=== PATIENT | male | born 1990 | race Caucasian/White ===

== ENCOUNTER 2016-07-13 07:23 | Inpatient (IN) | payer MEDICARE, MEDICAID ==
[~2016-07-13] VITALS: Ht 170.2 cm; Wt 81.2 kg
[2016-07-13 07:24] VITALS: BP 134/77; PULSE 94; RESP 16; TEMP 98.9; O2SAT 98
--- NOTE | 2016-07-13 10:27 | PD ---
HPI Chief Complaint: Psychiatric Symptoms Time Seen by Provider: 10:27 Travel History International Travel<30 days: No Contact w/Intl Traveler<30days: No Traveled to known affect area: No History of Present Illness HPI 26-year-old male came to the emergency room brought by his grandmother with history of major depression, suicidal ideation. She found him last night with a knife and she was afraid he was going to stab himself since he has done that in the recent past. Patient told his grandmother that he was hearing voices of Lucifer. Patient has history of cerebral palsy. He is not on any medications. He does occasional alcohol and marijuana. Patient was brought in voluntarily. [facility]LY [facility] Past Medical History Narrative Medical List of his past medical history as reviewed from the nursing note. Anxiety: No Depression: No Cerebral Palsy: Yes Diminished Hearing: No GERD: Yes Genitourinary: No Musculoskeletal: Yes (CP) Neurologic: No Reproductive: No Respiratory: No Immunizations Current: No Tetanus Vaccination: < 5 Years Past Surgical History Eye Surgery: Yes (EYE SURGERY) Other Surgery: Yes (HAMSTRING RELEASE 10 OR 11 Y/O) Social History Alcohol Use: No Tobacco Use: Yes Substance Use: Yes (RARELY SMOKES MARIJUANA) Allergies-Medications (Allergen,Severity, Reaction): Coded Allergies: *MDRO Multi-Drug Resistant Organism (Verified Allergy, Unknown, 06/18/16) MRSA 2013 & 2014 Comments List of his allergies reviewed from the nursing note. Reported Meds & Prescriptions Reported Meds & Active Scripts Active No Active Prescriptions or Reported Medications Narrative Medication List of his home medications reviewed from the nursing note. Review of Systems Except as stated in HPI: all other systems reviewed are Neg Physical Exam Narrative GENERAL: Awake, alert, no obvious distress SKIN: Warm and dry. HEAD: Atraumatic. Normocephalic. EYES: Pupils equal and round. No scleral icterus. No injection or drainage. Ophthalmoplegia ENT: No nasal bleeding or discharge. Mucous membranes pink and moist. NECK: Trachea midline. No JVD. CARDIOVASCULAR: Regular rate and rhythm. No murmur appreciated. RESPIRATORY: No accessory muscle use. Clear to auscultation. Breath sounds equal bilaterally. GASTROINTESTINAL: Abdomen soft, non-tender, nondistended. Hepatic and splenic margins not palpable. MUSCULOSKELETAL: No obvious deformities. No clubbing. No cyanosis. No edema. NEUROLOGICAL: Awake and alert. No obvious cranial nerve deficits. Motor grossly within normal limits. Normal speech. Cerebral palsy PSYCHIATRIC: Appropriate mood and affect; insight and judgment normal. Data Data Last Documented VS Vital Signs Date Time Temp Pulse Resp B/P Pulse Ox O2 Delivery O2 Flow Rate FiO2 07/13/16 07:24 98.9 94 16 134/77 98 Room Air Orders Complete Blood Count With Diff (07/13/16 10:30) Comprehensive Metabolic Panel (07/13/16 10:30) Drug Screen, Random Urine (07/13/16 10:30) Psych Screen (07/13/16 10:30) Sodium Chlor 0.9% 1000 Ml Inj (Ns 1000 M (07/13/16 11:30) Admit To Inpatient Psych (07/13/16 ) Vital Signs (Adult) YONI.Q12H.E (07/13/16 15:42) Activity Oob Ad Julieta (07/13/16 15:42) Lorazepam (Ativan) (07/13/16 15:45) Lorazepam Inj (Ativan Inj) (07/13/16 15:45) Acetaminophen (Tylenol) (07/13/16 15:45) Magnesium Hydroxide Liq (Milk Of Magnesi (07/13/16 15:45) Al-Mag Hy-Si 40-40-4 Mg/Ml Liq (Mag-Al P (07/13/16 15:45) Admit Order (Ed Use Only) (07/13/16 ) Risperidone (Risperdal) (07/13/16 21:00) Benztropine (Cogentin) (07/13/16 21:00) Labs Laboratory Tests Test 07/13/16 07/13/16 11:00 12:40 White Blood Count 8.2 TH/MM3 Red Blood Count 6.12 MIL/MM3 Hemoglobin 18.5 GM/DL Hematocrit 52.6 % Mean Corpuscular Volume 85.9 FL Mean Corpuscular Hemoglobin 30.3 PG Mean Corpuscular Hemoglobin 35.2 % Concent Red Cell Distribution Width 13.3 % Platelet Count 131 TH/MM3 Mean Platelet Volume 10.6 FL Neutrophils (%) (Auto) 61.1 % Lymphocytes (%) (Auto) 26.6 % Monocytes (%) (Auto) 10.4 % Eosinophils (%) (Auto) 1.4 % Basophils (%) (Auto) 0.5 % Neutrophils # (Auto) 5.0 TH/MM3 Lymphocytes # (Auto) 2.2 TH/MM3 Monocytes # (Auto) 0.8 TH/MM3 Eosinophils # (Auto) 0.1 TH/MM3 Basophils # (Auto) 0.0 TH/MM3 CBC Comment DIFF FINAL Differential Comment Sodium Level 139 MEQ/L Potassium Level 3.9 MEQ/L Chloride Level 106 MEQ/L Carbon Dioxide Level 28.0 MEQ/L Anion Gap 5 MEQ/L Blood Urea Nitrogen 9 MG/DL Creatinine 0.90 MG/DL Estimat Glomerular Filtration 104 ML/MIN Rate Random Glucose 89 MG/DL Calcium Level 9.1 MG/DL Total Bilirubin 1.3 MG/DL Aspartate Amino Transf 12 U/L (AST/SGOT) Alanine Aminotransferase 27 U/L (ALT/SGPT) Alkaline Phosphatase 67 U/L Total Protein 7.3 GM/DL Albumin 4.1 GM/DL Urine Opiates Screen NEG Urine Barbiturates Screen NEG Urine Amphetamines Screen NEG Urine Benzodiazepines Screen NEG Urine Cocaine Screen NEG Urine Cannabinoids Screen POS MDM Medical Decision Making Medical Screen Exam Complete: Yes Emergency Medical Condition: Yes Medical Record Reviewed: Yes Differential Diagnosis Major depression, suicidal ideation Narrative Course 10:42 AM awaiting for blood test results for medical clearance. Patient would require psych screen after that. Procedures EKG Prior to Arrival: No Scripts No Active Prescriptions or Reported Meds Kimmie Castro MD Jul 13, 2016 10:27
[2016-07-13 11:09] LABS: BASOPHIL % 0.5 % (0.0-2.0); EOSINOPHIL # 0.1 TH/MM3 (0-0.4); EOSINOPHIL % 1.4 % (0.0-4.0); HEMATOCRIT 52.6 % (39.0-51.0); HEMO FLAGS DIFF FINAL; LYMPH % 26.6 % (9.0-44.0); LYMPHOCYTE # 2.2 TH/MM3 (1.0-4.8); MEAN CELL VOLUME 85.9 FL (80.0-100.0); MEAN CORPUSCULAR HEMOGLOBIN 30.3 PG (27.0-34.0); MEAN CORPUSCULAR HGB CONC 35.2 % (32.0-36.0); MONO % 10.4 % (0.0-8.0); NEUT % 61.1 % (16.0-70.0); PLATELET COUNT 131 TH/MM3 (150-450); RED BLOOD COUNT 6.12 MIL/MM3 (4.50-5.90); RED CELL DISTRIBUTION WIDTH 13.3 % (11.6-17.2); WHITE BLOOD COUNT 8.2 TH/MM3 (4.0-11.0)
[2016-07-13 11:30] LABS: ALT (GPT) 27 U/L (12-78); ANION GAP 5 MEQ/L (5-15); AST (GOT) 12 U/L (15-37); BLOOD UREA NITROGEN 9 MG/DL (7-18); CHLORIDE 106 MEQ/L (98-107); GLOMERULAR FILTRATION RATE 104 ML/MIN (>89); POTASSIUM 3.9 MEQ/L (3.5-5.1); SODIUM (NA) 139 MEQ/L (136-145)
[2016-07-13] MEDS ORDERED: SODIUM CHLOR 0.9% 1000 ML INJ 1,000 ML IV ONE (11:30)
[2016-07-13 11:32] LABS: ALKALINE PHOSPHATASE 67 U/L (45-117); TOTAL BILIRUBIN ADULT 1.3 MG/DL (0.2-1.0)
[2016-07-13 13:06] LABS: AMPHETAMINE, URINE NEG (NEG); BARBITURATES, URINE NEG (NEG); COCAINE, URINE NEG (NEG)
[2016-07-13] MEDS ORDERED: MAGNESIUM HYDROXIDE SUSP 30 ML CUP PO PRN (15:45)
[2016-07-13] MEDS ORDERED: LORazepam 2 MG/ML VIAL IM PRN ×2 (15:45)
[2016-07-13] MEDS ORDERED: LORazepam 0.5 MG TAB PO PRN (15:45)
[2016-07-13] MEDS ORDERED: ACETAMINOPHEN 325 MG TAB PO PRN (15:45)
[2016-07-13] MEDS ORDERED: LORazepam 1 MG TAB PO PRN (15:45)
[2016-07-13] MEDS ORDERED: ALUMINUM/MAGNESIUM/SIMETH 30 ML CUP PO PRN (15:45)
--- NOTE | 2016-07-13 16:15 | PD.CONS ---
Provisional Diagnosis Admission Date [place] I. Unspecified psychosis [place] II. Deferred [place] III. Cerebral palsy [place] V. 40 History of Present Illness Service Psychiatry Consult Requested By Primary Care Physician Julien Pena M.D. HPI The patient is a 26-year-old man, domiciled with his grandmother, unemployed, supported by [facility], with psychiatric history of intellectual disability, most probably mild to moderate, due to cerebral palsy, no previous hospitalizations, no previous outpatient psychiatric care, no previous suicidal attempts, who came to the emergency room brought by his grandmother with history of depressive symptoms d suicidal ideation, he was brought involuntary basis. As per grandmother, She found him last night with a knife and she was afraid he was going to stab himself since he has done that in the recent past, about 2 weeks ago when she found him with a knife beside him and bleeding in his chest, he first states he staff accidentally, but later he states he was hearing voices. Patient told his grandmother that he was hearing voices of Lucifer. As per grandmother, last night he told her that he wanted to sacrifice himself as voices are telling him in his head. She also explains that for the last 3 weeks he has not been himself, he has been isolated, not talking a lot, no enjoying things that he usually enjoys, talking to self, not taking showers, and refusing to eat. He is wheelchair-bound, able to walk with a walker, he eats independently, our independently, can go out to walk in the neighborhood. On psychiatric evaluation patient is found in position, poorly cooperative , withdrawn, guarded. He had to be redirected several times in order to answer some of our questions. He says that he has been sad in the last weeks, but doesn't elaborate about the reason of his sadness. When he was asked directly about the reason he started himself with a knife in his chest 2 weeks ago, he took time, seemed to be internally preoccupied, but finally said "there are people in my head telling me to and to sacrifice myself". Patient explains that he doesn't want to , that he loves his mother he lost her grandmother, "but they are telling me to , and they're telling him to now". Patient refused to describe the nature of his auditory hallucinations. He also said that he is sad, "very sad", sleeping poorly, with poor appetite, "thinking too much". He denies suicidal and homicidal ideation at this moment. Patient is fully oriented 3, he is concrete, but cognitive assessment is limited due to lack of cooperation. He reports daily use of marijuana, denies use of cocaine, heroine, PCP, amphetamines, benzodiazepines, and and other drugs, he denies the use of alcohol. Review of Systems Endocrine: DENIES: Heat/cold intolerance, Polydipsia, Polyuria, Polyphagia Eyes: DENIES: Blurred vision, Diplopia, Eye inflammation, Eye pain, Vision loss , Photosensitivity, Double Vision Ears, nose, mouth, throat: DENIES: Tinnitus, Hearing loss, Vertigo, Nasal discharge, Oral lesions, Throat pain, Hoarseness, Ear Pain, Running Nose, Epistaxis, Sinus Pain, Toothache, Odynophagia Respiratory: DENIES: Apneas, Cough, Snoring, Wheezing, Hemoptysis, Sputum production, Shortness of breath Cardiovascular: DENIES: Chest pain, Palpitations, Syncope, Dyspnea on Exertion , PND, Lower Extremity Edema, Orthopnea, Claudication Gastrointestinal: DENIES: Abdominal pain, Black stools, Bloody stools, Constipation, Diarrhea, Nausea, Vomiting, Difficulty Swallowing, Anorexia Musculoskeletal: DENIES: Joint pain, Muscle aches, Stiffness, Joint Swelling, Back pain, Neck pain Integumentary: DENIES: Abnormal pigmentation, Nail changes, Pruritus, Rash Hematologic/lymphatic: DENIES: Bruising, Lymphadenopathy Immunologic/allergic: DENIES: Eczema, Urticaria Neurologic: DENIES: Abnormal gait, Headache, Localized weakness, Paresthesias, Seizures, Speech Problems, Tremor, Poor Balance Psychiatric: COMPLAINS OF: Depression, Hallucinations Past Family Social History Coded Allergies: *MDRO Multi-Drug Resistant Organism (Verified Allergy, Unknown, 06/18/16) MRSA 2012 & 2013 No Active Prescriptions or Reported Meds Family History His father is bipolar Social History Patient was born in [place], he lives with his grandmother, he did so schooling a special ed, he is single, on SSI Patient's Strengths (min. 2) Family support Physical Exam Vital Signs Vital Signs Date Time Temp Pulse Resp B/P Pulse Ox O2 Delivery O2 Flow Rate FiO2 07/13/16 07:24 98.9 94 16 134/77 98 Room Air Mental Status Examination Appearance man, looks younger than his stated age, Jimbo extravism, poorly cooperative, guarded Speech: Hesitant, Slow Orientation: x3 Memory: Unremarkable Thought Process: Linear, Other (concrete) Thought Content: Paranoid Hallucination Type: Auditory (commanding type voices, telling him to ) Attention and Concentration: Abnormal Suicidal Ideation: No Previous Suicide Attempts: Yes Homicidal Ideation: No Insight: Poor Judgement: Impulsive Affect: Irritable Affect if Inappropriate: Flat Mood: Oppositional Motor Activity: Abnormal gait-specify (wheelchair-bound) Assessment & Plan Problem List: (1) Unspecified psychosis Assessment & Plan: 26-year-old man, psychiatric history of intellectual disability, most probably mild to moderate, not officially diagnosed, due to cerebral palsy, no previous psychiatric hospitalizations, no previous suicidal attempts, no outpatient psychiatric care in the past, never Nicole acted before, no significant medical history. Who presents brought by his grandmother voluntarily, because in the last 3 weeks patient has been isolated, talking to himself, eating poorly, sleeping poorly, no enjoying life as he usually does, very withdrawn and not taking care of himself. 2 weeks ago patient stabbed himself in the chest, first he said he was accidentally, later on he said he was hearing the voice of lucifer. Last night he was found by his grandmother with a knife beside him and he told her that he wants to sacrifice himself. On psychiatric evaluation today the patient is guarded, poorly communicative, but he does endorses command in type auditory hallucinations of voices telling him to and sacrifice himself. Patient doesn't seem to be insightful about this psychosis, and psychosis is to be egodystonic. At this moment due to the level of peligrosity of his psychosis the patient represents a high risk of danger to self and others and needs psychiatric admission for stabilization and safety. Since this is the first break psychosis Brain CT without contrast will be ordered to rule out brain organic causes. Patient will be Nicole acted and committed for involuntary psychiatric admission. We will restart Risperdal 1 mg twice a day for psychosis, and benztropine 1 mg twice a day to avoid EPS. Please, transfer patient to psychiatric [facility] once a bed is available. Extensive psychoeducation, motivation and support was provided to the patient and also to grandmother. Patient is to be in fall precaution. ICD Code: F29 Assessment & Plan Estimated LOS: days Anthony Correa MD Jul 13, 2016 16:14
--- NOTE | 2016-07-13 16:53 | RADRPT ---
EXAM DATE/TIME: 07/13/2016 16:39 [facility] COMPARISON: CT BRAIN W/O CONTRAST, June 18, 2016, 15:59. INDICATIONS : Altered mental status; psychosis. RADIATION DOSE: 41.05 CTDIvol (mGy) MEDICAL HISTORY : Cerebral palsy. SURGICAL HISTORY : None. ENCOUNTER: Initial ACUITY: 1 day PAIN SCALE: 0/10 LOCATION: cranial TECHNIQUE: Multiple contiguous axial images were obtained of the head. Using automated exposure control and adj ustment of the mA and/or kV according to patient size, radiation dose was kept as low as reasonably a chievable to obtain optimal diagnostic quality images. FINDINGS: Examination quality is degraded by patient motion particularly at the high convexities. CEREBRUM: The ventricles are normal. No evidence of midline shift, mass lesion, hemorrhage or acute infarction . No extra-axial fluid collections are seen. POSTERIOR FOSSA: The cerebellum and brainstem demonstrate no acute finding. The 4th ventricle is midline. The cerebe llopontine angle is unremarkable. EXTRACRANIAL: The visualized sinuses are clear. SKULL: The calvaria is intact. No evidence of skull fracture. CONCLUSION: Examination quality is degraded due to patient motion with limited evaluation of the high convexities . Otherwise, stable examination without an acute finding identified. Julien Tirado MD on July 13, 2016 at 16:48 Board Certified Radiologist. This report was verified electronically.
[2016-07-13 17:56] VITALS: BP 121/71; PULSE 86; RESP 19; O2SAT 97
[2016-07-13 18:16] VITALS: BP 133/81; PULSE 99; RESP 18; TEMP 97.7; O2SAT 95
[2016-07-13] MEDS: BENZTROPINE MESYLATE 1 MG TAB PO SCH (21:39)
[2016-07-13] MEDS: risperiDONE 1 MG TAB PO SCH (21:39)
[2016-07-14 05:31] VITALS: BP 134/61; PULSE 96; RESP 16; TEMP 98.1; O2SAT 98
[2016-07-14] MEDS: BENZTROPINE MESYLATE 1 MG TAB PO SCH ×2 (09:09→20:37)
[2016-07-14] MEDS: risperiDONE 1 MG TAB PO SCH ×2 (09:09→20:37)
[2016-07-14] MEDS ORDERED: ALUMINUM/MAGNESIUM/SIMETH 30 ML CUP PO PRN (10:30)
[2016-07-14] MEDS ORDERED: diphenhydrAMINE HCL 50 MG CAP PO PRN (10:30)
[2016-07-14] MEDS ORDERED: ACETAMINOPHEN 325 MG TAB PO PRN (10:30)
[2016-07-14] MEDS ORDERED: MAGNESIUM HYDROXIDE SUSP 30 ML CUP PO PRN (10:30)
--- NOTE | 2016-07-14 10:43 | HHI.HP ---
Provisional Diagnosis Admission Date Jul 13, 2016 at 15:48 [place] I. Unspecified psychosis, major depressive disorder single episode with psychotic features F 32.3 [place] II. Deferred [place] III. Cerebral palsy [place] V. 40 Certification of Person's Competence To Provide Express and Informed Consent I have personally examined Dash KimJr , a person being served at [facility] on, Jul 14, 2016 10:26. Express and informed consent means consent voluntarily given in writing, by a competent person, after sufficient explanation and disclosure of the subject matter involved to enable the person to make a knowing and willful decision without any element of force, fraud, deceit, duress, or other form of constraint or coercion. This person is 18 years of age or older, is not now known to be incompetent to consent to treatment with a guardian advocate, and does not have a health care surrogate or proxy currently making medical treatment decisions. I have found this person to be one of the following: [] Competent to provide express and informed consent, as defined above, for voluntary admission to this facility and is competent to provide express and informed consent for treatment. He/she has the consistent capacity to make well reasoned, willful, and knowing decisions concerning his or her medical or mental health treatment. The person fully and consistently understands the purpose of the admission for examination/placement and is fully capable of personally exercising all rights assured [place] [x] Incompetent to provide express and informed consent to voluntary admission, and this is incompetent to provide express and informed consent to treatment. The person must be transferred to involuntary status and a petition for a guardian advocate filed with the Circuit Court. [] Refusing to provide express and informed consent to voluntary admission but is competent to provide express and informed consent for treatment. The person must be discharged or transferred to involuntary status. Form shall be completed within 24 hours of a person's arrival at the receiving facility and filed in the clinical record of each person: 1. Admitted on a voluntary basis 2. Permitted to provide express and informed consent to his/her own treatment 3. Allowed to transfer from involuntary to voluntary status 4. Prior to permitting a person to consent to his or her own treatment after having been previously found incompetent to consent to treatment. History of Present Illness Capacity: Lacks Capacity HPI The patient is a 26-year-old man, domiciled with his grandmother, unemployed, supported by [facility], with psychiatric history of intellectual disability, most probably mild to moderate, due to cerebral palsy, no previous hospitalizations, no previous outpatient psychiatric care, no previous suicidal attempts, who came to the emergency room brought by his grandmother with history of depressive symptoms d suicidal ideation, he was brought involuntary basis. As per grandmother, She found him last night with a knife and she was afraid he was going to stab himself since he has done that in the recent past, about 2 weeks ago when she found him with a knife beside him and bleeding in his chest, he first states he staff accidentally, but later he states he was hearing voices. Patient told his grandmother that he was hearing voices of Lucifer. As per grandmother, last night he told her that he wanted to sacrifice himself as voices are telling him in his head. She also explains that for the last 3 weeks he has not been himself, he has been isolated, not talking a lot, no enjoying things that he usually enjoys, talking to self, not taking showers, and refusing to eat. He is wheelchair-bound, able to walk with a walker, he eats independently, our independently, can go out to walk in the neighborhood. On psychiatric evaluation patient is found in position, poorly cooperative , withdrawn, guarded. He had to be redirected several times in order to answer some of our questions. He says that he has been sad in the last weeks, but doesn't elaborate about the reason of his sadness. When he was asked directly about the reason he started himself with a knife in his chest 2 weeks ago, he took time, seemed to be internally preoccupied, but finally said "there are people in my head telling me to and to sacrifice myself". Patient explains that he doesn't want to , that he loves his mother he lost her grandmother, "but they are telling me to , and they're telling him to now". Patient refused to describe the nature of his auditory hallucinations. He also said that he is sad, "very sad", sleeping poorly, with poor appetite, "thinking too much". He denies suicidal and homicidal ideation at this moment. Patient is fully oriented 3, he is concrete, but cognitive assessment is limited due to lack of cooperation. He reports daily use of marijuana, denies use of cocaine, heroine, PCP, amphetamines, benzodiazepines, and and other drugs, he denies the use of alcohol. 07/14/16 Above note dictated by Dr. Rosas reviewed and agreed with Patient seen by me in day room with floor staff, patient continues sad with poor eye contact reluctantly acknowledging the auditory hallucinations of command nature. Though he denies suicidality today. His responses are slow concrete and linear. He has poor eye contact but some of this might be explainable by his CPAP. He does deny any alcohol or drug use denies any homicidality appears patient has no significant prior mental health history the grandmother did state there was some attempt at self injurious behavior within the past few weeks. Is a family history of bipolar with his father. Urine toxicology on admission is positive for marijuana. He also had a contact with us the middle of June 2016 with a positive urine toxicology for marijuana At this time I feel patient does meet criteria for involuntary psychiatric hospitalization I will do first opinion requests a second opinion I also question his ability to make appropriate decisions concerning his care thus I' ll ask for healthcare surrogate and guardian advocate. With their mothers permission we will start him on his Respinol that was ordered by Dr. Rosas and I will add Lexapro 10 mg daily to the regimen. We will also have hospitalist consult with us Review of Systems ROS Limitations: Clinical Condition (CP) Except as stated in HPI: all other systems reviewed are Neg Past Psych History Psychological trauma history Patient lives with grandmother Violence risk - others (6 mos) Low Violence risk - self (6 mos) History of self mutilation Substance Abuse History Drugs/Alcohol past 12 months Patient tox 100 positive for marijuana Past Family Social History Coded Allergies: *MDRO Multi-Drug Resistant Organism (Verified Allergy, Unknown, 06/18/16) MRSA 2012 & 2013 Past Medical History Medically cleared ED history of CP No Active Prescriptions or Reported Meds Current Medications Medications (Trade) Dose Ordered Sig/Parmjit Route Start Time Stop Time Status Last Admin (Ativan) 1 mg Q6H PRN PO 07/13/16 15:45 (Ativan Inj) 1 mg Q6H PRN IM 07/13/16 15:45 (Tylenol) 650 mg Q4H PRN PO 07/13/16 15:45 (Milk Of Magnesia Liq) 30 ml DAILY PRN PO 07/13/16 15:45 (Mag-Al Plus Susp Liq) 30 ml Q6H PRN PO 07/13/16 15:45 (risperDAL) 1 mg Q12HR PO 07/13/16 21:00 07/14/16 09:09 (Cogentin) 1 mg Q12HR PO 07/13/16 21:00 07/14/16 09:09 Family History Patient lives with grandmother father history of bipolar disorder Social History Patient lives with grandmother has had 2 positive urine toxicology for marijuana Patient's Strengths (min. 2) Family support cooperative Physical Exam Patient seen screened in ED exam reviewed and agreed with vital signs blood pressure 134/61 pulse 96 respirations 16 Vital Signs Vital Signs Date Time Temp Pulse Resp B/P Pulse Ox O2 Delivery O2 Flow Rate FiO2 07/14/16 05:31 98.1 96 16 134/61 98 07/13/16 17:56 Room Air Mental Status Examination Alert oriented to person place and time white male sitting in Rupali chair spasticity reflective of CP noted poor to fair eye contact Appearance Clean neatly Speech: Hesitant, Slow Orientation: x3 Memory: Unremarkable Thought Process: Linear, Other (concrete) Thought Content: Paranoid Hallucination Type: Auditory (commanding type voices, telling him to ) Attention and Concentration: Abnormal Suicidal Ideation: No Previous Suicide Attempts: Yes Homicidal Ideation: No Insight: Poor Judgement: Impulsive Affect: Irritable Affect if Inappropriate: Flat Mood: Sad (somewhat restricted), Oppositional Motor Activity: Abnormal gait-specify (wheelchair-bound) Assessment & Plan Problem List: (1) Unspecified psychosis ICD Code: F29 (2) Major depressive disorder with psychotic features ICD Code: F32.3 Assessment & Plan Estimated LOS: 5-7 days patient meets criteria for involuntary psychiatric hospitalization of the Nicole act I'll do first opinion requests second opinion, I question as capacity I will also ask for healthcare surrogate and guardian advocate. Will the hospitalist also says jose ramon. Will have counselor contact patient's grandmother to try to arrange for meeting on 07/16 Discharge Planning To be determined Request HC Surrog/Guard Advoc?: Yes Julien Jackson MD Jul 14, 2016 10:43
--- NOTE | 2016-07-14 15:23 | PD.CONS ---
Provisional Diagnosis Admission Date Jul 13, 2016 at 15:48 Kell I. 1. Unspecified psychosis Rule out affective disorder with psychotic features. Rule out primary psychotic disorder. Kell II. Deferred Kell V. GAF is 35 presently History of Present Illness Service Psychiatry Consult Requested By Dr. Jackson Reason for Consult Second opinion Primary Care Physician Julien Pena M.D. HPI From Dr. Jackson's H&P: The patient is a 26-year-old man, domiciled with his grandmother, unemployed, supported by [facility], with psychiatric history of intellectual disability, most probably mild to moderate, due to cerebral palsy, no previous hospitalizations, no previous outpatient psychiatric care, no previous suicidal attempts, who came to the emergency room brought by his grandmother with history of depressive symptoms d suicidal ideation, he was brought involuntary basis. As per grandmother, She found him last night with a knife and she was afraid he was going to stab himself since he has done that in the recent past, about 2 weeks ago when she found him with a knife beside him and bleeding in his chest, he first states he staff accidentally, but later he states he was hearing voices. Patient told his grandmother that he was hearing voices of Lucifer. As per grandmother, last night he told her that he wanted to sacrifice himself as voices are telling him in his head. She also explains that for the last 3 weeks he has not been himself, he has been isolated, not talking a lot, no enjoying things that he usually enjoys, talking to self, not taking showers, and refusing to eat. He is wheelchair-bound, able to walk with a walker, he eats independently, our independently, can go out to walk in the neighborhood. On psychiatric evaluation patient is found in position, poorly cooperative , withdrawn, guarded. He had to be redirected several times in order to answer some of our questions. He says that he has been sad in the last weeks, but doesn't elaborate about the reason of his sadness. When he was asked directly about the reason he started himself with a knife in his chest 2 weeks ago, he took time, seemed to be internally preoccupied, but finally said "there are people in my head telling me to and to sacrifice myself". Patient explains that he doesn't want to , that he loves his mother he lost her grandmother, "but they are telling me to , and they're telling him to now". Patient refused to describe the nature of his auditory hallucinations. He also said that he is sad, "very sad", sleeping poorly, with poor appetite, "thinking too much". He denies suicidal and homicidal ideation at this moment. Patient is fully oriented 3, he is concrete, but cognitive assessment is limited due to lack of cooperation. He reports daily use of marijuana, denies use of cocaine, heroine, PCP, amphetamines, benzodiazepines, and and other drugs, he denies the use of alcohol. 07/14/16 Above note dictated by Dr. Rosas reviewed and agreed with Patient seen by me in day room with floor staff, patient continues sad with poor eye contact reluctantly acknowledging the auditory hallucinations of command nature. Though he denies suicidality today. His responses are slow concrete and linear. He has poor eye contact but some of this might be explainable by his CPAP. He does deny any alcohol or drug use denies any homicidality appears patient has no significant prior mental health history the grandmother did state there was some attempt at self injurious behavior within the past few weeks. Is a family history of bipolar with his father. Urine toxicology on admission is positive for marijuana. He also had a contact with us the middle of June 2016 with a positive urine toxicology for marijuana At this time I feel patient does meet criteria for involuntary psychiatric hospitalization I will do first opinion requests a second opinion I also question his ability to make appropriate decisions concerning his care thus I' ll ask for healthcare surrogate and guardian advocate. With their mothers permission we will start him on his Respinol that was ordered by Dr. Rosas and I will add Lexapro 10 mg daily to the regimen. We will also have hospitalist consult with us On my examination today: Patient seen and examined. Chart reviewed. I have additionally reviewed the psychiatric screen and note the collateral from grandmother that the patient said something in connection with Lucifer and being sacrificed and may have even stabbed himself in the chest a couple of weeks ago. Case discussed with nurse on the inpatient psychiatric unit. On my examination today, the patient tends to minimize the circumstances of his presentation here. He says of his grandmother" she just wants to make sure I'm all right. She saw me when she woke up with a knife. I'm fine, I really am." Patient denies any suicidal or homicidal ideation at this time but it is unclear that he is reliable to contract for safety. He denies any AVH, nor can I elicit any delusional beliefs at this time. He does admit to some depressive symptomatology including low mood and occasional feelings of hopelessness and worthlessness. He reports his sleep and appetite are fair and he denies any concentration deficit. No hypomanic or manic symptoms noted. Past psychiatric history: Patient denies a history of psychiatric diagnosis. He has been under psychiatric care in the past he says but hasn't seen a psychiatrist in a while. He denies a history of psychiatric admissions. He denies any history of suicide attempts but says that he has made suicidal threats "every once in a while." Family history: Patient reports an extensive family history of bipolar disorder. Chemical dependency history: Patient admits to occasional use of cannabis. Social history: Patient reports that he lives with his grandmother and several friends. He has a GED. He is not presently working. He is unmarried with no children. He denies any legal issues. Denies any access to guns or firearms. Review of Systems ROS Limitations: Poor Historian Other No reported physical complaints today. Past Family Social History Coded Allergies: *MDRO Multi-Drug Resistant Organism (Verified Allergy, Unknown, 06/18/16) MRSA 2012 & 2013 Past Medical History See electronic medical record No Active Prescriptions or Reported Meds Current Medications Medications (Trade) Dose Ordered Sig/Parmjit Route Start Time Stop Time Status Last Admin (Ativan) 1 mg Q6H PRN PO 07/13/16 15:45 (Tylenol) 650 mg Q4H PRN PO 07/13/16 15:45 (Milk Of Magnesia Liq) 30 ml DAILY PRN PO 07/13/16 15:45 (Mag-Al Plus Susp Liq) 30 ml Q6H PRN PO 07/13/16 15:45 (risperDAL) 1 mg Q12HR PO 07/13/16 21:00 07/14/16 09:09 (Cogentin) 1 mg Q12HR PO 07/13/16 21:00 07/14/16 09:09 (Benadryl) 50 mg HS PRN PO 07/14/16 10:30 (Lexapro) 10 mg DAILY PO 07/15/16 09:00 Family History See above Social History See above Patient's Strengths (min. 2) In a monitored setting. Verbally fluent. Physical Exam A physical examination was completed in the emergency room by the ER staff and the patient was medically cleared. On my examination today, the patient appears to be in no acute physical distress. Labs and vital signs reviewed. Vital Signs Vital Signs Date Time Temp Pulse Resp B/P Pulse Ox O2 Delivery O2 Flow Rate FiO2 07/14/16 05:31 98.1 96 16 134/61 98 07/13/16 17:56 Room Air Lab Results Item Value Date Time White Blood Count 8.2 TH/MM3 07/13/16 1100 Hemoglobin 18.5 GM/DL H 07/13/16 1100 Platelet Count 131 TH/MM3 L 07/13/16 1100 Sodium Level 139 MEQ/L 07/13/16 1100 Potassium Level 3.9 MEQ/L 07/13/16 1100 Chloride Level 106 MEQ/L 07/13/16 1100 Carbon Dioxide Level 28.0 MEQ/L 07/13/16 1100 Blood Urea Nitrogen 9 MG/DL 07/13/16 1100 Creatinine 0.90 MG/DL 07/13/16 1100 Total Bilirubin 1.3 MG/DL H 07/13/16 1100 Aspartate Amino Transf (AST/SGOT) 12 U/L L 07/13/16 1100 Alanine Aminotransferase (ALT/SGPT) 27 U/L 07/13/16 1100 Urine Cannabinoids Screen POS H 07/13/16 1240 Mental Status Examination Patient is in hospital gown. He is somewhat disheveled but appears to be maintaining basic hygiene. He is awake and alert and oriented to person and hospital at least. He does have some motoric abnormalities that I suspect her a consequence of his history of cerebral palsy but no hand tremor, no dyskinesias noted. Speech is within normal limits for rate, tone and volume. Language and fund of knowledge may be very slightly reduced for age. Mood is depressed and affect is blunted. Thought process linear. No loosening of associations. No evident delusions. Denies audiovisual hallucinations. Denies suicidal or homicidal ideation but it is unclear that he is reliable to contract for safety. Insight and judgment are unclear. Assessment & Plan Problem List: (1) Unspecified psychosis ICD Code: F29 Assessment & Plan Given the patient's history, the circumstances of his presentation here in his presentation on my examination today, I concur with Dr. Jackson that there are enough residual concerns for safety that the patient meets criteria for involuntary psychiatric hospitalization under the Nicole act. I've completed second opinion paperwork. Further care as per Dr. Jackson. Thank you very much for this consultation. Signing off. Discharge Planning Per Dr. Jackson Request HC Surrog/Guard Advoc?: Yes Dash Bertrand MD Jul 14, 2016 15:23
--- NOTE | 2016-07-14 18:48 | MB ---
cc: GERALD OMALLEY MD DATE OF CONSULTATION 07/14/2016 DATE OF [address] Jackson CONSULTING PHYSICIAN Dr. Gerald Omalley. REASON FOR ADMISSION Major depression with suicidal intention. REASON FOR CONSULTATION Assist in medical management. HISTORY OF THE PRESENT ILLNESS The patient is a pleasant 26-year-old very unfortunate male with a significant past medical history of cerebral palsy. The patient was brought to the ER by his grandma with a history of major depression and suicidal ideation. The patient had a knife and was afraid that going to stab himself since he had done within the recent past. The patient was admitted to psychiatry because of this reason. The patient is seen in his room with RN at present. The patient is denying any complaint. The patient does not remember what happened yesterday. The patient is alert and oriented x3. As per patient his grandmother was getting a knife. The patient denies any headache, dizziness, nausea, vomiting, cough, fever, chills, abdominal pain, chest pain, diaphoresis, palpitations. Denies any genitourinary symptoms. The patient does not know when the last time he had a bowel movement. As per RN at the bedside it is reported that he had a bowel movement yesterday. PAST MEDICAL HISTORY 1. Major depression. 2. Cerebral palsy. PAST SURGICAL HISTORY History of ____ and hamstring surgery. SOCIAL HISTORY The patient does not drink. He rarely smoked marijuana. He smokes cigarettes. MEDICATIONS Reviewed, please EMR. ALLERGIES NO KNOWN DRUG ALLERGIES. HE HAS MULTI DRUG RESISTANT ORGANISM IN THE PAST. FAMILY HISTORY Unable to get it from the patient. REVIEW OF SYSTEMS As described in the history of present illness. Otherwise negative for 10 systems. PHYSICAL EXAMINATION GENERAL: The patient is alert and oriented times three. Well built, well-nourished sitting on a chair without any apparent distress at present. VITAL SIGNS: Show the patient is afebrile. Pulse is 96, respiratory rate 16, blood pressure 134/61. Pulse oximetry is 98% on room air. HEENT: Head is atraumatic, normocephalic. Eyes negative conjunctival icterus. Mouth unremarkable. NECK: Supple. Negative increase in JVD. Negative thyromegaly. Central trachea. CHEST: Clear to auscultation. CARDIOVASCULAR: S1 and S2 audible. Unable to hear any S3 gallop. ABDOMEN: Soft, non-tender, no organomegaly. Positive bowel sounds. MUSCULOSKELETAL: Extremities no cyanosis or pedal edema appreciated. AIRFRAME AND POWERPLANT TECHNICIAN: Alert and oriented. Normal facial features. The patient has (3:46) squints on examination. Pupils equal, round, reactive to light and accommodation. Moving his bilateral upper extremities slowly. Can move his lower extremities slowly. He has a 4/5 to 5/5 lower extremity power. As per the RN he did walk with the help of physical therapy 10 steps with a walker. SKIN: Warm and dry. LABORATORY DATA Investigations, hemoglobin 18.5, hematocrit 52.6, platelet count 131. Total bilirubin 1.3, AST is 12. Drug screen positive for cannabinoids. IMAGING Head CT was done which shows stable exam but quality is degraded due to the patient's motion with limited evaluation of high convexity. ASSESSMENT 1. Severe depression with suicidal intention / ideation. 2. Cerebral palsy. RECOMMENDATIONS Medications reviewed. Psych problem and management as per psychiatrist. We will keep him on a on a as needed basis for constipation. Labs reviewed. High hemoglobin/hematocrit secondary to smoking. Platelet count is 131. The patient has a platelet count in the past. It seems is stable. I explained to the patient. Discussed with RN. We will follow this patient on a as needed basis. Call if needed. Gerald Omalley MD JP/CHANTEL /3:54 PM /6:05 PM
[2016-07-14 19:40] VITALS: BP 123/73; PULSE 78; RESP 18; TEMP 98.8; O2SAT 98
[2016-07-15 06:34] VITALS: BP 101/64; PULSE 94; RESP 16; TEMP 97.3; O2SAT 100
[2016-07-15 07:42] LABS: HEMATOCRIT 50.2 % (39.0-51.0); MEAN CELL VOLUME 86.3 FL (80.0-100.0); MEAN CORPUSCULAR HEMOGLOBIN 29.9 PG (27.0-34.0); MEAN CORPUSCULAR HGB CONC 34.6 % (32.0-36.0); PLATELET COUNT 102 TH/MM3 (150-450); RED BLOOD COUNT 5.81 MIL/MM3 (4.50-5.90); RED CELL DISTRIBUTION WIDTH 13.1 % (11.6-17.2); REVIEW FLAG FINAL; WHITE BLOOD COUNT 5.6 TH/MM3 (4.0-11.0)
[2016-07-15] MEDS: BENZTROPINE MESYLATE 1 MG TAB PO SCH ×2 (09:10→20:26)
[2016-07-15] MEDS: risperiDONE 1 MG TAB PO SCH ×2 (09:10→20:26)
[2016-07-15] MEDS: ESCITALOPRAM OXALATE 10 MG TAB PO SCH (09:10)
--- NOTE | 2016-07-15 11:53 | HHI.PR ---
Subjective Remarks offering no complaint wants to go home ROS for 10 point system is unemarkable Objective Objective Results - Vital Signs Date Time Temp Pulse Resp B/P Pulse Ox O2 Delivery O2 Flow Rate FiO2 07/15/16 06:34 97.3 94 16 101/64 100 07/14/16 19:40 98.8 78 18 123/73 98 I/O 07/14/16 07/14/16 07/14/16 07/15/16 07/15/16 07/15/16 07:00 15:00 23:00 07:00 15:00 23:00 Intake Total 1780 ml 120 ml Balance 1780 ml 120 ml Intake Oral 1780 ml 120 ml # Voids 2 4 2 # Bowel Movements 1 1 Result Diagram: 07/15/16 0733 07/13/16 1100 Other Results Laboratory Tests Test 07/15/16 07:33 White Blood Count 5.6 Red Blood Count 5.81 Hemoglobin 17.4 Hematocrit 50.2 Mean Corpuscular Volume 86.3 Mean Corpuscular Hemoglobin 29.9 Mean Corpuscular Hemoglobin 34.6 Concent Red Cell Distribution Width 13.1 Platelet Count 102 Mean Platelet Volume 10.4 Physical Exam Physical Exam GENERAL: The patient is alert and oriented times three. Well built, well-nourished sitting on a chair without any apparent distress at present. VITAL SIGNS:reviewed HEENT: Head is atraumatic, normocephalic. Eyes negative conjunctival icterus. Mouth unremarkable. NECK: Supple. Negative increase in JVD. CHEST: Clear to auscultation. CARDIOVASCULAR: S1 and S2 audible. Unable to hear any S3 gallop. ABDOMEN: Soft, non-tender, no organomegaly. Positive bowel sounds. MUSCULOSKELETAL: Extremities no cyanosis or pedal edema appreciated. TIMBER SETTER: Alert and oriented. Normal facial features. SKIN: Warm and dry. A/P Assessment and Plan 1. Severe depression with suicidal intention / ideation. 2. Cerebral palsy. RECOMMENDATIONS Psych problem and management as per psychiatrist. MOM for constipation. as per rn had BM yestrday Labs reviewed. High hemoglobin/hematocrit secondary to smoking. Platelet count is 102. The patient has a low platelet count in the past. It seems is stable. I explained to the patient. Discussed with RN. We will follow this patient on a as needed basis. Call if needed. Fay Omalley MD Jul 15, 2016 11:53
--- NOTE | 2016-07-15 12:16 | HHI.PYPN ---
Subjective Remarks Patient seen in dayroom the floor staff, patient calm pleasant with me denies suicidality homicidality, states he visited with his grandmother last night and was a good visit. Patient compliant medications. For now continue treatment Review of Systems Except as stated in HPI: all other systems reviewed are Neg Objective Alert: Yes [place]: Person, Place Mood: Calm Affect: Restricted Memory Intact: Comment (fair) Hallucinations: Other (denies) Delusions: No Delusion Type: Other (vigilant) Suicidal: Ideation (denies today) Homicidal: Ideation (denies today) Insight/Judgement Poor Labs Test 07/15/16 07:33 White Blood Count 5.6 TH/MM3 Red Blood Count 5.81 MIL/MM3 Hemoglobin 17.4 GM/DL Hematocrit 50.2 % Mean Corpuscular Volume 86.3 FL Mean Corpuscular Hemoglobin 29.9 PG Mean Corpuscular Hemoglobin 34.6 % Concent Red Cell Distribution Width 13.1 % Platelet Count 102 TH/MM3 Mean Platelet Volume 10.4 FL Vitals/IOs Vital Signs Date Time Temp Pulse Resp B/P Pulse Ox O2 Delivery O2 Flow Rate FiO2 07/15/16 06:34 97.3 94 16 101/64 100 07/13/16 17:56 Room Air Intake and Output 07/14/16 07/14/16 07/15/16 08:00 16:00 00:00 Intake Total 1180 ml 600 ml Balance 1180 ml 600 ml Assessment & Plan Problem List: (1) Unspecified psychosis ICD Code: F29 Assessment & Plan Estimated LOS: days patient calm cooperative no behavior problems at this time compliant medications. For now continue treatment Justification for Cont. Inpt. At this time patient decompensated placed in the lower level of care Discharge Planning To be determined Request HC Surrog/Guard Advoc?: Yes Julien Jackson MD Jul 15, 2016 12:16
[2016-07-15] MEDS: MAGNESIUM HYDROXIDE SUSP 30 ML CUP PO PRN ×2 (16:54→17:02)
[2016-07-15 18:01] VITALS: RESP 16; TEMP 98.4; O2SAT 99
[2016-07-15 19:27] VITALS: BP 111/61; PULSE 86; RESP 17; TEMP 98.1; O2SAT 97
[2016-07-16 06:00] VITALS: BP 124/66; PULSE 100; RESP 16; TEMP 98.3; O2SAT 96
[2016-07-16] MEDS: risperiDONE 1 MG TAB PO SCH ×2 (09:14→22:14)
[2016-07-16] MEDS: BENZTROPINE MESYLATE 1 MG TAB PO SCH ×2 (09:14→22:14)
[2016-07-16] MEDS: ESCITALOPRAM OXALATE 10 MG TAB PO SCH (09:15)
--- NOTE | 2016-07-16 12:19 | HHI.PYPN ---
Subjective Remarks Patient seen in day room with medical student Alfreda, patient calm pleasant with us. Denies suicidality homicidality voices or visions. He has been no behavioral problem on the unit. It appears grandmother was unable to make it to a meeting today, she talked with our counselor stating she would only be available Tuesday or 's after 5 PM. Will attempt to reach her by phone and by treatment team on 07/19 Review of Systems Except as stated in HPI: all other systems reviewed are Neg Objective Alert: Yes [place]: Person, Place Mood: Calm Affect: Restricted Memory Intact: Comment (fair) Hallucinations: Other (denies) Delusions: No Delusion Type: Other (vigilant) Suicidal: Ideation (denies today) Homicidal: Ideation (denies today) Insight/Judgement Poor to Fair Vitals/IOs Vital Signs Date Time Temp Pulse Resp B/P Pulse Ox O2 Delivery O2 Flow Rate FiO2 07/16/16 06:00 98.3 100 16 124/66 96 07/13/16 17:56 Room Air Intake and Output 07/15/16 07/15/16 07/16/16 08:00 16:00 00:00 Intake Total 120 ml 720 ml Balance 120 ml 720 ml Assessment & Plan Problem List: (1) Unspecified psychosis ICD Code: F29 Assessment & Plan Estimated LOS: days patient improving, now denies suicidality voices visions, appears is some difficulty contacting patient's grandmother who is his caregiver. For now continue treatment Justification for Cont. Inpt. At this time patient will decompensate if placed in a lower level of care Discharge Planning To be determined Request HC Surrog/Guard Advoc?: Yes Julien Jackson MD Jul 16, 2016 12:19
[2016-07-16 19:35] VITALS: BP 137/66; PULSE 109; RESP 16; TEMP 98.5; O2SAT 95
[2016-07-17 06:12] VITALS: BP 145/91; PULSE 114; RESP 18; TEMP 97.6; O2SAT 99
[2016-07-17] MEDS: BENZTROPINE MESYLATE 1 MG TAB PO SCH ×2 (09:00→21:04)
[2016-07-17] MEDS: risperiDONE 1 MG TAB PO SCH ×2 (10:30→21:04)
[2016-07-17] MEDS: ESCITALOPRAM OXALATE 10 MG TAB PO SCH (10:31)
--- NOTE | 2016-07-17 12:41 | HHI.PYPN ---
Subjective Remarks Patient was seen and case discussed with nursing. Patient minimizes reasons for admission. He is vague and denies hearing auditory hallucinations telling him to hurt himself. Denies any voices today. Denies suicidal ideations thought or plan. Compliant with medications Objective Alert: Yes [place]: Person, Place Mood: Calm Affect: Restricted Memory Intact: Comment (fair) Hallucinations: Other (denies) Delusions: No Delusion Type: Other (vigilant) Suicidal: Ideation (denies today) Homicidal: Ideation (denies today) Insight/Judgement Poor Vitals/IOs Vital Signs Date Time Temp Pulse Resp B/P Pulse Ox O2 Delivery O2 Flow Rate FiO2 07/17/16 06:12 97.6 114 18 145/91 99 07/13/16 17:56 Room Air Intake and Output 07/16/16 07/16/16 07/17/16 08:00 16:00 00:00 Intake Total 1080 ml 600 ml Balance 1080 ml 600 ml Assessment & Plan Problem List: (1) Unspecified psychosis ICD Code: F29 Assessment & Plan Continue current treatment plan Justification for Cont. Inpt. Patient will decompensate in a less restrictive setting Request HC Surrog/Guard Advoc?: Yes Kane Zhong DO Jul 17, 2016 12:41
[2016-07-17 18:00] VITALS: BP 119/72; PULSE 93; RESP 17; TEMP 99.2; O2SAT 98
[2016-07-18 05:53] VITALS: BP 137/68; PULSE 102; RESP 16; TEMP 98.1; O2SAT 98
[2016-07-18] MEDS: BENZTROPINE MESYLATE 1 MG TAB PO SCH ×2 (09:00→21:16)
[2016-07-18] MEDS: ESCITALOPRAM OXALATE 10 MG TAB PO SCH (09:00)
[2016-07-18] MEDS: risperiDONE 1 MG TAB PO SCH ×2 (09:00→21:16)
--- NOTE | 2016-07-18 12:40 | HHI.PYPN ---
Subjective Remarks Patient was seen and case discussed with nursing. Patient is pleasant and cooperative with exam. Compliant with medications. A productive visit with his family yesterday. Patient continues to deny auditory visual hallucinations. He is guarded and flat during the interview. Mood is "okay." Objective Alert: Yes [place]: Person, Place Mood: Calm Affect: Restricted Memory Intact: Comment (fair) Hallucinations: Other (denies) Delusions: No Delusion Type: Other (vigilant) Suicidal: Ideation (denies today) Homicidal: Ideation (denies today) Insight/Judgement Poor Vitals/IOs Vital Signs Date Time Temp Pulse Resp B/P Pulse Ox O2 Delivery O2 Flow Rate FiO2 07/18/16 05:53 98.1 102 16 137/68 98 Intake and Output 07/17/16 07/17/16 07/18/16 08:00 16:00 00:00 Intake Total 0 ml 1080 ml 240 ml Balance 0 ml 1080 ml 240 ml Assessment & Plan Problem List: (1) Unspecified psychosis ICD Code: F29 Assessment & Plan Patient will decompensate in a less restrictive setting Justification for Cont. Inpt. Continue current treatment plan Request HC Surrog/Guard Advoc?: Yes Kane Zhong DO Jul 18, 2016 12:40
[2016-07-18 18:00] VITALS: BP 122/68; PULSE 67; RESP 16; TEMP 97.5; O2SAT 98
[2016-07-19 05:45] VITALS: BP 128/58; PULSE 95; RESP 17; TEMP 97.1; O2SAT 98
[2016-07-19] MEDS: BENZTROPINE MESYLATE 1 MG TAB PO SCH ×2 (08:26→20:23)
[2016-07-19] MEDS: risperiDONE 1 MG TAB PO SCH ×2 (08:27→20:23)
[2016-07-19] MEDS: ESCITALOPRAM OXALATE 10 MG TAB PO SCH (08:27)
--- NOTE | 2016-07-19 15:39 | HHI.PYPN ---
Subjective Remarks Patient discussed with treatment team and medical student Alfreda, chart review , patient seen on unit. Patient continues calm cooperative with me. Does not denies suicidality homicidality voices or visions. Compliant medications. We are unable to contact patient's grandmother today did talk about placement issues will attempt again tomorrow Review of Systems Except as stated in HPI: all other systems reviewed are Neg Objective Alert: Yes [place]: Person, Place Mood: Calm Affect: Restricted Memory Intact: Comment (fair) Hallucinations: Other (denies) Delusions: No Delusion Type: Other (vigilant) Suicidal: Ideation (denies today) Homicidal: Ideation (denies today) Insight/Judgement Very poor Vitals/IOs Vital Signs Date Time Temp Pulse Resp B/P Pulse Ox O2 Delivery O2 Flow Rate FiO2 07/19/16 05:45 97.1 95 17 128/58 98 Intake and Output 07/18/16 07/18/16 07/19/16 08:00 16:00 00:00 Intake Total 0 ml 1580 ml 600 ml Balance 0 ml 1580 ml 600 ml Assessment & Plan Problem List: (1) Unspecified psychosis ICD Code: F29 Assessment & Plan Estimated LOS: days patient calmer today now denies suicidality voices or visions. Compliant medications, need further conversation with patient's grandmother about placement Justification for Cont. Inpt. At this time patient will decompensate if placed in a lower level of care Discharge Planning To be determined Request HC Surrog/Guard Advoc?: Yes Julien Jackson MD Jul 19, 2016 15:39
[2016-07-19 18:34] VITALS: BP 116/63; PULSE 75; RESP 17; TEMP 98.6; O2SAT 98
[2016-07-20 06:25] VITALS: BP 117/59; PULSE 82; RESP 18; TEMP 97.6; O2SAT 98
[2016-07-20] MEDS: risperiDONE 1 MG TAB PO SCH (09:00)
[2016-07-20] MEDS: ESCITALOPRAM OXALATE 10 MG TAB PO SCH (09:00)
[2016-07-20] MEDS: BENZTROPINE MESYLATE 1 MG TAB PO SCH (09:00)
[2016-07-20] MEDS ORDERED: ESCI10TA PO (13:39)
[2016-07-20] MEDS ORDERED: RISP1 PO (13:39)
[2016-07-20] MEDS ORDERED: BENZ1TAB PO (13:39)
--- NOTE | 2016-07-20 13:47 | HHI.DS ---
Psychiatry Discharge Summary Inpatient Psychiatric care?: Yes Advance Directive: No Reason Not Provided: Due to Patient Condition Mental Health AdvanceDirective: No Health Care Proxy: No Admission Admission Date Jul 13, 2016 at 15:48 Admission Diagnosis: (1) Major depressive disorder with psychotic features ICD Code: F32.[address] Jackson's H&P: The patient is a 26-year-old man, domiciled with his grandmother, unemployed, supported by [facility], with psychiatric history of intellectual disability, most probably mild to moderate, due to cerebral palsy, no previous hospitalizations, no previous outpatient psychiatric care, no previous suicidal attempts, who came to the emergency room brought by his grandmother with history of depressive symptoms d suicidal ideation, he was brought involuntary basis. As per grandmother, She found him last night with a knife and she was afraid he was going to stab himself since he has done that in the recent past, about 2 weeks ago when she found him with a knife beside him and bleeding in his chest, he first states he staff accidentally, but later he states he was hearing voices. Patient told his grandmother that he was hearing voices of Lucifer. As per grandmother, last night he told her that he wanted to sacrifice himself as voices are telling him in his head. She also explains that for the last 3 weeks he has not been himself, he has been isolated, not talking a lot, no enjoying things that he usually enjoys, talking to self, not taking showers, and refusing to eat. He is wheelchair-bound, able to walk with a walker, he eats independently, our independently, can go out to walk in the neighborhood. On psychiatric evaluation patient is found in position, poorly cooperative , withdrawn, guarded. He had to be redirected several times in order to answer some of our questions. He says that he has been sad in the last weeks, but doesn't elaborate about the reason of his sadness. When he was asked directly about the reason he started himself with a knife in his chest 2 weeks ago, he took time, seemed to be internally preoccupied, but finally said "there are people in my head telling me to and to sacrifice myself". Patient explains that he doesn't want to , that he loves his mother he lost her grandmother, "but they are telling me to , and they're telling him to now". Patient refused to describe the nature of his auditory hallucinations. He also said that he is sad, "very sad", sleeping poorly, with poor appetite, "thinking too much". He denies suicidal and homicidal ideation at this moment. Patient is fully oriented 3, he is concrete, but cognitive assessment is limited due to lack of cooperation. He reports daily use of marijuana, denies use of cocaine, heroine, PCP, amphetamines, benzodiazepines, and and other drugs, he denies the use of alcohol. 07/14/16 Above note dictated by Dr. Rosas reviewed and agreed with Patient seen by me in day room with floor staff, patient continues sad with poor eye contact reluctantly acknowledging the auditory hallucinations of command nature. Though he denies suicidality today. His responses are slow concrete and linear. He has poor eye contact but some of this might be explainable by his CPAP. He does deny any alcohol or drug use denies any homicidality appears patient has no significant prior mental health history the grandmother did state there was some attempt at self injurious behavior within the past few weeks. Is a family history of bipolar with his father. Urine toxicology on admission is positive for marijuana. He also had a contact with us the middle of June 2016 with a positive urine toxicology for marijuana At this time I feel patient does meet criteria for involuntary psychiatric hospitalization I will do first opinion requests a second opinion I also question his ability to make appropriate decisions concerning his care thus I' ll ask for healthcare surrogate and guardian advocate. With their mothers permission we will start him on his Respinol that was ordered by Dr. Rosas and I will add Lexapro 10 mg daily to the regimen. We will also have hospitalist consult with us On my examination today: Patient seen and examined. Chart reviewed. I have additionally reviewed the psychiatric screen and note the collateral from grandmother that the patient said something in connection with Lucifer and being sacrificed and may have even stabbed himself in the chest a couple of weeks ago. Case discussed with nurse on the inpatient psychiatric unit. On my examination today, the patient tends to minimize the circumstances of his presentation here. He says of his grandmother" she just wants to make sure I'm all right. She saw me when she woke up with a knife. I'm fine, I really am." Patient denies any suicidal or homicidal ideation at this time but it is unclear that he is reliable to contract for safety. He denies any AVH, nor can I elicit any delusional beliefs at this time. He does admit to some depressive symptomatology including low mood and occasional feelings of hopelessness and worthlessness. He reports his sleep and appetite are fair and he denies any concentration deficit. No hypomanic or manic symptoms noted. Past psychiatric history: Patient denies a history of psychiatric diagnosis. He has been under psychiatric care in the past he says but hasn't seen a psychiatrist in a while. He denies a history of psychiatric admissions. He denies any history of suicide attempts but says that he has made suicidal threats "every once in a while." Family history: Patient reports an extensive family history of bipolar disorder. Chemical dependency history: Patient admits to occasional use of cannabis. Social history: Patient reports that he lives with his grandmother and several friends. He has a GED. He is not presently working. He is unmarried with no children. He denies any legal issues. Denies any access to guns or firearms. Tobacco Use In Past 30 Days: No Tobacco Past 30 Days Alcohol Use: Never Hospital Course Patient showed good behavior from admission, compliant medications, was cooperative with staff with help with his ADLs and hygiene. He denies suicidality homicidality voices or visions. The medications were managed, he tolerating them without problems, the psychosis did resolve also. Patient is been no behavior problems with past few days. At this time he no longer meets criteria for inpatient psychiatric stay. Thus will be discharged today. [place] to transport him later this afternoon to his grandmother's house. Rx 1 month. Follow-up medical services of the community Results Blood Pressure 117 / 59 Vital Signs Date Time Temp Pulse Resp B/P Pulse Ox O2 Delivery O2 Flow Rate FiO2 07/20/16 06:25 97.6 82 18 117/59 98 Urine toxicology positive for marijuana Summary of Procedures None done Imaging Last Impressions Head CT 07/13/16 0000 Signed Impressions: Service Date/Time: Wednesday, July 13, 2016 16:39 - CONCLUSION: Examination quality is degraded due to patient motion with limited evaluation of the high convexities. Otherwise, stable examination without an acute finding identified. Julien Tirado MD Pending results at discharge: No Medications # of Antipsychotic meds at D/C: 1 Approp Antipsych med options 1 - Minimum of three failed multiple trials of monotherapy. 2 - Documented plan to taper to monotherapy due to previous use of multiple meds OR cross-taper in progress at D/C. 3 - Documentation of augmentation of Clozapine. 4 - Justification other than those listed in allowable values 1-3, document here : Discharge Discharge Date: Jul 20, 2016 Discharge Diagnosis: (1) Major depressive disorder with psychotic features Diagnosis: Principal ICD Code: F32.3 Mental Status Exam at Disch Alert oriented white male sitting in Rupali chair spasticity movements from CP noted, he is otherwise normal active, mood is euthymic to somewhat restricted, affect shows decreased range intensity. He denies auditory or visual hallucinations, no delusions noted insight and judgment is poor cognition is grossly intact Pt Condition on Discharge: Stable Discharge Disposition: Discharge Home (as tolerated with his CPAP) Discharge Instructions Diet Instructions: As Tolerated, No Restrictions Activities you can perform: Regular-No Restrictions Scheduled Appointment: [facility] Appointment Date: Jul 22, 2016 Appointment Time: 1:45 Discharge Time > 30 minutes Discharge/Advance Care Plan Health Problems: (1) Unspecified psychosis Goals to promote your health * To prevent worsening of your condition and complications * To maintain your health at the optimal level Directions to meet your goals Take your medications as prescribed Follow your dietary instruction Follow activity as directed Keep your appointments as scheduled Take your immunizations and boosters as scheduled If your symptoms worsen call your PCP, if no PCP go to Urgent Care Center or Emergency Room For 24/01 questions related to your inpatient stay or results of tests pending at discharge, please contact Dr. Julien Jackson at Smoking is Dangerous to Your Health. Avoid second hand smoking Julien Jackson MD Jul 20, 2016 13:47
== END 2016-07-20 17:30 | disposition home or self-care (01) | DRG 885 ==
LOC: NEPC 07:23 → NEDA 15:48 → H250 18:10
PROVIDERS: ADMIT Psychiatry & Neurology Psychiatry; ATTEND Psychiatry & Neurology Psychiatry
DX: F32.3 Major depressive disorder, single episode, severe with psychotic features (principal); G80.9 Cerebral palsy, unspecified; F17.210 Nicotine dependence, cigarettes, uncomplicated
CPT/HCPCS: 70450; 80053; 80307; 85025; 85027; 99284

== ENCOUNTER 2017-04-21 19:26 | Emergency (ER) | payer MEDICARE, MEDICAID ==
[~2017-04-21] VITALS: Ht 170.2 cm; Wt 77.0 kg
[~2017-04-21 19:26] MED LIST: BENZ1TAB PO; ESCI10TA PO; RISP1 PO
[2017-04-21 19:28] VITALS: BP 150/82; PULSE 83; RESP 16; TEMP 98.1; O2SAT 98
[2017-04-21] MEDS ORDERED: Cogentin (20:01)
[2017-04-21] MEDS ORDERED: SODIUM CHLOR 0.9% 1000 ML INJ 1,000 ML IV ONE (21:00)
[2017-04-21] MEDS ORDERED: ONDANSETRON HCL 4 MG/2 ML VIAL IV PUSH ONE (21:00)
--- NOTE | 2017-04-21 21:14 | RADRPT ---
EXAM DATE/TIME: 04/21/2017 20:54 [facility] COMPARISON: CT BRAIN W/O CONTRAST, July 13, 2016, 16:39. INDICATIONS : Dizziness. RADIATION DOSE: 39.84 CTDIvol (mGy) MEDICAL HISTORY : Cerebral palsy. SURGICAL HISTORY : None. ENCOUNTER: Initial ACUITY: 1 day PAIN SCALE: 0/10 LOCATION: cranial TECHNIQUE: Multiple contiguous axial images were obtained of the head. Using automated exposure control and adj ustment of the mA and/or kV according to patient size, radiation dose was kept as low as reasonably a chievable to obtain optimal diagnostic quality images. DICOM format image data is available electro nically for review and comparison. FINDINGS: CEREBRUM: The ventricles are normal for age. No evidence of midline shift, mass lesion, hemorrhage or acute in farction. No extra-axial fluid collections are seen. POSTERIOR FOSSA: The cerebellum and brainstem are intact. The 4th ventricle is midline. The cerebellopontine angle i s unremarkable. EXTRACRANIAL: The visualized portion of the orbits is intact. SKULL: The calvaria is intact. No evidence of skull fracture. CONCLUSION: Normal examination. No significant change has occurred. Johnathan Constantino MD on April 21, 2017 at 21:12 Board Certified Radiologist. This report was verified electronically.
[2017-04-21 21:56] LABS: AUTOMATED NEUTROPHIL # 5.9 TH/MM3 (1.8-7.7); BASOPHIL % 0.4 % (0.0-2.0); EOSINOPHIL % 0.5 % (0.0-4.0); HEMATOCRIT 50.1 % (39.0-51.0); HEMO FLAGS DIFF FINAL; LYMPH % 18.3 % (9.0-44.0); LYMPHOCYTE # 1.5 TH/MM3 (1.0-4.8); MEAN CORPUSCULAR HEMOGLOBIN 30.4 PG (27.0-34.0); MONO % 9.8 % (0.0-8.0); PLATELET COUNT 141 TH/MM3 (150-450); RED BLOOD COUNT 5.76 MIL/MM3 (4.50-5.90); RED CELL DISTRIBUTION WIDTH 13.1 % (11.6-17.2); WHITE BLOOD COUNT 8.3 TH/MM3 (4.0-11.0)
[2017-04-21 22:57] LABS: ALT (GPT) 34 U/L (12-78); ANION GAP 6 MEQ/L (5-15); AST (GOT) 13 U/L (15-37); BICARBONATE 29.7 MEQ/L (21.0-32.0); BLOOD UREA NITROGEN 10 MG/DL (7-18); CHLORIDE 106 MEQ/L (98-107); GLOMERULAR FILTRATION RATE 105 ML/MIN (>89); POTASSIUM 3.5 MEQ/L (3.5-5.1); SODIUM (NA) 142 MEQ/L (136-145)
[2017-04-21 22:59] LABS: ALKALINE PHOSPHATASE 72 U/L (45-117); TOTAL BILIRUBIN ADULT 1.3 MG/DL (0.2-1.0)
[2017-04-21] MEDS ORDERED: ZOFR4TAB3 SL (23:08)
--- NOTE | 2017-04-21 23:08 | PD ---
HPI Chief Complaint: GI Complaint Time Seen by Provider: 20:05 Travel History International Travel<30 days: No Contact w/Intl Traveler<30days: No Traveled to known affect area: No History of Present Illness HPI This is a 26-year-old male who has a history of cerebral palsy who presents to the emergency department with vomiting. He says that for 4 days he's been feeling nauseous, constant, moderate severity, associated with multiple episodes of vomiting. He's not been able to keep anything down. He also had a headache initially when the vomiting started but that since subsided. He denies any fevers or chills. He denies any diarrhea. He's had no sick contacts. PFSH Past Medical History Anxiety: No Depression: No Cancer: No Cardiovascular Problems: No Cerebral Palsy: Yes Diabetes: No Diminished Hearing: No GERD: Yes Genitourinary: No Headaches: No Musculoskeletal: Yes (CP) Neurologic: No Psychiatric: No Reproductive: No Respiratory: No Immunizations Current: Yes Seizures: No Past Surgical History Eye Surgery: Yes (EYE SURGERY) Other Surgery: Yes (HAMSTRING RELEASE 10 OR 11 Y/O) Social History Alcohol Use: No Tobacco Use: No Substance Use: Yes (RARELY SMOKES MARIJUANA) Allergies-Medications (Allergen,Severity, Reaction): Coded Allergies: *MDRO Multi-Drug Resistant Organism (Verified Allergy, Unknown, 04/21/17) MRSA 2012 & 2014 Reported Meds & Prescriptions Reported Meds & Active Scripts Active Risperdal (Risperidone) 1 Mg Tab 1 Mg PO Q12HR Escitalopram (Escitalopram Oxalate) 10 Mg Tab 10 Mg PO DAILY Reported [Cogentin] Review of Systems Except as stated in HPI: all other systems reviewed are Neg Physical Exam Narrative GENERAL:Well appearing, no acute distress SKIN: Focused skin assessment warm and dry. HEAD: Atraumatic. Normocephalic. EYES: Pupils equal and round. No injection or drainage. ENT: Moist mucous membranes NECK: Trachea midline. CARDIOVASCULAR: Regular rate and rhythm. No murmur appreciated. RESPIRATORY: Clear to auscultation. Breath sounds equal bilaterally. GASTROINTESTINAL: Abdomen soft, non-tender, nondistended. MUSCULOSKELETAL: No obvious deformities. NEUROLOGICAL: Awake and alert. No obvious cranial nerve deficits. No dysarthria or aphasia. PSYCHIATRIC: Appropriate mood and affect; insight and judgment normal. Data Data Last Documented VS Vital Signs Date Time Temp Pulse Resp B/P (MAP) Pulse Ox O2 Delivery O2 Flow Rate FiO2 04/21/17 19:28 98.1 83 16 150/82 (104) 98 Room Air Orders Orders Complete Blood Count With Diff (04/21/17 20:46) Comprehensive Metabolic Panel (04/21/17 20:46) ^ Insert Iv (04/21/17 20:46) Lipase (04/21/17 20:46) Urinalysis - C+S If Indicated (04/21/17 20:46) Sodium Chlor 0.9% 1000 Ml Inj (Ns 1000 M (04/21/17 21:00) Ondansetron Inj (Zofran Inj) (04/21/17 21:00) Ct Brain W/O Iv Contrast(Rout) (04/21/17 ) Labs Laboratory Tests Test 04/21/17 20:52 04/21/17 22:28 White Blood Count 8.3 TH/MM3 Red Blood Count 5.76 MIL/MM3 Hemoglobin 17.5 GM/DL Hematocrit 50.1 % Mean Corpuscular Volume 87.0 FL Mean Corpuscular Hemoglobin 30.4 PG Mean Corpuscular Hemoglobin Concent 35.0 % Red Cell Distribution Width 13.1 % Platelet Count 141 TH/MM3 Mean Platelet Volume 11.2 FL Neutrophils (%) (Auto) 71.0 % Lymphocytes (%) (Auto) 18.3 % Monocytes (%) (Auto) 9.8 % Eosinophils (%) (Auto) 0.5 % Basophils (%) (Auto) 0.4 % Neutrophils # (Auto) 5.9 TH/MM3 Lymphocytes # (Auto) 1.5 TH/MM3 Monocytes # (Auto) 0.8 TH/MM3 Eosinophils # (Auto) 0.0 TH/MM3 Basophils # (Auto) 0.0 TH/MM3 CBC Comment DIFF FINAL Differential Comment Blood Urea Nitrogen 10 MG/DL Creatinine 0.89 MG/DL Random Glucose 79 MG/DL Total Protein 7.1 GM/DL Albumin 3.9 GM/DL Calcium Level 8.2 MG/DL Alkaline Phosphatase 72 U/L Aspartate Amino Transf (AST/SGOT) 13 U/L Alanine Aminotransferase (ALT/SGPT) 34 U/L Total Bilirubin 1.3 MG/DL Sodium Level 142 MEQ/L Potassium Level 3.5 MEQ/L Chloride Level 106 MEQ/L Carbon Dioxide Level 29.7 MEQ/L Anion Gap 6 MEQ/L Estimat Glomerular Filtration Rate 105 ML/MIN Lipase 79 U/L MDM Medical Decision Making Medical Screen Exam Complete: Yes Emergency Medical Condition: Yes Differential Diagnosis Gastroenteritis, intracranial hemorrhage, urinary tract infection, pyelonephritis, small bowel obstruction Narrative Course This is a 26-year-old male who presents to the emergency department with nausea and vomiting that been going on for 4 days. Labs are obtained which are reassuring. CT the head was unremarkable with no evidence of intracranial hemorrhage. Patient was given IV fluids and antiemetics. I suspect his vomiting is related to a viral syndrome although I was slightly concerned because he's had no diarrhea component. Given his labs are all reassuring at think it's reasonable to discharge him on some symptomatic management. Diagnosis Primary Impression: Vomiting Qualified Codes: R11.2 - Nausea with vomiting, unspecified Patient Instructions: General Instructions Additional Instructions: If you develop severe or worsening abdominal pain, fever>100.4, persistent vomiting or inability to eat or drink return to the emergency department immediately. Follow up with your primary care physician in 1-2 days for a check-up. Med/Other Pt SpecificInfo: Prescription(s) given Scripts Ondansetron Odt (Zofran Odt) 4 Mg Tab 4 MG SL Q6HR Y for Nausea/Vomiting, #15 TAB 0 Refills Prov: Zayra Kate MD 04/21/17 Disposition: 01 DISCHARGE HOME Condition: Stable Zayra Kate MD Apr 21, 2017 23:08
[2017-04-21] MEDS ORDERED: SODIUM CHLOR 0.9% 1000 ML INJ 1,000 ML IV SCH (23:15)
[2017-04-22 01:13] LABS: BLOOD, URINE NEG (NEG); COMMENT (UR) CULT NOT INDICATED; CULTURE IF INDICATED CULT NOT INDICATED; GLUCOSE,URINE NEG (NEG); KETONE, URINE 80 mg/dL (NEG); MUCUS URINE FEW /lpf (OCC); NITRITE,URINE NEG (NEG); PH, URINE 8.5 (5.0-8.5); URINE COLOR YELLOW (YELLW/STRAW)
[2017-04-22] MEDS ORDERED: ONDANSETRON HCL 4 MG/2 ML VIAL IV PUSH ONE (01:45)
[2017-04-22 02:29] VITALS: BP 136/80
[2017-04-25] MEDS ORDERED: BENZ0.5T PO (11:32)
== END 2017-04-22 02:31 | disposition home or self-care (01) ==
LOC: NEPD 19:26
DX: R11.2 Nausea with vomiting, unspecified (principal); G80.9 Cerebral palsy, unspecified
CPT/HCPCS: 70450; 80053; 81001; 83690; 85025; 96361; 96374; 96376; 99285; J2405; J7030; P9612

== ENCOUNTER 2017-12-28 14:16 | Emergency (ER) | payer MEDICARE, MEDICAID ==
[~2017-12-28] VITALS: Ht 170.2 cm; Wt 69.0 kg
[~2017-12-28 14:16] MED LIST changes: +BENZ0.5T PO; -BENZ1TAB PO; +ZOFR4TAB3 SL
[2017-12-28 14:26] VITALS: BP 130/71; PULSE 92; RESP 18; TEMP 98.3; O2SAT 98
[2017-12-28] MEDS ORDERED: LIDOCAINE HCL 1% 50 ML VIAL INFIL ONE (15:00)
[2017-12-28] MEDS ORDERED: TETANUS/DIPHTHERIA TOXOID ADULT 0.5 ML VIAL IM ONE (15:00)
--- NOTE | 2017-12-28 15:14 | PD ---
HPI Chief Complaint: Laceration/Skin Injury Time Seen by Provider: 14:34 Travel History International Travel<30 days: No Contact w/Intl Traveler<30days: No Traveled to known affect area: No History of Present Illness HPI 27-year-old [id number] male with PMH of CP presents the ED for evaluation of laceration of the right wrist. Pain is aching, rated 7/10, worsened by attempted R OM. Patient states that he was attempting to get into the tub when the porcelain soap dish broke and he fell, cutting his wrist in the process. He denies hitting his head or loss of consciousness. On presentation he denies numbness, tingling, weakness, limitations range of motion of the extremity. He denies previous injury to the area. He is unsure of the date of his last tetanus booster. PFSH Past Medical History Anxiety: No Depression: No Cancer: No Cardiovascular Problems: No Cerebral Palsy: Yes Diabetes: No Diminished Hearing: No GERD: Yes Genitourinary: No Headaches: No Musculoskeletal: Yes (CP) Neurologic: No Psychiatric: No Reproductive: No Respiratory: No Immunizations Current: Yes Seizures: No Tetanus Vaccination: < 5 Years Past Surgical History Eye Surgery: Yes (EYE SURGERY) Other Surgery: Yes (HAMSTRING RELEASE 10 OR 11 Y/O) Social History Alcohol Use: No Tobacco Use: Yes Substance Use: Yes (MARIJUANA) Allergies-Medications (Allergen,Severity, Reaction): Coded Allergies: *MDRO Multi-Drug Resistant Organism (Verified Allergy, Unknown, 04/21/17) MRSA 2012 & 2014 Reported Meds & Prescriptions Reported Meds & Active Scripts Active Zofran Odt (Ondansetron Odt) 4 Mg Tab 4 Mg SL Q6HR PRN Risperdal (Risperidone) 1 Mg Tab 1 Mg PO Q12HR Escitalopram (Escitalopram Oxalate) 10 Mg Tab 10 Mg PO DAILY Reported Benztropine (Benztropine Mesylate) 0.5 Mg Tab 1 Mg PO Q12HR Review of Systems Except as stated in HPI: all other systems reviewed are Neg Physical Exam Narrative GENERAL: Well-nourished, well-developed white male no acute distress. SKIN: Focused skin assessment warm/dry. 6 cm laceration volar surface right hand, extending to the hyperthenar eminence HEAD: Normocephalic. EYES: No scleral icterus. No injection or drainage. NECK: Supple, trachea midline. No JVD or lymphadenopathy. CARDIOVASCULAR: Regular rate and rhythm without murmurs, gallops, or rubs. RESPIRATORY: Breath sounds equal bilaterally. No accessory muscle use. GASTROINTESTINAL: Abdomen soft, non-tender, nondistended. MUSCULOSKELETAL: No cyanosis, or edema. FOCUSED RIGHT UPPER EXTREMITY EXAM: Patient has involuntary spasm and contracture of the wrist joint. There is a 2+ DP radial pulse. Patient is able to make a fist and extend the fingers. Sensation intact on each digit distally. Cap refill less than 5 seconds on each digit distally. BACK: Nontender without obvious deformity. No CVA tenderness. Data Data Last Documented VS Vital Signs Date Time Temp Pulse Resp B/P (MAP) Pulse Ox O2 Delivery O2 Flow Rate FiO2 12/28/17 14:26 98.3 92 18 130/71 (90) 98 Orders Orders Tetanus/Diphtheria Tox Adult (Tetanus/Di (12/28/17 15:00) Lidocaine 1% Inj (50 Ml) (Xylocaine 1% I (12/28/17 15:00) Ed Discharge Order (12/28/17 16:03) MDM Medical Decision Making Medical Screen Exam Complete: Yes Emergency Medical Condition: Yes Differential Diagnosis Laceration versus abrasion versus need for tetanus immunization versus other Narrative Course 27-year-old male with PMH of CP presents to the ED for evaluation of laceration of the right hand, sustained while he was trying to get into the bathtub and a porcelain fixture broke. Physical exam reveals a laceration without any tenderness or neurovascular injury. Laceration repair was performed. Tetanus immunization was updated. A volar splint was applied to attempt to decrease flexion while sutures are healing. Patient is given detailed wound care instructions. He stable and discharged home. Procedures Procedure Narrative LACERATION LOCATION: Anterior aspect distal wrist extending to the hyperthenar eminence LENGTH: 7 cm NUMBER OF STITCHES/HAYLEY: 9 REPAIR: The area of the laceration was prepped with Betadine and sterilely draped. The laceration was infiltrated with 1% lidocaine. The wound was copiously irrigated and explored without evidence of foreign body, tendon injury or neurovascular injury. The wound was closed using 4-0 Prolene]. This was a single layer repair. A sterile dressing was applied. The patient was advised to keep the dressing clean and dry. Patient tolerated the procedure well. Diagnosis Primary Impression: Laceration of right wrist without complication Qualified Codes: S61.511A - Laceration without foreign body of right wrist, initial encounter Additional Impression: Immunization, tetanus toxoid Referrals: Primary Care Physician Additional Instructions: Rest, hydrate. Keep the wound clean, dry and covered. Do not change the dressing for 2 days. Do not submerge the wound. After bathing pat of wound dry. Allow the wound to air dry for 10-15 minutes. Apply a thin layer of antibiotic ointment and a clean, dry dressing. Change dressing anytime the dressing becomes wet or soiled. Monitor for signs of infection such as redness, warmth, discharge. Utilize [id number] pain medications, as described on the label, as needed. Suture removal in 7-10 days. Follow-up with your primary care provider. Return to the ED for any urgent or emergent medical condition. Disposition: 01 DISCHARGE HOME Condition: Stable Bridgett Cardenas Dec 28, 2017 15:14
== END 2017-12-28 16:53 | disposition home or self-care (01) ==
LOC: NEPD 14:16
DX: S61.511A Laceration without foreign body of right wrist, initial encounter (principal); G80.9 Cerebral palsy, unspecified; Z72.0 Tobacco use; Z23 Encounter for immunization; Z79.899 Other long term (current) drug therapy; W18.2XXA Fall in (into) shower or empty bathtub, initial encounter; Y93.E1 Activity, personal bathing and showering
CPT/HCPCS: 12002; 90471; 90714; 99283; L3908

== ENCOUNTER 2018-02-11 19:32 | Inpatient (IN) ==
[2018-02-11] MEDS ORDERED: Acetaminophen 325 MG Tablet PO ONE (21:02)
[2018-02-11] MEDS ORDERED: Sod Chloride 0.9% Inj 2,000 ML IV.SIG ONE (21:02)
[2018-02-11] MEDS ORDERED: Lidocaine PF 1% Inj 30 ML Vial INFILTRATN ONE (21:11)
--- NOTE | 2018-02-11 21:18 | ED ---
HPI General Chief complaint: Skin/Abscess/Foreign Body Stated complaint: skin/vomitting Time Seen by Provider: 02/11/18 21:02 Source: patient Mode of arrival: other Limitations: no limitations History of Present Illness HPI narrative: 27-year-old male presents the ED for evaluation of 4-day history of painful reddened area under the left axilla. Pain is rated 10/10, worsened by ROM. The patient can identify no acute injury to the area. 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 He endorses shaking chills with alternating sweats and mild nausea times 2 days. His grandmother is at bedside and states that she poured peroxide over the area yesterday with no improvement of symptoms. Patient states that the area under the arm burst today and purulent drainage and blood was produced. Related Data Allergies Allergy/AdvReac Type Severity Reaction Status Date / Time No Known Allergies Allergy Verified 02/11/18 20:22 Review of Systems ROS: all other systems reviewed are negative PMFSH Medical History Medical History Cerebral palsy (Acute) Hamstring tightness (Acute) Family History Family History Other Diabetes mellitus Social History Social History Substance History: Past History Smoking Status: Never smoker How Often Do You Have a Drink Containing Alcohol: Never Immunization History Tetanus Immunization: <5 Years Tetanus Immunization Year if Known: 2016 Hx Influenza Vaccine This Season: No Exam Narrative Exam Narrative: GENERAL: Well-nourished, ill-appearing white male in no acute distress. SKIN: Focused skin assessment warm/dry. SKIN: There is an indurated area in the left axilla which measures about 10-11 cm in diameter. It is fluctuant but there is no pointing or drainage. There is a wide zone of inflammation which extends to the chest and tender axillary lymphadenopathy. HEAD: Atraumatic. Normocephalic. EYES: Pupils equal and round. No scleral icterus. No injection or drainage. ENT: No nasal bleeding or discharge. Mucous membranes pink and moist. NECK: Trachea midline. No JVD. CARDIOVASCULAR: Regular rate and rhythm. No murmur appreciated. RESPIRATORY: No accessory muscle use. Clear to auscultation. Breath sounds equal bilaterally. GASTROINTESTINAL: Abdomen soft, non-tender, nondistended. Hepatic and splenic margins not palpable. MUSCULOSKELETAL: No obvious deformities. No clubbing. No cyanosis. No edema. NEUROLOGICAL: Awake and alert. No obvious cranial nerve deficits. Motor grossly within normal limits. Normal speech. PSYCHIATRIC: Appropriate mood and affect; insight and judgment normal. Procedures Abscess I/D Site: other (Axilla) Side (if applicable): left Anesthetic used: lidocaine 1% Technique: incised with #11 blade Amount of fluid expressed (mL): 20 Irrigation: Yes Packing used?: iodoform Course Initial Documented Vital Signs Temperature 102.6 F H 02/11/18 20:16 Pulse Rate 127 H 02/11/18 20:16 Respiratory Rate 18 02/11/18 20:16 Blood Pressure 139/74 02/11/18 20:16 Pulse Oximetry 98 02/11/18 20:16 Last Documented Vital Signs Temperature 100.8 F H 02/11/18 22:39 Pulse Rate 110 H 02/12/18 01:00 Respiratory Rate 20 02/12/18 01:00 Blood Pressure 117/67 02/12/18 01:00 Pulse Oximetry 95 02/11/18 22:39 Medical Decision Making SHALA Attestation SHALA supervised visit: Yes Attestation: I was present with the advanced practitioner during the management of this patient. I discussed the case with the advanced practitioner and agree with the findings and plan as documented in their note except as noted below. 27yM presenting with left axillary abscess. He has a history of CP and MRSA. He is tachycardic and febrile, with leukocytosis (no reported bands). Area incised and drained by PA. Covered with broad-spectrum antibiotics, IV fluids, and to be admitted for sepsis. MDM Narrative Medical decision making narrative: 27-year-old male with PMH of CP, MRSA presents the ED for evaluation of 4 day history of abscess of the left axilla. Patient temp 102.6, pulse 120, BP 142/79 on presentation. His occult exam consistent with abscess with extended cellulitic changes over the chest. Sepsis fluid resuscitation was initiated. Patient was administered 650 mg Tylenol. CBC with leukocytosis of 15.4, neutrophil predominant. Lactic acid 1.4. I&D was performed. Please see my procedure note for details. I reviewed the patient's records, previous blood cultures grew MRSA, resistant to vancomycin. Cefepime and vancomycin was administered. Temp 100.8, pulse 110 on recheck. Plan to admit to medicine. Patient's agreeable to this plan. I spoke with Dr. Basilio who agrees to accept the patient to the medicine service. Please see medicine notes for disposition. Differential Diagnosis Differential Diagnosis: Abscess versus cellulitis versus sepsis versus other Lab Data Lab results reviewed: Yes I reviewed the patient's lab results. Result diagrams: 02/11/18 21:10 02/11/18 21:10 Lab Results 02/11/18 02/11/18 02/11/18 Range/Units 21:10 21:10 21:10 WBC 15.4 H (4.0-11.0) th/mm3 RBC 5.42 (4.50-5.90) mil/mm3 Hgb 16.3 (13.0-17.0) gm/dL Hct 46.9 (39.0-51.0) % MCV 86.5 (80.0-100.0) fL MCH 30.1 (27.0-34.0) pg MCHC 34.8 (32.0-36.0) % RDW 13.0 (11.6-17.2) % Plt Count 89 L (150-450) th/mm3 MPV 10.7 (7.0-11.0) fL Prelim Diff (Auto) Slide review pending Neut % (Auto) 81.7 H (16.0-70.0) % Lymph % (Auto) 5.7 L (9.0-44.0) % [place] % (Auto) 12.1 H (0.0-8.0) % Eos % (Auto) 0.3 (0.0-4.0) % Baso % (Auto) 0.2 (0.0-2.0) % Neut # (Auto) 12.6 H (1.8-7.7) th/mm3 Lymph # (Auto) 0.9 L (1.0-4.8) th/mm3 [place] # (Auto) 1.9 H (0.0-0.9) th/mm3 Eos # (Auto) 0.0 (0.0-0.4) th/mm3 Baso # (Auto) 0.0 (0.0-0.2) th/mm3 WBC Differential . Diff Scan Auto diff confirmed Differential Comment . Platelet Estimate Low L (Normal) Platelet Morphology Normal (Normal) RBC Morphology Normal (Normal) Sodium 136 (136-145) meq/L Potassium 3.9 (3.5-5.1) meq/L Chloride 98 (98-107) meq/L Carbon Dioxide 28.4 (21.0-32.0) meq/L Anion Gap 10 (5-15) meq/L BUN 14 (7-18) mg/dL Creatinine 1.09 (0.60-1.30) mg/dL Estimated GFR 82 L (>89) mL/min Random Glucose 92 (74-106) mg/dL Lactic Acid 1.4 (0.4-2.0) mmol/L Calcium 8.5 (8.5-10.1) mg/dL Total Bilirubin 1.5 H (0.2-1.0) mg/dL AST 16 (15-37) U/L ALT 21 (12-78) U/L Alkaline Phosphatase 67 (45-117) U/L Total Protein 7.8 (6.4-8.2) g/dL Albumin 3.6 (3.4-5.0) g/dL Imaging Data Radiologist's impression: Chest X-Ray 02/11/18 21:02 CONCLUSION: No evidence of acute cardiopulmonary disease. Discharge Plan Discharge Disposition Patient Disposition: 30 Still Patient Discharge Details Diagnosis: Abscess or cellulitis of chest wall, Sepsis Physicians Team ED Provider: Miranda Waldron ED Midlevel Provider: Bridgett Cardenas Primary Care Provider: Julien Pena Attending Provider: Priscila Basilio Status ED Status: Admitted Patient
--- NOTE | 2018-02-11 21:36 | XR ---
EXAM DATE: 02/11/2018 9:33 PM EDT AGE/SEX: 27 years / Male INDICATIONS: Fever. Patient states abcess on left side of chest under arm. CLINICAL DATA: This is the patient's initial encounter. Patient reports that signs and symptoms have been present for 1 day and indicates a pain score of 6/10. MEDICAL/SURGICAL HISTORY: None. None. COMPARISON: [facility] – [place], CHEST PA & LAT, 06/18/2016. . FINDINGS: A single AP view of the chest demonstrates the lungs to be symmetrically aerated without evidence of mass, infiltrate or effusion. The cardiomediastinal contours are unremarkable. Osseous structures a re intact. CONCLUSION: No evidence of acute cardiopulmonary disease. Electronically signed by: Julien Nair MD 02/11/2018 9:35 PM EDT
[2018-02-11 21:41] LABS: Baso % (Auto) 0.2 % (0.0-2.0); Eos % (Auto) 0.3 % (0.0-4.0); Hematocrit 46.9 % (39.0-51.0); Hemoglobin 16.3 gm/dL (13.0-17.0); Lymph # (Auto) 0.9 th/mm3 (1.0-4.8); Lymph % (Auto) 5.7 % (9.0-44.0); Mean Corpuscular HGB Conc 34.8 % (32.0-36.0); Mean Corpuscular Hemoglobin 30.1 pg (27.0-34.0); Mean Corpuscular Volume 86.5 fL (80.0-100.0); Mean Platelet Volume 10.7 fL (7.0-11.0); Mono # (Auto) 1.9 th/mm3 (0.0-0.9); Mono % (Auto) 12.1 % (0.0-8.0); Neut # (Auto) 12.6 th/mm3 (1.8-7.7); Neut % (Auto) 81.7 % (16.0-70.0); Platelet Count 89 th/mm3 (150-450); Red Blood Count 5.42 mil/mm3 (4.50-5.90); White Blood Count 15.4 th/mm3 (4.0-11.0)
[2018-02-11 22:05] LABS: Albumin 3.6 g/dL (3.4-5.0); Anion Gap 10 meq/L (5-15); Aspartate Aminotransferase 16 U/L (15-37); Blood Urea Nitrogen 14 mg/dL (7-18); Calcium 8.5 mg/dL (8.5-10.1); Carbon Dioxide 28.4 meq/L (21.0-32.0); Chloride 98 meq/L (98-107); Glomerular Filtration Rate 82 mL/min (>89); Glucose,Random 92 mg/dL (74-106); Potassium 3.9 meq/L (3.5-5.1); Sodium 136 meq/L (136-145)
[2018-02-11 22:09] LABS: Alanine Aminotransferase 21 U/L (12-78); Alkaline Phosphatase 67 U/L (45-117); Total Protein 7.8 g/dL (6.4-8.2)
[2018-02-11] MEDS ORDERED: Vancomycin Inj 1 GM/200 ML PIGGYBACK IV.SIG ONE (22:14)
[2018-02-11 22:20] LABS: Platelet Morphology Normal (Normal); RBC Morphology Normal (Normal)
[2018-02-11] MEDS ORDERED: Vancomycin Inj 1,000 MG in Sodium Chlor 0.9% Inj 250 ML IV.SIG ONE (22:30)
[2018-02-11] MEDS ORDERED: Temazepam 15 MG Capsule PO PRN (23:22)
[2018-02-11] MEDS ORDERED: Bisacodyl 10 MG Supp RECTAL PRN (23:22)
[2018-02-11] MEDS ORDERED: Vancomycin Consult Pharmacy 1 EACH OTHER SCH (23:45)
[2018-02-12] MEDS ORDERED: Vancomycin Inj 1,250 MG in Sodium Chlor 0.9% Inj 250 ML IV.SIG SCH ×2
--- NOTE | 2018-02-12 | P.HP ---
History of Present Illness Service: [facility] Primary Care Physician: Julien Pena MD History of Present Illness: 27-year-old male with a past medical history significant for cerebral palsy and multiple MRSA skin infections presents the emergency department for evaluation of the left axillary abscess. Reports the symptoms began approximately 3 days ago. He endorses positive fevers and chills with associated nausea and vomiting. The patient denies any trauma to the area. The patient reports that the area under the arm burst today and purulent drainage was produced. An I&D was performed in the emergency department. Review of Systems Denies fever or chills Denies blurry vision, otorrhea, rhinorrhea Denies sore throat and cough No chest pain, palpitations No shortness of breath or wheezing No abdominal pain Denies constipation/diarrhea/nausea/vomiting Denies muscle pain Denies focal weakness PMFSH - History History Provided By: Patient - Medical History Medical History: Medical History (Last Updated 02/11/18 @ 20:20 by Priscila Rocha) Cerebral palsy (Acute) Hamstring tightness - Family History Family History: Family History (Last Updated 02/11/18 @ 23:56 by Priscila Basilio MD) Other Diabetes mellitus - Tobacco History Smoking Status: Never smoker - Alcohol History How Often Do You Have a Drink Containing Alcohol: Never - Substance Use History Substance History: Past History - Immunization History Tetanus Immunization: <5 Years Tetanus Immunization Year if Known: 2016 Hx Influenza Vaccine This Season: No Medications and Allergies Active Medications: Active Medications Al Hydroxide/Mg Hydroxide (Milk Of Magnesia Liq) 30 ml PO Q12H PRN PRN Reason: Mild Constipation Bisacodyl (Dulcolax Supp) 10 mg RECTAL DAILY PRN PRN Reason: SEVERE CONSITIPATION Sodium Chloride (Ns Inj) 1,000 mls @ 125 mls/hr IV.CONT .Q8H SALAS Cefepime HCl 2,000 mg/ Sodium (Chloride) 100 mls @ 200 mls/hr IV.SIG Q12H SALAS Pharmacy Profile Note (Vancomycin Consult Pharmacy) 0 mls @ 0 mls/hr OTHER UNSCH SALAS Vancomycin HCl 1,250 mg/ (Sodium Chloride) 262.5 mls @ 250 mls/hr IV.SIG Q8H SALAS Lactulose (Lactulose Liq) 30 ml PO DAILY PRN PRN Reason: SEVERE CONSITIPATION Miscellaneous Information ([facility] [place] [facility] Ordered Lab Info) 1 each OTHER ONCE ONE Stop: 02/13/18 07:46 Ondansetron HCl (Zofran Inj) 4 mg IV.PUSH Q6H PRN PRN Reason: NAUSEA OR VOMITING Last Admin: 02/11/18 23:42 Dose: 4 mg Oxycodone/Acetaminophen (Percocet 5/325 Mg) 1 tab PO Q4H PRN PRN Reason: pain 6-10 Senna/Docusate Sodium (Marina-Colace) 1 tab PO BID SALAS Sennosides (Senokot) 17.2 mg PO Q12H PRN PRN Reason: Moderate Constipation Temazepam (Restoril) 15 mg PO HS PRN PRN Reason: INSOMNIA Allergies Allergy/AdvReac Type Severity Reaction Status Date / Time No Known Allergies Allergy Verified 02/11/18 20:22 Exam Vital signs: Vital Signs 02/11/18 20:16 02/11/18 20:38 02/11/18 21:02 Temperature 102.6 F H Pulse Rate 127 H 120 H Respiratory Rate 18 18 Blood Pressure 139/74 142/79 H Pulse Oximetry 98 98 99 02/11/18 22:39 Temperature 100.8 F H Pulse Rate 115 H Respiratory Rate 18 Blood Pressure 117/59 L Pulse Oximetry 95 Intake & Output 02/11/18 02/11/18 02/12/18 06:59 18:59 06:59 Weight 81.647 kg Narrative: Gen.: No acute distress Head: Normocephalic. Atraumatic. EENT: Pupils equal round and reactive to light. Nose without drainage. Airway intact. Throat without injection. Cardiovascular: Regular rate and rhythm. No murmurs, rubs or gallops. Respiratory: Lungs clear to auscultation bilaterally. No wheezes or rhonchi. Abdomen: Soft, nontender, nondistended. No peritoneal signs. Musculoskeletal: No gross deformities. No edema. Skin: Area of induration and erythema in the left axilla that is status post incision and drainage. There is a mild amount of purulent drainage on the bandage. Erythema extends to the chest and down the dorsal aspect of the left arm. Neuro: Sensory and motor grossly intact. Cranial nerves II through XII grossly intact. Psych: Appropriate mood and affect Results - Labs CBC & Chem 7: 02/11/18 21:10 02/11/18 21:10 Labs: Laboratory Results - last 24 hr 02/11/18 02/11/18 02/11/18 21:10 21:10 21:10 WBC 15.4 H RBC 5.42 Hgb 16.3 Hct 46.9 MCV 86.5 MCH 30.1 MCHC 34.8 RDW 13.0 Plt Count 89 L MPV 10.7 Prelim Diff (Auto) Slide review pending Neut % (Auto) 81.7 H Lymph % (Auto) 5.7 L [place] % (Auto) 12.1 H Eos % (Auto) 0.3 Baso % (Auto) 0.2 Neut # (Auto) 12.6 H Lymph # (Auto) 0.9 L [place] # (Auto) 1.9 H Eos # (Auto) 0.0 Baso # (Auto) 0.0 WBC Differential . Diff Scan Auto diff confirmed Differential Comment . Platelet Estimate Low L Platelet Morphology Normal RBC Morphology Normal Sodium 136 Potassium 3.9 Chloride 98 Carbon Dioxide 28.4 Anion Gap 10 BUN 14 Creatinine 1.09 Estimated GFR 82 L Random Glucose 92 Lactic Acid 1.4 Calcium 8.5 Total Bilirubin 1.5 H AST 16 ALT 21 Alkaline Phosphatase 67 Total Protein 7.8 Albumin 3.6 - Imaging Impressions Chest X-Ray 02/11/18 21:02 CONCLUSION: No evidence of acute cardiopulmonary disease. Caprini VTE Risk Assessment Caprini VTE Risk Assessment: Moderate/High Risk (score >= 2) Caprini Risk Assessment Model: Point Value = 1 Point Value = 2 Point Value = 3 Point Value = 5 Age 41-60 Minor surgery BMI > 25 kg/m2 Swollen legs Varicose veins or History of unexplained or recurrent spontaneous Oral contraceptives or hormone replacement Sepsis (< 1 month) Serious lung disease, including pneumonia (< 1 month) Abnormal pulmonary function Acute myocardial infarction Congestive heart failure (< 1 month) History of inflammatory bowel disease Medical patient at bed rest Age 61-74 Arthroscopic surgery Major open surgery (> 45 min) Laparoscopic surgery (> 45 min) Malignancy Confined to bed (> 72 hours) Immobilizing plaster cast Central venous access Age >= 75 History of VTE Family history of VTE Factor V Leiden Prothrombin [id number] Lupus anticoagulant Anticardiolipin antibodies Elevated serum homocysteine Heparin-induced thrombocytopenia Other congenital or acquired thrombophilia Stroke (< 1 month) Elective arthroplasty Hip, pelvis, or leg fracture Acute spinal cord injury (< 1 month) Prophylaxis Regimen: Total Risk Factor Score Risk Level Prophylaxis Regimen 0-1 Low Early ambulation 2 Moderate Order ONE of the following: *Sequential Compression Device (SCD) *Heparin 5000 units SQ BID 3-4 Higher Order ONE of the following medications: *Heparin 5000 units SQ TID *Enoxaparin/Lovenox 40 mg SQ daily (WT < 150 kg, CrCl > 30 mL/min) *Enoxaparin/Lovenox 30 mg SQ daily (WT < 150 kg, CrCl > 10-29 mL/min) *Enoxaparin/Lovenox 30 mg SQ BID (WT < 150 kg, CrCl > 30 mL/min) AND/OR *Sequential Compression Device (SCD) 5 or more Highest Order ONE of the following medications: *Heparin 5000 units SQ TID (Preferred with Epidurals) *Enoxaparin/Lovenox 40 mg SQ daily (WT < 150 kg, CrCl > 30 mL/min) *Enoxaparin/Lovenox 30 mg SQ daily (WT < 150 kg, CrCl > 10-29 mL/min) *Enoxaparin/Lovenox 30 mg SQ BID (WT < 150 kg, CrCl > 30 mL/min) AND *Sequential Compression Device (SCD) Assessment and Plan - Plan Assessment/plan: 1. Left axillary abscess/history of MRSA infections/sepsis Patient with leukocytosis, fever and tachycardia Previous cultures showed MRSA resistant to Zosyn Cefepime and vancomycin Blood cultures pending Wound cultures pending Tailor antibiotics once sensitivities result 2. Cerebral palsy Patient reports he uses a wheelchair and a walker FEN Regular diet Electrolytes: Monitor and replete as needed NS at 1 25 cc/hour
[2018-02-12 03:27] LABS: Bilirubin,Urine Small (Negative); Clarity,Urine Hazy (Clear); Color,Urine Amber (Yellw/Straw); Glucose,Urine (UA) Negative (Negative); Leukocyte Esterase,Urine Negative (Negative); Mucus,Urine Few /lpf (Occasional); Nitrite,Urine Negative (Negative); Specific Gravity,Urine 1.031 (1.002-1.035); Squamous Epithelial Cell,Urine <1 /hpf (0-5); Urobilinogen,Urine 4 or Greater mg/dL (Less than 2)
[2018-02-12] MEDS: Sod Chloride 0.9% Inj 1,000 ML IV.CONT SCH ×3 (03:31→16:47)
[2018-02-12] MEDS: Vancomycin Inj 1,250 MG in Sodium Chlor 0.9% Inj 250 ML IV.SIG SCH ×3 (04:20→21:30)
[2018-02-12] MEDS: Senna/Docusate Sodium 8.6/50 MG Tablet PO SCH ×2 (08:45→21:30)
[2018-02-12] MEDS: Acetaminophen 325 MG Tablet PO PRN ×2 (11:17→16:43)
[2018-02-12 12:29] LABS: Baso % (Auto) 0.1 % (0.0-2.0); Hematocrit 40.5 % (39.0-51.0); Lymph # (Auto) 0.7 th/mm3 (1.0-4.8); Lymph % (Auto) 4.3 % (9.0-44.0); Mean Corpuscular HGB Conc 34.6 % (32.0-36.0); Mean Corpuscular Hemoglobin 29.9 pg (27.0-34.0); Mean Corpuscular Volume 86.3 fL (80.0-100.0); Mean Platelet Volume 10.2 fL (7.0-11.0); Mono # (Auto) 1.9 th/mm3 (0.0-0.9); Mono % (Auto) 12.5 % (0.0-8.0); Neut # (Auto) 12.6 th/mm3 (1.8-7.7); Neut % (Auto) 83.1 % (16.0-70.0); Platelet Count 81 th/mm3 (150-450); Red Cell Distribution Width 12.7 % (11.6-17.2); White Blood Count 15.2 th/mm3 (4.0-11.0)
[2018-02-12 12:55] LABS: Anion Gap 7 meq/L (5-15); Blood Urea Nitrogen 9 mg/dL (7-18); Calcium 7.5 mg/dL (8.5-10.1); Carbon Dioxide 25.1 meq/L (21.0-32.0); Chloride 105 meq/L (98-107); Glomerular Filtration Rate Greater Than 89 mL/min (>89); Glucose,Random 120 mg/dL (74-106); Potassium 3.5 meq/L (3.5-5.1); Sodium 137 meq/L (136-145)
[2018-02-12 13:04] LABS: Lymphocytes 5 % (9-44); Monocytes 10 % (0-8); Platelet Morphology Normal (Normal)
--- NOTE | 2018-02-12 15:19 | P.PN ---
Subjective Interval history: Follow-up for left axillary abscess. Patient reports improvement of his left axillary pain and swelling. He denies any significant drainage, currently covered with dressing. The patient is an unreliable historian, reports no fever /chills, however documented fevers with T-max of 103.2 this morning. He denies any other medical complaints including no headache, chest pain, shortness of breath, or abdominal complaints. He is tolerating oral intake. Physical Exam Vital signs: Vital Signs 02/11/18 20:16 02/11/18 20:38 02/11/18 21:02 Temperature 102.6 F H Pulse Rate 127 H 120 H Respiratory Rate 18 18 Blood Pressure 139/74 142/79 H Pulse Oximetry 98 98 99 02/11/18 22:39 02/11/18 23:30 02/12/18 00:30 Temperature 100.8 F H Pulse Rate 115 H 121 H 106 H Respiratory Rate 18 20 20 Blood Pressure 117/59 L 121/71 123/64 Pulse Oximetry 95 02/12/18 01:00 02/12/18 03:30 02/12/18 08:00 Temperature 100.2 F H 103.2 F H Pulse Rate 110 H 113 H 127 H Respiratory Rate 20 20 16 Blood Pressure 117/67 118/64 125/73 Pulse Oximetry 97 94 L 02/12/18 12:00 Temperature 101.8 F H Pulse Rate 123 H Respiratory Rate 16 Blood Pressure 115/56 L Pulse Oximetry 93 L Intake & Output 02/11/18 02/12/18 02/12/18 18:59 06:59 18:59 Intake Total 2842.5 / 2842.5 Balance 2842.5 / 2842.5 Weight 81.6 kg Intake: IV 2362.5 / 2362.5 Maxipime Inj 1,000 MG In NS Inj 100 / 100 100 ML @ 200 mls/hr IV.SIG ONCE ONE Rx#:[id number] NS Inj 2,000 ML @ Wide Open IV. 1999 / 1999 SIG BOLUS ONE Rx#:[id number] Vancomycin Inj 1,250 MG In NS 262.5 / 262.5 Inj 250 ML @ 250 mls/hr IV.SIG Q8H SALAS Rx#:[id number] Oral 480 / 480 Other: # Voids 1 Date of Last Bowel Movement 02/11/18 Weight On Admission 81.6 kg Narrative: GENERAL: Well-nourished, well-developed young male patient in NAD. SKIN: Warm and dry. No rash. HEENT: Normocephalic. Atraumatic. Pupils equal and round. Mucous membranes pink and moist. NECK: Supple. Trachea midline. CARDIOVASCULAR: Tachycardic, regular rhythm. No murmur appreciated. RESPIRATORY: No accessory muscle use. Clear to auscultation. Breath sounds equal bilaterally. GASTROINTESTINAL: Abdomen soft, non-tender, nondistended. Normoactive bowel sounds x4. MUSCULOSKELETAL: No obvious deformities. Extremities without clubbing, cyanosis , or edema. Left lower axillary region with induration/erythema/abscess s/p I&D with some drainage on dressing. NEUROLOGICAL: Awake and alert. No obvious cranial nerve deficits. Motor grossly within normal limits. Moving all extremities spontaneously. Normal speech. PSYCHIATRIC: Appropriate mood and affect; insight and judgment limited. Results - Labs CBC & Chem 7: 02/12/18 11:59 02/12/18 11:59 Laboratory Results - last 24 hr 02/11/18 02/11/18 02/11/18 21:10 21:10 21:10 WBC 15.4 H RBC 5.42 Hgb 16.3 Hct 46.9 MCV 86.5 MCH 30.1 MCHC 34.8 RDW 13.0 Plt Count 89 L MPV 10.7 Prelim Diff (Auto) Slide review pending Neut % (Auto) 81.7 H Lymph % (Auto) 5.7 L [place] % (Auto) 12.1 H Eos % (Auto) 0.3 Baso % (Auto) 0.2 Neut # (Auto) 12.6 H Lymph # (Auto) 0.9 L [place] # (Auto) 1.9 H Eos # (Auto) 0.0 Baso # (Auto) 0.0 WBC Differential . Diff Scan Auto diff confirmed Seg Neuts % (Manual) Band Neuts % (Manual) Lymphocytes % (Manual) Monocytes % (Manual) Basophils % (Manual) Abs Neuts (Manual) Differential Comment . Platelet Estimate Low L Platelet Morphology Normal RBC Morphology Normal Sodium 136 Potassium 3.9 Chloride 98 Carbon Dioxide 28.4 Anion Gap 10 BUN 14 Creatinine 1.09 Estimated GFR 82 L Random Glucose 92 Lactic Acid 1.4 Calcium 8.5 Total Bilirubin 1.5 H AST 16 ALT 21 Alkaline Phosphatase 67 Total Protein 7.8 Albumin 3.6 Urine Color Urine Clarity Urine pH Ur Specific [place] Urine Protein Urine Glucose (UA) Urine Ketones Urine Occult Blood Urine Nitrate Urine Bilirubin Urine Urobilinogen Ur Leukocyte Esterase Urine RBC Urine WBC Ur Squamous Epith Cells Urine Mucus Micro UA Comment Urine Culture Comments 02/12/18 02/12/18 02/12/18 03:00 11:59 11:59 WBC 15.2 H RBC 4.70 Hgb 14.0 D Hct 40.5 MCV 86.3 MCH 29.9 MCHC 34.6 RDW 12.7 Plt Count 81 L MPV 10.2 Prelim Diff (Auto) Slide review pending Neut % (Auto) 83.1 H Lymph % (Auto) 4.3 L [place] % (Auto) 12.5 H Eos % (Auto) 0.0 Baso % (Auto) 0.1 Neut # (Auto) 12.6 H Lymph # (Auto) 0.7 L [place] # (Auto) 1.9 H Eos # (Auto) 0.0 Baso # (Auto) 0.0 WBC Differential Manual diff final Diff Scan Seg Neuts % (Manual) 66 Band Neuts % (Manual) 18 H Lymphocytes % (Manual) 5 L Monocytes % (Manual) 10 H Basophils % (Manual) 1 Abs Neuts (Manual) 12.8 H Differential Comment . Platelet Estimate Low L Platelet Morphology Normal RBC Morphology Sodium 137 Potassium 3.5 Chloride 105 Carbon Dioxide 25.1 Anion Gap 7 BUN 9 Creatinine 0.89 Estimated GFR Greater than 89 Random Glucose 120 H Lactic Acid Calcium 7.5 L D Total Bilirubin AST ALT Alkaline Phosphatase Total Protein Albumin Urine Color [place] Urine Clarity Hazy H Urine pH 5.0 Ur Specific [place] 1.031 Urine Protein 100 H Urine Glucose (UA) Negative Urine Ketones 20 Urine Occult Blood Negative Urine Nitrate Negative Urine Bilirubin Small H Urine Urobilinogen 4 or greater Ur Leukocyte Esterase Negative Urine RBC 3 Urine WBC 5 Ur Squamous Epith Cells <1 Urine Mucus Few H Micro UA Comment Culture not ind Urine Culture Comments Culture not ind Microbiology 02/11/18 21:10 Blood - Peripheral Aerobic Blood Culture - Preliminary No growth in 1 day 02/11/18 21:10 Blood - Peripheral Anaerobic Blood Culture - Preliminary No growth in 1 day 02/11/18 21:05 Blood - Peripheral Aerobic Blood Culture - Preliminary No growth in 1 day 02/11/18 21:05 Blood - Peripheral Anaerobic Blood Culture - Preliminary No growth in 1 day 02/12/18 03:00 Abscess - Axilla Gram Stain - Final - Imaging Impressions Chest X-Ray 02/11/18 21:02 CONCLUSION: No evidence of acute cardiopulmonary disease. Assessment and Plan - Plan 27-year-old male with a past medical history significant for cerebral palsy and multiple MRSA skin infections presents the emergency department for evaluation of the left axillary abscess. Sepsis with left axillary abscess: History of MRSA infections. Meets sepsis criteria with fever T-max 103.2, tachycardia heart rate 127, leukocytosis WBC 15 K, suspected sourceabscess. Lactic acid 1.4. -Status post I&D in the ED 02/11 -Continue antibiotics with IV cefepime and IV vancomycin -Pain control with Tylenol, Percocet as needed -Continue IV fluid hydration -Wound culture pending -Blood cultures with no growth to date -Monitor CBC Cerebral palsy: Chronic -Patient reports he uses a wheelchair and a walker DVT prophylaxis: Heparin sq
[2018-02-12] MEDS: Heparin - SQ 10,000 UNITS/ML Vial SQ SCH (21:30)
[2018-02-12] MEDS ORDERED: guaiFENesin/Dextromethorphan 200 MG/20 MG 10 ML UDC PO ONE (21:38)
[2018-02-13] MEDS: Sod Chloride 0.9% Inj 1,000 ML IV.CONT SCH ×4 (00:44→21:06)
[2018-02-13] MEDS: Acetaminophen 325 MG Tablet PO PRN ×2 (03:54→09:22)
[2018-02-13] MEDS: Vancomycin Inj 1,250 MG in Sodium Chlor 0.9% Inj 250 ML IV.SIG SCH ×3 (04:30→20:58)
[2018-02-13 05:42] LABS: Baso % (Auto) 0.3 % (0.0-2.0); Eos # (Auto) 0.1 th/mm3 (0.0-0.4); Eos % (Auto) 0.6 % (0.0-4.0); Hematocrit 37.9 % (39.0-51.0); Hemoglobin 13.2 gm/dL (13.0-17.0); Lymph # (Auto) 0.9 th/mm3 (1.0-4.8); Lymph % (Auto) 6.4 % (9.0-44.0); Mean Corpuscular HGB Conc 34.8 % (32.0-36.0); Mean Corpuscular Hemoglobin 30.2 pg (27.0-34.0); Mean Corpuscular Volume 86.8 fL (80.0-100.0); Mean Platelet Volume 11.2 fL (7.0-11.0); Mono # (Auto) 1.5 th/mm3 (0.0-0.9); Mono % (Auto) 9.9 % (0.0-8.0); Neut # (Auto) 12.3 th/mm3 (1.8-7.7); Neut % (Auto) 82.8 % (16.0-70.0); Platelet Count 84 th/mm3 (150-450); Red Blood Count 4.37 mil/mm3 (4.50-5.90); Red Cell Distribution Width 12.9 % (11.6-17.2); White Blood Count 14.8 th/mm3 (4.0-11.0)
[2018-02-13 06:09] LABS: Anion Gap 9 meq/L (5-15); Blood Urea Nitrogen 8 mg/dL (7-18); Calcium 7.5 mg/dL (8.5-10.1); Carbon Dioxide 23.7 meq/L (21.0-32.0); Chloride 107 meq/L (98-107); Glomerular Filtration Rate Greater Than 89 mL/min (>89); Glucose,Random 78 mg/dL (74-106); Potassium 3.6 meq/L (3.5-5.1); Sodium 140 meq/L (136-145)
[2018-02-13 07:32] LABS: Eosinophils 1 % (0-4); Lymphocytes 4 % (9-44); Monocytes 10 % (0-8); Platelet Morphology Normal (Normal)
[2018-02-13] MEDS ORDERED: Pharmacy Ordered Lab Info OTHER ONE (07:45)
[2018-02-13] MEDS: Senna/Docusate Sodium 8.6/50 MG Tablet PO SCH ×2 (09:22→10:21)
[2018-02-13] MEDS: Heparin - SQ 10,000 UNITS/ML Vial SQ SCH (09:22)
--- NOTE | 2018-02-13 11:17 | P.PN ---
Subjective Interval history: Follow-up for left axillary abscess. Patient seen on the bedside commode. He denies any significant left axillary pain. He has continued erythema and edema surrounding site of abscess that left axillary with active drainage. He denies any current fever or chills, however T-max 102.6 this morning. He does report cough occasionally productive of yellow sputum. Denies any chest pain or shortness of breath. Denies any other medical complaints at this time. Physical Exam Vital signs: Vital Signs 02/12/18 12:00 02/12/18 16:00 02/12/18 18:38 Temperature 101.8 F H 103 F H 99.8 F H Pulse Rate 123 H 115 H Respiratory Rate 16 16 Blood Pressure 115/56 L 120/62 Pulse Oximetry 93 L 02/12/18 20:00 02/12/18 23:23 02/13/18 03:51 Temperature 100.4 F H 98.6 F 102.6 F H Pulse Rate 109 H 105 H 108 H Respiratory Rate 18 16 18 Blood Pressure 132/77 114/61 127/68 Pulse Oximetry 97 98 98 02/13/18 05:08 02/13/18 07:27 02/13/18 11:05 Temperature 99.7 F H 100.3 F H 99.7 F H Pulse Rate 97 H 112 H Respiratory Rate 18 12 Blood Pressure 120/71 112/64 Pulse Oximetry 95 93 L Intake & Output 02/12/18 02/13/18 02/13/18 18:59 06:59 18:59 Intake Total 1362.5 / 1362.5 3105.0 / 3105.0 600 / 600 Output Total 350 / 350 850 / 850 500 / 500 Balance 1012.5 / 1012.5 2255.0 / 2255.0 100 / 100 Weight 81.6 kg Intake: IV 1362.5 / 1362.5 2625.0 / 2625.0 600 / 600 NS Inj 1,000 ML @ 125 mls/hr IV 1000 / 1000 2000 / 2000 500 / 500 .CONT .Q8H [facility] Rx#:[id number] Maxipime Inj 2,000 MG In NS Inj 100 / 100 100 / 100 100 / 100 100 ML @ 200 mls/hr IV.SIG Q12H [facility] Rx#:[id number] Vancomycin Inj 1,250 MG In NS 262.5 / 262.5 525.0 / 525.0 Inj 250 ML @ 250 mls/hr IV.SIG Q8H [facility] Rx#:[id number] Oral 480 / 480 Output: Urine 350 / 350 850 / 850 500 / 500 Other: Date of Last Bowel Movement 02/11/18 Narrative: GENERAL: Well-nourished, well-developed young male patient in [facility]. SKIN: Warm and dry. No rash. HEENT: Normocephalic. Atraumatic. Pupils equal and round. Mucous membranes pink and moist. CARDIOVASCULAR: Tachycardic, regular rhythm. No murmur appreciated. RESPIRATORY: No accessory muscle use. Diminished inspiratory effort, otherwise clear to auscultation. Breath sounds equal bilaterally. GASTROINTESTINAL: Abdomen soft, non-tender, nondistended. Normoactive bowel sounds x4. MUSCULOSKELETAL: No obvious deformities. Extremities without clubbing, cyanosis , or edema. Left axillary region with induration/erythema/abscess s/p I&D with some drainage on dressing. NEUROLOGICAL: Awake and alert. No obvious cranial nerve deficits. Motor grossly within normal limits. Moving all extremities spontaneously. Normal speech. PSYCHIATRIC: Appropriate mood and affect; insight and judgment limited. Results - Labs CBC & Chem 7: 02/13/18 04:10 02/13/18 04:10 Laboratory Results - last 24 hr 02/12/18 02/12/18 02/13/18 11:59 11:59 04:10 WBC 15.2 H 14.8 H RBC 4.70 4.37 L Hgb 14.0 D 13.2 Hct 40.5 37.9 L MCV 86.3 86.8 MCH 29.9 30.2 MCHC 34.6 34.8 RDW 12.7 12.9 Plt Count 81 L 84 L MPV 10.2 11.2 H Prelim Diff (Auto) Slide review pending Slide review pending Neut % (Auto) 83.1 H 82.8 H Lymph % (Auto) 4.3 L 6.4 L Tate % (Auto) 12.5 H 9.9 H Eos % (Auto) 0.0 0.6 Baso % (Auto) 0.1 0.3 Neut # (Auto) 12.6 H 12.3 H Lymph # (Auto) 0.7 L 0.9 L Tate # (Auto) 1.9 H 1.5 H Eos # (Auto) 0.0 0.1 Baso # (Auto) 0.0 0.0 WBC Differential Manual diff final Manual diff final Seg Neuts % (Manual) 66 81 H Band Neuts % (Manual) 18 H 4 Lymphocytes % (Manual) 5 L 4 L Monocytes % (Manual) 10 H 10 H Eosinophils % (Manual) 1 Basophils % (Manual) 1 Abs Neuts (Manual) 12.8 H 12.6 H Differential Comment . . Platelet Estimate Low L Low L Platelet Morphology Normal Normal Sodium 137 Potassium 3.5 Chloride 105 Carbon Dioxide 25.1 Anion Gap 7 BUN 9 Creatinine 0.89 Estimated GFR Greater than 89 Random Glucose 120 H Calcium 7.5 L D Vancomycin Trough 02/13/18 02/13/18 04:10 08:09 WBC RBC Hgb Hct MCV MCH MCHC RDW Plt Count MPV Prelim Diff (Auto) Neut % (Auto) Lymph % (Auto) Tate % (Auto) Eos % (Auto) Baso % (Auto) Neut # (Auto) Lymph # (Auto) Tate # (Auto) Eos # (Auto) Baso # (Auto) WBC Differential Seg Neuts % (Manual) Band Neuts % (Manual) Lymphocytes % (Manual) Monocytes % (Manual) Eosinophils % (Manual) Basophils % (Manual) Abs Neuts (Manual) Differential Comment Platelet Estimate Platelet Morphology Sodium 140 Potassium 3.6 Chloride 107 Carbon Dioxide 23.7 Anion Gap 9 BUN 8 Creatinine 0.77 Estimated GFR Greater than 89 Random Glucose 78 Calcium 7.5 L Vancomycin Trough 25.7 H Microbiology 02/11/18 21:10 Blood - Peripheral Aerobic Blood Culture - Preliminary No growth in 2 days 02/11/18 21:10 Blood - Peripheral Anaerobic Blood Culture - Preliminary No growth in 2 days 02/11/18 21:05 Blood - Peripheral Aerobic Blood Culture - Preliminary No growth in 2 days 02/11/18 21:05 Blood - Peripheral Anaerobic Blood Culture - Preliminary No growth in 2 days 02/12/18 03:00 Abscess - Axilla Gram Stain - Final - Imaging Chest X-Ray 02/11/18 21:02 CONCLUSION: No evidence of acute cardiopulmonary disease. Humerus CT 02/13/18 00:00 CONCLUSION: 1. Left axillary and chest wall cellulitis 2. Ill-defined fluid collections in the left axilla and left chest wall are characteristic of an inflammatory phlegmon/developing abscess. No discrete, well -defined fluid collections are identified at this time. Assessment and Plan - Plan 27-year-old male with a past medical history significant for cerebral palsy and multiple MRSA skin infections presents the emergency department for evaluation of the left axillary abscess. Sepsis with left axillary abscess: History of MRSA infections. Meets sepsis criteria with fever T-max 103.2, tachycardia heart rate 127, leukocytosis WBC 15 K, suspected sourceabscess. Lactic acid 1.4. -Status post I&D in the ED 02/11 -Continue antibiotics with IV cefepime and IV vancomycin -Pain control with Tylenol, Percocet as needed -Continue IV fluid hydration -Wound culture with MRSA -Blood cultures with no growth to date -Monitor CBC, leukocytosis minimally improved -Patient with intractable fevers, consulted infectious disease, appreciate assistance -General surgery consulted Acute Bronchitis: patient with cough productive of yellow sputum -CXR reviewed, no acute findings -Check sputum culture -On antibiotics as above -Robitussin prn cough -Monitor for improvement Cerebral palsy: Chronic -Patient reports he uses a wheelchair and a walker -PT consulted DVT prophylaxis: Heparin sq Discharge Planning: Discharge pending further clinical improvement. Still febrile. ID consult and General surgery consult pending.
--- NOTE | 2018-02-13 11:25 | P.CONID ---
History of Present Illness Service: Infectious Disease Consult date: 02/13/18 Requesting Physician: Diana Anand Reason for Consult: Evaluation and Mment of Sepsis and left axillary chest wall abscess. Primary Care Provider: Julien Pena MD History of Present Illness: is a 27 y/o CM with PMHx significant for Cerebral palsy and multiple MRSA skin infections. Patient presents the emergency department for evaluation of the left axillary abscess which per review of records appears to have started 3 days [employer] but patient is not a reliable historian for reasons stated above. He also developed fevers, chills, associated with nausea and vomiting. No reported trauma to the area. There was reportedly spontaneous eruption of the abscess and additionally he underwent I&D bedside in the ED. Patient underwent evaluation for sepsis workup and was started on empiric Cefepime IV and Vanco IV. Despite this regimen the patient continues to show signs of ongoing sepsis with persistent fevers, tachycardia and leucocytosis. Upon my evaluation in the ED patient had restricted movement at the left shoulder level due to pain. There was significant induration and pain noted. The area of induration appears to have spread beyond the line of demarcation. ID consulted for evaluation and Mment of Sepsis, Left axillary and left chest wall abscess, possible underlying infective myositis. 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 Route Used: Inhalation Frequency: NOT LATELY Reason for Use: Calm Down - Travel History Recent Travel in the [place] Within the Last 8 Weeks: No Recent Travel Out of the Country Within the Last 8 Weeks: No - Immunization History Tetanus Immunization: Unsure Tetanus Immunization Year if Known: 2016 Hx Influenza Vaccine This Season: No Medications and Allergies Active Medications: Active Medications Acetaminophen (Tylenol) 650 mg PO Q4H PRN PRN Reason: headache/fever/pain 1-4 Last Admin: 02/13/18 09:22 Dose: 650 mg Al Hydroxide/Mg Hydroxide (Milk Of Magnesia Liq) 30 ml PO Q12H PRN PRN Reason: Mild Constipation Bisacodyl (Dulcolax Supp) 10 mg RECTAL DAILY PRN PRN Reason: SEVERE CONSITIPATION Heparin Sodium (Porcine) (Heparin Inj) 5,000 units SQ Q12HR [facility] Last Admin: 02/13/18 09:22 Dose: 5,000 units Sodium Chloride (Ns Inj) 1,000 mls @ 125 mls/hr IV.CONT .Q8H [facility] Last Infusion: 02/13/18 09:19 Dose: 125 mls/hr Cefepime HCl 2,000 mg/ Sodium (Chloride) 100 mls @ 200 mls/hr IV.SIG Q12H [facility] Last Infusion: 02/13/18 10:14 Dose: Infused Pharmacy Profile Note (Vancomycin Consult Pharmacy) 0 mls @ 0 mls/hr OTHER UNSCH [facility] Vancomycin HCl 1,250 mg/ (Sodium Chloride) 262.5 mls @ 250 mls/hr IV.SIG Q8H [facility] Last Infusion: 02/13/18 05:35 Dose: Infused Clindamycin/Sodium Chloride (Cleocin 600 Mg/Ns Premix) 600 mg in 50 mls @ 100 mls/hr IV.SIG Q8H [facility] Lactulose (Lactulose Liq) 30 ml PO DAILY PRN PRN Reason: SEVERE CONSITIPATION Miscellaneous Information ([facility] Ordered Lab Info) 0 each OTHER ONCE ONE Stop: 02/14/18 03:46 Ondansetron HCl (Zofran Inj) 4 mg IV.PUSH Q6H PRN PRN Reason: NAUSEA OR VOMITING Last Admin: 02/12/18 21:32 Dose: 4 mg Oxycodone/Acetaminophen (Percocet 5/325 Mg) 1 tab PO Q4H PRN PRN Reason: pain 5-10 Last Admin: 02/12/18 21:30 Dose: 1 tab Senna/Docusate Sodium (Marina-Colace) 1 tab PO BID [facility] Last Admin: 02/13/18 10:21 Dose: Not Given Sennosides (Senokot) 17.2 mg PO Q12H PRN PRN Reason: Moderate Constipation Temazepam (Restoril) 15 mg PO HS PRN PRN Reason: INSOMNIA Allergies Allergy/AdvReac Type Severity Reaction Status Date / Time No Known Allergies Allergy Verified 02/11/18 20:22 Home Medications Medication Instructions Recorded Confirmed Type hydrocodone-acetaminophen [[place]] 1 tab PO Q4H PRN 02/12/18 02/12/18 History Exam Vital signs: Vital Signs 02/12/18 12:00 02/12/18 16:00 02/12/18 18:38 Temperature 101.8 F H 103 F H 99.8 F H Pulse Rate 123 H 115 H Respiratory Rate 16 16 Blood Pressure 115/56 L 120/62 Pulse Oximetry 93 L 02/12/18 20:00 02/12/18 23:23 02/13/18 03:51 Temperature 100.4 F H 98.6 F 102.6 F H Pulse Rate 109 H 105 H 108 H Respiratory Rate 18 16 18 Blood Pressure 132/77 114/61 127/68 Pulse Oximetry 97 98 98 02/13/18 05:08 02/13/18 07:27 02/13/18 11:05 Temperature 99.7 F H 100.3 F H 99.7 F H Pulse Rate 97 H 112 H Respiratory Rate 18 12 Blood Pressure 120/71 112/64 Pulse Oximetry 95 93 L Intake & Output 02/12/18 02/13/18 02/13/18 18:59 06:59 18:59 Intake Total 1362.5 / 1362.5 3105.0 / 3105.0 600 / 600 Output Total 350 / 350 850 / 850 500 / 500 Balance 1012.5 / 1012.5 2255.0 / 2255.0 100 / 100 Weight 81.6 kg Intake: IV 1362.5 / 1362.5 2625.0 / 2625.0 600 / 600 NS Inj 1,000 ML @ 125 mls/hr IV 1000 / 1000 2000 / 2000 500 / 500 .CONT .Q8H [facility] Rx#:[id number] Maxipime Inj 2,000 MG In NS Inj 100 / 100 100 / 100 100 / 100 100 ML @ 200 mls/hr IV.SIG Q12H [facility] Rx#:[id number] Vancomycin Inj 1,250 MG In NS 262.5 / 262.5 525.0 / 525.0 Inj 250 ML @ 250 mls/hr IV.SIG Q8H [facility] Rx#:[id number] Oral 480 / 480 Output: Urine 350 / 350 850 / 850 500 / 500 Other: Date of Last Bowel Movement 02/11/18 Narrative: GENERAL: Well-nourished well-developed, not in acute distress SKIN: Cool and dry, no generalized rash HEAD: Atraumatic. Normocephalic. No temporal or scalp tenderness. EYES: Pupils equal round and reactive. Scleral icterus. No injection or drainage. No petechia ENT: Nothing abnormal detected NECK: Trachea midline. Supple, nontender, no meningeal signs. CARDIOVASCULAR: HS audible. RESPIRATORY: Clear to auscultation bilaterally. GASTROINTESTINAL: Abdomen soft nontender. MUSCULOSKELETAL: Left axilla with significant area of induration, area of erythema extends beyond the line of demarcation. Significant pain and tenderness with Reduced range of motion noted at left shoulder level. NEUROLOGICAL: Alert oriented 3. Psych cooperative IV line sites ok. Results - Labs CBC & Chem 7: 02/13/18 04:10 02/13/18 04:10 Labs: Laboratory Results - last 24 hr 02/12/18 02/12/18 02/13/18 11:59 11:59 04:10 WBC 15.2 H 14.8 H RBC 4.70 4.37 L Hgb 14.0 D 13.2 Hct 40.5 37.9 L MCV 86.3 86.8 MCH 29.9 30.2 MCHC 34.6 34.8 RDW 12.7 12.9 Plt Count 81 L 84 L MPV 10.2 11.2 H Prelim Diff (Auto) Slide review pending Slide review pending Neut % (Auto) 83.1 H 82.8 H Lymph % (Auto) 4.3 L 6.4 L Potter % (Auto) 12.5 H 9.9 H Eos % (Auto) 0.0 0.6 Baso % (Auto) 0.1 0.3 Neut # (Auto) 12.6 H 12.3 H Lymph # (Auto) 0.7 L 0.9 L Potter # (Auto) 1.9 H 1.5 H Eos # (Auto) 0.0 0.1 Baso # (Auto) 0.0 0.0 WBC Differential Manual diff final Manual diff final Seg Neuts % (Manual) 66 81 H Band Neuts % (Manual) 18 H 4 Lymphocytes % (Manual) 5 L 4 L Monocytes % (Manual) 10 H 10 H Eosinophils % (Manual) 1 Basophils % (Manual) 1 Abs Neuts (Manual) 12.8 H 12.6 H Differential Comment . . Platelet Estimate Low L Low L Platelet Morphology Normal Normal Sodium 137 Potassium 3.5 Chloride 105 Carbon Dioxide 25.1 Anion Gap 7 BUN 9 Creatinine 0.89 Estimated GFR Greater than 89 Random Glucose 120 H Calcium 7.5 L D Vancomycin Trough 02/13/18 02/13/18 04:10 08:09 WBC RBC Hgb Hct MCV MCH MCHC RDW Plt Count MPV Prelim Diff (Auto) Neut % (Auto) Lymph % (Auto) Potter % (Auto) Eos % (Auto) Baso % (Auto) Neut # (Auto) Lymph # (Auto) Potter # (Auto) Eos # (Auto) Baso # (Auto) WBC Differential Seg Neuts % (Manual) Band Neuts % (Manual) Lymphocytes % (Manual) Monocytes % (Manual) Eosinophils % (Manual) Basophils % (Manual) Abs Neuts (Manual) Differential Comment Platelet Estimate Platelet Morphology Sodium 140 Potassium 3.6 Chloride 107 Carbon Dioxide 23.7 Anion Gap 9 BUN 8 Creatinine 0.77 Estimated GFR Greater than 89 Random Glucose 78 Calcium 7.5 L Vancomycin Trough 25.7 H - Imaging Chest X-Ray 02/11/18 21:02 CONCLUSION: No evidence of acute cardiopulmonary disease. Assessment and Plan - Plan Sepsis present on admission Left axillary abscess and possible left lateral chest wall area abscess. Possible underlying infective myositis. Necrotizing fascitis as possibility. Cerebral palsy Recs Continue Cefepime IV Continue Vanco IV (target 10-15 if bacteremia then 15-20) Start Clindamycin IV (for anaerobes and toxin neutralization effect) CT left humerus to include chest wall to look for e/o gas or abscess. General surgery consult likely needs surgical exploration and debridement given induration. sandi Ortiz. sandi Olivier plan for surgical debridement today. Follow cultures Follow clinically. No family in room.
[2018-02-13] MEDS ORDERED: Ketorolac Inj 30 MG/ML (IVP) Vial IV.PUSH ONE (12:00)
[2018-02-13] MEDS ORDERED: Phenylephrine/NS 1000 MCG/10ML Syringe IV.PUSH ONE (12:00)
[2018-02-13] MEDS ORDERED: Lidocaine PF 1% Inj 5 ML Syringe INFILTRATN ONE (12:00)
--- NOTE | 2018-02-13 12:14 | P.CONGS ---
[facility] Gen Surgery Consult Note Consult date: 02/13/18 Reason for consult: other (LEFT axillary abscess) Requesting physician: Ana Conley Narrative: This is a 27-year-old male with a past medical history of cerebral palsy and several MRSA skin infections who presented to the emergency department several days ago with fevers, chills and associated nausea and vomiting. The patient reports that he has had left arm discomfort. In the Emergency Department an incision and drainage was completed and packing placed. The patient does have an elevated white blood cell count. The patient has been febrile during this admission. Despite the use of IV antibiotics, the abscess continues to increase in size. The patient does complain of moderate discomfort at the site. He denies any known trauma to the area. In the past, he has had a similar abscess on his leg which was drained at the bedside. Dr. Conley with Infectious Disease has requested a General Surgery consultation. <Adelita Olivier - Last Filed: 02/14/18 08:52> Review of Systems Constitutional: Reports body ache(s), Reports fever(s) Eyes: Denies blurry vision Ears, Nose, Mouth, and Throat: Denies dizziness, Denies headache(s) Cardiovascular: Denies chest pain, Denies chest pain at rest, Denies chest pain with activity Respiratory: Denies chest congestion, Denies cough Gastrointestinal: Reports nausea, Denies belching Genitourinary: Denies urinary frequency, Denies urinary hesitancy Musculoskeletal: Reports body aches Skin/Breast: Reports boil (LEFT axillary), Reports redness, Denies dry skin Neurologic: Denies abnormal hearing, Denies abnormal movements Psychiatric: Denies anxiety, Denies depression, Denies hopelessness Endocrine: Denies cold intolerance, Denies heat intolerance Hematologic/Lymphatic: Denies easy bleeding Allergic/Immunologic: Denies GI upset with certain foods <Adelita Olivier - Last Filed: 02/14/18 08:52> PMFSH - History History Provided By: Patient - Medical History Medical History: Medical History (Last Reviewed 02/13/18 @ 14:16 by SANDRA Cordova) Cerebral palsy (Acute) Hamstring tightness Skin infection, bacterial - Family History Family History: Family History (Last Reviewed 02/12/18 @ 03:23 by Consuelo Ennis RN) Other Diabetes mellitus - Tobacco History Second Hand Smoke Exposure: No Smoking Status: Never smoker - Alcohol History How Often Do You Have a Drink Containing Alcohol: Monthly or less - Substance Use History Substance History: No History of Abuse - Substance Use Type Marijuana Frequency: NOT LATELY - Travel History Recent Travel in the [place] Within the Last 8 Weeks: No Recent Travel Out of the Country Within the Last 8 Weeks: No - Immunization History Tetanus Immunization: Unsure Tetanus Immunization Year if Known: 2016 Hx Influenza Vaccine This Season: No <Adelita Olivier - Last Filed: 02/14/18 08:52> - Medical History Medical History: Medical History (Last Reviewed 02/13/18 @ 14:16 by SANDRA Cordova) Cerebral palsy (Acute) Hamstring tightness Skin infection, bacterial - Family History Family History: Family History (Last Reviewed 02/12/18 @ 03:23 by Consuelo Ennis RN) Other Diabetes mellitus <Mars Rendon - Last Filed: 02/14/18 14:32> Medications and Allergies Active Medications: Active Medications Acetaminophen (Tylenol) 650 mg PO Q4H PRN PRN Reason: headache/fever/pain 1-4 Last Admin: 02/13/18 09:22 Dose: 650 mg Al Hydroxide/Mg Hydroxide (Milk Of Magnmarcelina Liq) 30 ml PO Q12H PRN PRN Reason: Mild Constipation Bisacodyl (Dulcolax Supp) 10 mg RECTAL DAILY PRN PRN Reason: SEVERE CONSITIPATION Heparin Sodium (Porcine) (Heparin Inj) 5,000 units SQ Q12HR [facility] Last Admin: 02/13/18 09:22 Dose: 5,000 units Sodium Chloride (Ns Inj) 1,000 mls @ 125 mls/hr IV.CONT .Q8H [facility] Last Infusion: 02/13/18 09:19 Dose: 125 mls/hr Cefepime HCl 2,000 mg/ Sodium (Chloride) 100 mls @ 200 mls/hr IV.SIG Q12H [facility] Last Infusion: 02/13/18 10:14 Dose: Infused Pharmacy Profile Note (Vancomycin Consult Pharmacy) 0 mls @ 0 mls/hr OTHER [facility] Vancomycin HCl 1,250 mg/ (Sodium Chloride) 262.5 mls @ 250 mls/hr IV.SIG Q8H [facility] Last Infusion: 02/13/18 05:35 Dose: Infused Clindamycin/Sodium Chloride (Cleocin 600 Mg/Ns Premix) 600 mg in 50 mls @ 100 mls/hr IV.SIG Q8H [facility] Lactulose (Lactulose Liq) 30 ml PO DAILY PRN PRN Reason: SEVERE CONSITIPATION Miscellaneous Information ([facility] Ordered Lab Info) 0 each OTHER ONCE ONE Stop: 02/14/18 03:46 Ondansetron HCl (Zofran Inj) 4 mg IV.PUSH Q6H PRN PRN Reason: NAUSEA OR VOMITING Last Admin: 02/12/18 21:32 Dose: 4 mg Oxycodone/Acetaminophen (Percocet 5/325 Mg) 1 tab PO Q4H PRN PRN Reason: pain 5-10 Last Admin: 02/12/18 21:30 Dose: 1 tab Senna/Docusate Sodium (Marina-Colace) 1 tab PO BID [facility] Last Admin: 02/13/18 10:21 Dose: Not Given Sennosides (Senokot) 17.2 mg PO Q12H PRN PRN Reason: Moderate Constipation Temazepam (Restoril) 15 mg PO HS PRN PRN Reason: INSOMNIA <Adelita Olivier - Last Filed: 02/14/18 08:52> Active Medications: Active Medications Acetaminophen (Tylenol) 650 mg PO Q4H PRN PRN Reason: headache/fever/pain 1-4 Last Admin: 02/13/18 09:22 Dose: 650 mg Al Hydroxide/Mg Hydroxide (Milk Of Magnesia Liq) 30 ml PO Q12H PRN PRN Reason: Mild Constipation Albuterol (Duoneb Neb (Prn)) 1 ampul NEB Q2HR NEB PRN PRN Reason: SHORTNESS OF BREATH Albuterol (Duoneb Neb (Parmjit)) 1 ampul NEB Q6HR NEB [facility] Last Admin: 02/14/18 08:14 Dose: 1 ampul Bisacodyl (Dulcolax Supp) 10 mg RECTAL DAILY PRN PRN Reason: SEVERE CONSITIPATION Heparin Sodium (Porcine) (Heparin Inj) 5,000 units SQ Q12HR [facility] Last Admin: 02/13/18 09:22 Dose: 5,000 units Cefepime HCl 2,000 mg/ Sodium (Chloride) 100 mls @ 200 mls/hr IV.SIG Q12H [facility] Last Infusion: 02/14/18 13:20 Dose: 200 mls/hr Pharmacy Profile Note (Vancomycin Consult Pharmacy) 0 mls @ 0 mls/hr OTHER UNSCH [facility] Vancomycin HCl 1,250 mg/ (Sodium Chloride) 262.5 mls @ 250 mls/hr IV.SIG Q8H [facility] Last Admin: 02/14/18 13:21 Dose: 250 mls/hr Clindamycin/Sodium Chloride (Cleocin 600 Mg/Ns Premix) 600 mg in 50 mls @ 100 mls/hr IV.SIG Q8H [facility] Last Infusion: 02/14/18 07:47 Dose: Infused Lactulose (Lactulose Liq) 30 ml PO DAILY PRN PRN Reason: SEVERE CONSITIPATION Methylprednisolone Sodium Succinate (Solumedrol Inj) 40 mg IV.PUSH Q6H [facility] Last Admin: 02/14/18 08:51 Dose: 40 mg Miscellaneous Information ([facility] Nursing Information) 1 each OTHER UNSCH PRN PRN Reason: SEE LABEL COMMENTS Stop: 02/14/18 19:51 Ondansetron HCl (Zofran Inj) 4 mg IV.PUSH Q6H PRN PRN Reason: NAUSEA OR VOMITING Last Admin: 02/13/18 13:23 Dose: 4 mg Oxycodone/Acetaminophen (Percocet 5/325 Mg) 1 tab PO Q4H PRN PRN Reason: pain 5-10 Last Admin: 02/13/18 13:22 Dose: 1 tab Senna/Docusate Sodium (Marina-Colace) 1 tab PO BID [facility] Last Admin: 02/14/18 08:51 Dose: 1 tab Sennosides (Senokot) 17.2 mg PO Q12H PRN PRN Reason: Moderate Constipation Temazepam (Restoril) 15 mg PO HS PRN PRN Reason: INSOMNIA <Mars Rendon - Last Filed: 02/14/18 14:32> Allergies Allergy/AdvReac Type Severity Reaction Status Date / Time No Known Allergies Allergy Verified 02/11/18 20:22 Home Medications Medication Instructions Recorded Confirmed Type hydrocodone-acetaminophen [[place]] 1 tab PO Q4H PRN 02/12/18 02/12/18 History Exam Vital signs: Vital Signs 02/12/18 16:00 02/12/18 18:38 02/12/18 20:00 Temperature 103 F H 99.8 F H 100.4 F H Pulse Rate 115 H 109 H Respiratory Rate 16 18 Blood Pressure 120/62 132/77 Pulse Oximetry 97 02/12/18 23:23 02/13/18 03:51 02/13/18 05:08 Temperature 98.6 F 102.6 F H 99.7 F H Pulse Rate 105 H 108 H Respiratory Rate 16 18 Blood Pressure 114/61 127/68 Pulse Oximetry 98 98 02/13/18 07:27 02/13/18 11:05 Temperature 100.3 F H 99.7 F H Pulse Rate 97 H 112 H Respiratory Rate 18 12 Blood Pressure 120/71 112/64 Pulse Oximetry 95 93 L Intake & Output 02/12/18 02/13/18 02/13/18 18:59 06:59 18:59 Intake Total 1362.5 / 1362.5 3105.0 / 3105.0 600 / 600 Output Total 350 / 350 850 / 850 500 / 500 Balance 1012.5 / 1012.5 2255.0 / 2255.0 100 / 100 Weight 81.6 kg Intake: IV 1362.5 / 1362.5 2625.0 / 2625.0 600 / 600 NS Inj 1,000 ML @ 125 mls/hr IV 1000 / 1000 2000 / 2000 500 / 500 .CONT .Q8H [facility] Rx#:[id number] Maxipime Inj 2,000 MG In NS Inj 100 / 100 100 / 100 100 / 100 100 ML @ 200 mls/hr IV.SIG Q12H [facility] Rx#:[id number] Vancomycin Inj 1,250 MG In NS 262.5 / 262.5 525.0 / 525.0 Inj 250 ML @ 250 mls/hr IV.SIG Q8H [facility] Rx#:[id number] Oral 480 / 480 Output: Urine 350 / 350 850 / 850 500 / 500 Other: Date of Last Bowel Movement 02/11/18 Narrative: GENERAL: Very pleasant 27 year old male resting in bed in no acute distress. SKIN: LEFT axillary: large area of redness that does fracisco upon touching; area tender; pocket of fluid palpable; packing removed and large (about 50 cc) of thick malodors purulent drainage from opening. Expressed about 30 cc additional of fluid. Redness extended over to LEFT side of chest lateral to nipple. HEAD: Atraumatic. Normocephalic. EYES: Pupils equal and round. No scleral icterus. No injection or drainage. ENT: No nasal bleeding or discharge. Mucous membranes pink and moist. NECK: Trachea midline. CARDIOVASCULAR: Regular rate and rhythm. RESPIRATORY: No accessory muscle use. Clear to auscultation. Breath sounds equal bilaterally. GASTROINTESTINAL: Abdomen soft, non-tender, nondistended. MUSCULOSKELETAL: Extremities without clubbing, cyanosis, or edema. No obvious deformities. NEUROLOGICAL: Awake and alert. No obvious cranial nerve deficits. Motor grossly within normal limits. Five out of 5 muscle strength in the arms and legs. Normal speech. PSYCHIATRIC: Appropriate mood and affect; insight and judgment normal. <Adelita Olivier - Last Filed: 02/14/18 08:52> Vital signs: Vital Signs 02/13/18 19:46 02/13/18 20:00 02/13/18 20:15 Temperature 98.6 F 98.6 F 98.6 F Pulse Rate 105 H 127 H 105 H Respiratory Rate 22 37 H 25 H Blood Pressure 123/59 L 130/63 122/57 L Pulse Oximetry 87 L 92 L 92 L 02/13/18 20:30 02/13/18 20:45 02/13/18 20:55 Temperature 98.6 F 98.6 F Pulse Rate 100 H 100 H Respiratory Rate 27 H 20 Blood Pressure 115/60 115/61 Pulse Oximetry 92 L 93 L 92 L 02/13/18 21:00 02/13/18 21:15 02/13/18 21:30 Temperature 98.6 F 98.6 F 98.6 F Pulse Rate 97 H 96 H 90 Respiratory Rate 25 H 14 16 Blood Pressure 111/56 L 111/61 111/63 Pulse Oximetry 93 L 92 L 93 L 02/13/18 21:38 02/13/18 21:40 02/13/18 21:45 Temperature 98.6 F Pulse Rate 90 Respiratory Rate 18 Blood Pressure 108/61 Pulse Oximetry 96 96 94 L 02/13/18 22:00 02/13/18 22:20 02/13/18 22:30 Temperature 98.6 F 98.6 F Pulse Rate 105 H 90 Respiratory Rate 22 12 Blood Pressure 123/59 L 109/72 Pulse Oximetry 87 L 94 L 91 L 02/13/18 23:00 02/13/18 23:30 02/14/18 01:46 Temperature 98.6 F 98.2 F 98.3 F Pulse Rate 89 92 H 88 Respiratory Rate 12 14 18 Blood Pressure 104/64 111/65 117/69 Pulse Oximetry 91 L 92 L 93 L 02/14/18 05:59 02/14/18 08:00 02/14/18 08:17 Temperature 98.2 F 98.7 F Pulse Rate 85 92 H 82 Respiratory Rate 16 16 18 Blood Pressure 124/85 125/82 Pulse Oximetry 94 L 02/14/18 12:00 Temperature 98.5 F Pulse Rate 110 H Respiratory Rate 16 Blood Pressure 112/85 Pulse Oximetry 95 Intake & Output 02/13/18 02/14/18 02/14/18 18:59 06:59 18:59 Intake Total 1212.5 / 1212.5 2475.0 / 2475.0 1050 / 1050 Output Total 500 / 500 305 / 305 Balance 712.5 / 712.5 2170.0 / 2170.0 1050 / 1050 Weight 87.3 kg Intake: IV 1212.5 / 1212.5 1675.0 / 1675.0 1050 / 1050 NS Inj 1,000 ML @ 125 mls/hr IV 800 / 800 1000 / 1000 1000 / 1000 .CONT .Q8H [facility] Rx#:[id number] Maxipime Inj 2,000 MG In NS Inj 100 / 100 100 / 100 0 / 0 100 ML @ 200 mls/hr IV.SIG Q12H [facility] Rx#:[id number] Cleocin 600 mg/NS Premix 600 mg 50 / 50 50 / 50 50 / 50 In 50 ml @ 100 mls/hr IV.SIG Q8H [facility] Rx#:[id number] Vancomycin Inj 1,250 MG In NS 262.5 / 262.5 525.0 / 525.0 Inj 250 ML @ 250 mls/hr IV.SIG Q8H [facility] Rx#:[id number] Oral 0 / 0 Anesthesia Amount 800 / 800 Output: Urine 500 / 500 300 / 300 Stool 0 / 0 Estimated Blood Loss 5 / 5 Other: Date of Last Bowel Movement 02/13/18 02/13/18 <Mars Rendon - Last Filed: 02/14/18 14:32> Results - Labs 02/14/18 06:14 02/14/18 03:55 Laboratory Results WBC 14.8 th/mm3 (4.0-11.0) H 02/13/18 04:10 RBC 4.37 mil/mm3 (4.50-5.90) L 02/13/18 04:10 Hgb 13.2 gm/dL (13.0-17.0) 02/13/18 04:10 Hct 37.9 % (39.0-51.0) L 02/13/18 04:10 MCV 86.8 fL (80.0-100.0) 02/13/18 04:10 MCH 30.2 pg (27.0-34.0) 02/13/18 04:10 MCHC 34.8 % (32.0-36.0) 02/13/18 04:10 RDW 12.9 % (11.6-17.2) 02/13/18 04:10 Plt Count 84 th/mm3 (150-450) L 02/13/18 04:10 MPV 11.2 fL (7.0-11.0) H 02/13/18 04:10 Prelim Diff (Auto) Slide review pending 02/13/18 04:10 Neut % (Auto) 82.8 % (16.0-70.0) H 02/13/18 04:10 Lymph % (Auto) 6.4 % (9.0-44.0) L 02/13/18 04:10 [place] % (Auto) 9.9 % (0.0-8.0) H 02/13/18 04:10 Eos % (Auto) 0.6 % (0.0-4.0) 02/13/18 04:10 Baso % (Auto) 0.3 % (0.0-2.0) 02/13/18 04:10 Neut # (Auto) 12.3 th/mm3 (1.8-7.7) H 02/13/18 04:10 Lymph # (Auto) 0.9 th/mm3 (1.0-4.8) L 02/13/18 04:10 [place] # (Auto) 1.5 th/mm3 (0.0-0.9) H 02/13/18 04:10 Eos # (Auto) 0.1 th/mm3 (0.0-0.4) 02/13/18 04:10 Baso # (Auto) 0.0 th/mm3 (0.0-0.2) 02/13/18 04:10 WBC Differential Manual diff final 02/13/18 04:10 Diff Scan Auto diff confirmed 02/11/18 21:10 Seg Neuts % (Manual) 81 % (16-70) H 02/13/18 04:10 Band Neuts % (Manual) 4 % (0-6) 02/13/18 04:10 Lymphocytes % (Manual) 4 % (9-44) L 02/13/18 04:10 Monocytes % (Manual) 10 % (0-8) H 02/13/18 04:10 Eosinophils % (Manual) 1 % (0-4) 02/13/18 04:10 Basophils % (Manual) 1 % (0-2) 02/12/18 11:59 Abs Neuts (Manual) 12.6 th/mm3 (1.8-7.7) H 02/13/18 04:10 Differential Comment . 02/13/18 04:10 Platelet Estimate Low (Normal) L 02/13/18 04:10 Platelet Morphology Normal (Normal) 02/13/18 04:10 RBC Morphology Normal (Normal) 02/11/18 21:10 Sodium 140 meq/L (136-145) 02/13/18 04:10 Potassium 3.6 meq/L (3.5-5.1) 02/13/18 04:10 Chloride 107 meq/L (98-107) 02/13/18 04:10 Carbon Dioxide 23.7 meq/L (21.0-32.0) 02/13/18 04:10 Anion Gap 9 meq/L (5-15) 02/13/18 04:10 BUN 8 mg/dL (7-18) 02/13/18 04:10 Creatinine 0.77 mg/dL (0.60-1.30) 02/13/18 04:10 Estimated GFR Greater than 89 mL/min (>89) 02/13/18 04:10 Random Glucose 78 mg/dL (74-106) 02/13/18 04:10 Lactic Acid 1.4 mmol/L (0.4-2.0) 02/11/18 21:10 Calcium 7.5 mg/dL (8.5-10.1) L 02/13/18 04:10 Total Bilirubin 1.5 mg/dL (0.2-1.0) H 02/11/18 21:10 AST 16 U/L (15-37) 02/11/18 21:10 ALT 21 U/L (12-78) 02/11/18 21:10 Alkaline Phosphatase 67 U/L (45-117) 02/11/18 21:10 Total Protein 7.8 g/dL (6.4-8.2) 02/11/18 21:10 Albumin 3.6 g/dL (3.4-5.0) 02/11/18 21:10 Urine Color Keyla (Yellw/Straw) 02/12/18 03:00 Urine Clarity Hazy (Clear) H 02/12/18 03:00 Urine pH 5.0 (5.0-8.5) 02/12/18 03:00 Ur Specific [place] 1.031 (1.002-1.035) 02/12/18 03:00 Urine Protein 100 mg/dL (Neg-Trace) H 02/12/18 03:00 Urine Glucose (UA) Negative mg/dL (Negative) 02/12/18 03:00 Urine Ketones 20 mg/dL (Negative) 02/12/18 03:00 Urine Occult Blood Negative (Negative) 02/12/18 03:00 Urine Nitrate Negative (Negative) 02/12/18 03:00 Urine Bilirubin Small (Negative) H 02/12/18 03:00 Urine Urobilinogen 4 or greater mg/dL (Less than 2) 02/12/18 03:00 Ur Leukocyte Esterase Negative (Negative) 02/12/18 03:00 Urine RBC 3 /hpf (0-3) 02/12/18 03:00 Urine WBC 5 /hpf (0-5) 02/12/18 03:00 Ur Squamous Epith Cells <1 /hpf (0-5) 02/12/18 03:00 Urine Mucus Few /lpf (Occasional) H 02/12/18 03:00 Micro UA Comment Culture not ind 02/12/18 03:00 Urine Culture Comments Culture not ind 02/12/18 03:00 Vancomycin Trough 25.7 mcg/mL (5.0-10.0) H 02/13/18 08:09 Impressions Chest X-Ray 08/11/18 21:02 CONCLUSION: No evidence of acute cardiopulmonary disease. Humerus CT 02/13/18 00:00 CONCLUSION: 1. Left axillary and chest wall cellulitis 2. Ill-defined fluid collections in the left axilla and left chest wall are characteristic of an inflammatory phlegmon/developing abscess. No discrete, well -defined fluid collections are identified at this time. - Imaging Additional studies: CT LEFT humerus <SoyAdelita - Last Filed: 02/14/18 08:52> - Labs 02/14/18 06:14 02/14/18 03:55 Abnormal lab results 02/13/18 02/14/18 02/14/18 Range/Units 23:11 03:55 03:55 WBC (4.0-11.0) th/mm3 Plt Count (150-450) th/mm3 Seg Neuts % (Manual) (16-70) % Lymphocytes % (Manual) (9-44) % Abs Neuts (Manual) (1.8-7.7) th/mm3 Platelet Estimate (Normal) ABG pCO2 36 L (38-42) mmHg Random Glucose 112 H (74-106) mg/dL Calcium 8.3 L D (8.5-10.1) mg/dL Vancomycin Trough 13.7 H (5.0-10.0) mcg/mL 02/14/18 Range/Units 06:14 WBC 15.0 H (4.0-11.0) th/mm3 Plt Count 113 L D (150-450) th/mm3 Seg Neuts % (Manual) 90 H (16-70) % Lymphocytes % (Manual) 3 L (9-44) % Abs Neuts (Manual) 14.4 H (1.8-7.7) th/mm3 Platelet Estimate Low L (Normal) ABG pCO2 (38-42) mmHg Random Glucose (74-106) mg/dL Calcium (8.5-10.1) mg/dL Vancomycin Trough (5.0-10.0) mcg/mL Diabetes panel 02/14/18 Range/Units 03:55 Sodium 142 (136-145) meq/L Potassium 4.2 (3.5-5.1) meq/L Chloride 107 (98-107) meq/L Carbon Dioxide 22.9 (21.0-32.0) meq/L BUN 9 (7-18) mg/dL Creatinine 0.76 (0.60-1.30) mg/dL Calcium 8.3 L D (8.5-10.1) mg/dL Calcium panel 02/14/18 Range/Units 03:55 Calcium 8.3 L D (8.5-10.1) mg/dL Pituitary panel 02/14/18 Range/Units 03:55 Sodium 142 (136-145) meq/L Potassium 4.2 (3.5-5.1) meq/L Chloride 107 (98-107) meq/L Carbon Dioxide 22.9 (21.0-32.0) meq/L BUN 9 (7-18) mg/dL Creatinine 0.76 (0.60-1.30) mg/dL Calcium 8.3 L D (8.5-10.1) mg/dL Adrenal panel 02/14/18 Range/Units 03:55 Sodium 142 (136-145) meq/L Potassium 4.2 (3.5-5.1) meq/L Chloride 107 (98-107) meq/L Carbon Dioxide 22.9 (21.0-32.0) meq/L BUN 9 (7-18) mg/dL Creatinine 0.76 (0.60-1.30) mg/dL Calcium 8.3 L D (8.5-10.1) mg/dL All other labs normal. <Mars Rendon - Last Filed: 02/14/18 14:32> Assessment and Plan - Assessment (1) Axillary abscess Code(s): L02.419 - Cutaneous abscess of limb, unspecified Status: Acute Plan: 27 year old male with LEFT axillary abscess with extension to chest wall -NPO -Hold anticoagulation -Plan for OR this evening for incision and drainage of LEFT axillary abscess with possible Wound Vac placement -Cultures already obtained--- await results -Procedure explained to patient as well as Grandmother via phone ([phone]) -Thank you for this consult; We will continue to follow - Plan Discussed Condition With: Dr. Julieta Stack RN Mr. Judy Bolaños (Grandmother) [phone] <Adelita Olivier - Last Filed: 02/14/18 08:52> - Assessment (1) Axillary abscess Code(s): L02.419 - Cutaneous abscess of limb, unspecified Status: Acute - Attending Attestation The exam, history, and the medical decision-making described in the above note were completed with the assistance of the mid-level provider. I reviewed and agree with the findings presented. I attest that I had a [id number] encounter with the patient on the same day, and personally performed and documented my assessment and findings in the medical record. left axillary abscess, recurrent and worsening some necrotic tissue and draining put from left axilla, cellulitis d/w patient, will need OR for drainage and washout, possibly debridement. pt agrees and will proceed with surgery <Mars Rendon - Last Filed: 02/14/18 14:32>
--- NOTE | 2018-02-13 14:03 | CT ---
EXAM DATE: 02/13/2018 1:21 PM EDT AGE/SEX: 27 years / Male INDICATIONS: Left axillary and chest wall abscess. CLINICAL DATA: This is the patient's initial encounter. Patient reports that signs and symptoms have been present for 3 days and indicates a pain score of 8/10. MEDICAL/SURGICAL HISTORY: Diabetes. cerebral palsy None. RADIATION DOSE: 32.44 CTDI (mGy) COMPARISON: No prior exams available for comparison. TECHNIQUE: Multiple contiguous axial images were acquired using a multi-row detector CT scanner afte r the intravenous administration of 70 ml Omnipaque 350 (iohexol) nonionic water-soluble contrast as a single exam dose. Multiplanar reconstruction was performed in the sagittal and coronal planes. Using automated exposure control and adjustment of the mA and/or kV according to patient size, radiat ion dose was kept as low as reasonably achievable to obtain optimal diagnostic quality images. DICOM format image data is available electronically for review and comparison. FINDINGS: Stranding in the tissues of the left axilla extending into the left chest wall. Somewhat ill-defined fluid collections in the axilla and left chest wall are characteristic of inflammatory phlegmon or de veloping abscess. The largest collection in the chest wall measures 4.8 x 2.2 cm. The humerus itself is intact CONCLUSION: 1. Left axillary and chest wall cellulitis 2. Ill-defined fluid collections in the left axilla and left chest wall are characteristic of an inf lammatory phlegmon/developing abscess. No discrete, well-defined fluid collections are identified at this time. Electronically signed by: Yayo Kelley MD 02/13/2018 2:02 PM EDT
[2018-02-13] MEDS: Clindamycin 600 mg/NS Premix 600 MG/50 ML PIGGYBACK IV.SIG SCH ×2 (15:13→22:00)
[2018-02-13] MEDS ORDERED: Bupivacaine/Epinephrine PF Inj 0.25% 10 ML Vial ONE (17:40)
[2018-02-13] MEDS ORDERED: Sugammadex Inj 200 MG/2 ML Vial IV.PUSH ONE (18:45)
[2018-02-13] MEDS ORDERED: fentaNYL Citrate Inj 100 MCG/2 ML Ampul ONE ×2 (18:58→19:33)
[2018-02-13] MEDS ORDERED: MethylPREDNISolone Sod Succinate Inj 125 MG/2 ML Vial ONE (19:37)
[2018-02-13] MEDS ORDERED: *morphine SULFATE 4 MG/ML PERIprocedure ONLY ONE (20:53)
--- NOTE | 2018-02-13 22:01 | MP ---
cc: Mars Rendon MD DATE OF OPERATION: 02/13/2018 PREOPERATIVE DIAGNOSIS: Left axillary abscess. POSTOPERATIVE DIAGNOSIS: Left axillary abscess. PROCEDURE PERFORMED: Incision and drainage of left axillary abscess 5 cm x 6 cm. ATTENDING SURGEON: Mars Rendon MD DESILVERIZER: Malgorzata Jackson, medical student 3. ESTIMATED BLOOD LOSS: 50 mL. COMPLICATIONS: None. FINDINGS: A large amount of purulent material with minimal necrotic tissue in a well defined, mature left axillary abscess cavity with a small area of initial drainage insufficient to drain multiple loculated abscess. INDICATIONS FOR PROCEDURE: The patient is a 27-year-old male who developed left axillary swelling and pain over the last 1 week. The patient underwent an initial drainage 24 hours ago in the emergency department; however, this continued to drain purulent material and the patient did have some continued evidence of cellulitis. General surgery was consulted for further more aggressive wider drainage due to concern for insufficient initial drainage. I discussed with the patient personally risks, benefits, and alternatives to return to the operating room for further drainage. All questions were answered to his satisfaction. He agreed to undergo the procedure. DESCRIPTION OF PROCEDURE: The patient was taken to the operating room, placed in a supine position and placed under general endotracheal anesthesia. The patient's left axilla was shaved, prepped and draped in sterile fashion. Timeout was performed. The abscess incision that was initially in the left axilla was extended and the abscess cavity was explored digitally as well as with a blunt hemostat. This was a large loculated cavity. It extended down inferiorly and caudally. We made a counter incision with the Bovie electrocautery approximately 2 cm further down below the axillary hairline. We ensured these 2 incisions connected and we irrigated and debrided and broke up any loculations gently with finger dissection. There was a mature abscess cavity with a typical amount of oozing from the inflammatory abscess wall and all purulent material and a minimal amount of necrotic tissue was expressed and irrigated from the abscess cavity. There was no necrotizing infection or sign of any tissue that needed further debridement; therefore, we did not perform a debridement or resection of any tissue. We placed a blue vessel loop through the initial incision, as well as the counter incision, and tied this to itself with a silk suture to ensure the pathway of drainage. We also packed the incision with iodoform gauze. Sterile dressing was applied. The patient was discontinued from anesthesia and taken to the PACU in stable condition. The patient tolerated the procedure well. No apparent complications. All counts were correct. I was present and scrubbed for the entire procedure. MD MICHAEL Zendejas/denise , 07:44 PM , 07:52 PM
--- NOTE | 2018-02-13 22:12 | XR ---
EXAM DATE: 02/13/2018 10:07 PM EDT AGE/SEX: 27 years / Male INDICATIONS: Short of breath. CLINICAL DATA: This is the patient's initial encounter. Patient reports that signs and symptoms have been present for 1 day and indicates a pain score of Nonresponsive. MEDICAL/SURGICAL HISTORY: . Diabetes. Cerebral palsy. None. [place] [facility] [place]. . FINDINGS: A single AP semierect view of the chest was obtained and demonstrates new abnormal opacity at the rig ht lung base. The left lung is clear. The heart size is at the upper limits of normal. There is no ef fusion. The bony thorax is intact. CONCLUSION: Abnormal opacity at the right lung base of concern for pneumonia. Electronically signed by: Elpidio Charles MD 02/13/2018 10:11 PM EDT
[2018-02-13 23:26] LABS: ABG Base Excess -0.7 mmol/L (-2-2); ABG PCO2 36 mmHg (38-42); ABG PO2 68 mmHG (61-120)
[2018-02-14] MEDS: Senna/Docusate Sodium 8.6/50 MG Tablet PO SCH ×3 (00:33→20:41)
[2018-02-14] MEDS: Sod Chloride 0.9% Inj 1,000 ML IV.CONT SCH ×2 (00:36→08:52)
[2018-02-14] MEDS: MethylPREDNISolone Sod Succinate Inj 40 MG/ML Vial IV.PUSH SCH ×4 (01:49→20:41)
[2018-02-14] MEDS ORDERED: Pharmacy Ordered Lab Info OTHER ONE (03:45)
[2018-02-14] MEDS: Vancomycin Inj 1,250 MG in Sodium Chlor 0.9% Inj 250 ML IV.SIG SCH ×3 (04:16→20:41)
[2018-02-14] MEDS: Clindamycin 600 mg/NS Premix 600 MG/50 ML PIGGYBACK IV.SIG SCH ×3 (07:10→22:58)
[2018-02-14 07:42] LABS: Hematocrit 43.2 % (39.0-51.0); Mean Corpuscular HGB Conc 34.6 % (32.0-36.0); Mean Corpuscular Volume 86.6 fL (80.0-100.0); Mean Platelet Volume 10.9 fL (7.0-11.0); Platelet Count 113 th/mm3 (150-450); Red Blood Count 4.99 mil/mm3 (4.50-5.90)
[2018-02-14 07:59] LABS: Anion Gap 12 meq/L (5-15); Blood Urea Nitrogen 9 mg/dL (7-18); Calcium 8.3 mg/dL (8.5-10.1); Carbon Dioxide 22.9 meq/L (21.0-32.0); Chloride 107 meq/L (98-107); Glomerular Filtration Rate Greater Than 89 mL/min (>89); Glucose,Random 112 mg/dL (74-106); Potassium 4.2 meq/L (3.5-5.1); Sodium 142 meq/L (136-145)
[2018-02-14 08:48] LABS: Lymphocytes 3 % (9-44); Monocytes 1 % (0-8); Platelet Morphology Normal (Normal)
--- NOTE | 2018-02-14 11:00 | P.PNIM ---
Subjective Interval history: Patient is eating breakfast. States pain control. No other concerns at this time. Physical Exam Vital signs: Vital Signs 02/13/18 11:05 02/13/18 19:46 02/13/18 20:00 Temperature 99.7 F H 98.6 F 98.6 F Pulse Rate 112 H 105 H 127 H Respiratory Rate 12 22 37 H Blood Pressure 112/64 123/59 L 130/63 Pulse Oximetry 93 L 87 L 92 L 02/13/18 20:15 02/13/18 20:30 02/13/18 20:45 Temperature 98.6 F 98.6 F 98.6 F Pulse Rate 105 H 100 H 100 H Respiratory Rate 25 H 27 H 20 Blood Pressure 122/57 L 115/60 115/61 Pulse Oximetry 92 L 92 L 93 L 02/13/18 20:55 02/13/18 21:00 02/13/18 21:15 Temperature 98.6 F 98.6 F Pulse Rate 97 H 96 H Respiratory Rate 25 H 14 Blood Pressure 111/56 L 111/61 Pulse Oximetry 92 L 93 L 92 L 02/13/18 21:30 02/13/18 21:38 02/13/18 21:40 Temperature 98.6 F Pulse Rate 90 Respiratory Rate 16 Blood Pressure 111/63 Pulse Oximetry 93 L 96 96 02/13/18 21:45 02/13/18 22:00 02/13/18 22:20 Temperature 98.6 F 98.6 F Pulse Rate 90 105 H Respiratory Rate 18 22 Blood Pressure 108/61 123/59 L Pulse Oximetry 94 L 87 L 94 L 02/13/18 22:30 02/13/18 23:00 02/13/18 23:30 Temperature 98.6 F 98.6 F 98.2 F Pulse Rate 90 89 92 H Respiratory Rate 12 12 14 Blood Pressure 109/72 104/64 111/65 Pulse Oximetry 91 L 91 L 92 L 02/14/18 01:46 02/14/18 05:59 02/14/18 08:00 Temperature 98.3 F 98.2 F 98.7 F Pulse Rate 88 85 92 H Respiratory Rate 18 16 16 Blood Pressure 117/69 124/85 125/82 Pulse Oximetry 93 L 94 L 02/14/18 08:17 Temperature Pulse Rate 82 Respiratory Rate 18 Blood Pressure Pulse Oximetry Intake & Output 0802/14/18 02/14/18 18:59 06:59 18:59 Intake Total 1212.5 / 1212.5 2475.0 / 2475.0 50 / 50 Output Total 500 / 500 305 / 305 Balance 712.5 / 712.5 2170.0 / 2170.0 50 / 50 Weight 87.3 kg Intake: IV 1212.5 / 1212.5 1675.0 / 1675.0 50 / 50 NS Inj 1,000 ML @ 125 mls/hr IV 800 / 800 1000 / 1000 .CONT .Q8H [facility] Rx#:[id number] Maxipime Inj 2,000 MG In NS Inj 100 / 100 100 / 100 100 ML @ 200 mls/hr IV.SIG Q12H [facility] Rx#:[id number] Cleocin 600 mg/NS Premix 600 mg 50 / 50 50 / 50 50 / 50 In 50 ml @ 100 mls/hr IV.SIG Q8H [facility] Rx#:[id number] Vancomycin Inj 1,250 MG In NS 262.5 / 262.5 525.0 / 525.0 Inj 250 ML @ 250 mls/hr IV.SIG Q8H [facility] Rx#:[id number] Oral 0 / 0 Anesthesia Amount 800 / 800 Output: Urine 500 / 500 300 / 300 Stool 0 / 0 Estimated Blood Loss 5 / 5 Other: Date of Last Bowel Movement 02/13/18 02/13/18 Narrative: GENERAL: Well-nourished, well-developed young male patient in [facility]. HEENT: Normocephalic. Atraumatic. Pupils equal and round. Mucous membranes pink and moist. CARDIOVASCULAR: Tachycardic, regular rhythm. No murmur appreciated. RESPIRATORY: No accessory muscle use. Diminished inspiratory effort, otherwise clear to auscultation. Breath sounds equal bilaterally. GASTROINTESTINAL: Abdomen soft, non-tender, nondistended. Normoactive bowel sounds x4. MUSCULOSKELETAL: No obvious deformities. Extremities without clubbing, cyanosis , or edema. Left axillary region with some mild drainage over the bandage NEUROLOGICAL: Awake and alert. No obvious cranial nerve deficits. Results - Labs CBC & Chem 7: 02/14/18 06:14 02/14/18 03:55 Laboratory Results - last 24 hr 02/13/18 02/14/18 02/14/18 23:11 03:55 03:55 WBC RBC Hgb Hct MCV MCH MCHC RDW Plt Count MPV Prelim Diff (Auto) WBC Differential Seg Neuts % (Manual) Band Neuts % (Manual) Lymphocytes % (Manual) Monocytes % (Manual) Abs Neuts (Manual) Differential Comment Platelet Estimate Platelet Morphology Puncture Site Right radial Patient Temperature 98.6 O2 Saturation 91 ABG pH 7.42 ABG pCO2 36 L ABG pO2 68 ABG HCO3 23 ABG O2 Content 18.7 ABG Base Excess -0.7 ABG Methemoglobin 1.4 Adam Test Present Hemoglobin 14.5 Carboxyhemoglobin 0.9 O2 Delivery Device Ventur mask Inspired O2 35 Critical Value No Sodium 142 Potassium 4.2 Chloride 107 Carbon Dioxide 22.9 Anion Gap 12 BUN 9 Creatinine 0.76 Estimated GFR Greater than 89 Random Glucose 112 H Calcium 8.3 L D Vancomycin Trough 13.7 H 02/14/18 06:14 WBC 15.0 H RBC 4.99 Hgb 15.0 Hct 43.2 MCV 86.6 MCH 30.0 MCHC 34.6 RDW 13.0 Plt Count 113 L D MPV 10.9 Prelim Diff (Auto) Manual diff required WBC Differential Manual diff final Seg Neuts % (Manual) 90 H Band Neuts % (Manual) 6 Lymphocytes % (Manual) 3 L Monocytes % (Manual) 1 Abs Neuts (Manual) 14.4 H Differential Comment . Platelet Estimate Low L Platelet Morphology Normal Puncture Site Patient Temperature O2 Saturation ABG pH ABG pCO2 ABG pO2 ABG HCO3 ABG O2 Content ABG Base Excess ABG Methemoglobin Adam Test Hemoglobin Carboxyhemoglobin O2 Delivery Device Inspired O2 Critical Value Sodium Potassium Chloride Carbon Dioxide Anion Gap BUN Creatinine Estimated GFR Random Glucose Calcium Vancomycin Trough Microbiology 02/12/18 03:00 Abscess - Axilla Gram Stain - Final 02/12/18 03:00 Abscess - Axilla Wound Culture - Preliminary S. aureus MRSA 02/13/18 19:25 Fluid - Other Gram Stain - Final 02/11/18 21:10 Blood - Peripheral Aerobic Blood Culture - Preliminary No growth in 2 days 02/11/18 21:10 Blood - Peripheral Anaerobic Blood Culture - Preliminary No growth in 2 days 02/11/18 21:05 Blood - Peripheral Aerobic Blood Culture - Preliminary No growth in 2 days 02/11/18 21:05 Blood - Peripheral Anaerobic Blood Culture - Preliminary No growth in 2 days - Imaging Impressions Chest X-Ray 02/13/18 00:00 CONCLUSION: Abnormal opacity at the right lung base of concern for pneumonia. Humerus CT 02/13/18 00:00 CONCLUSION: 1. Left axillary and chest wall cellulitis 2. Ill-defined fluid collections in the left axilla and left chest wall are characteristic of an inflammatory phlegmon/developing abscess. No discrete, well -defined fluid collections are identified at this time. Assessment and Plan - Plan 27-year-old male with a past medical history significant for cerebral palsy and multiple MRSA skin infections presents the emergency department for evaluation of the left axillary abscess. Sepsis with left axillary abscess: History of MRSA infections. Meets sepsis criteria with fever T-max 103.2, tachycardia heart rate 127, leukocytosis WBC 15 K, suspected sourceabscess. Lactic acid 1.4. -Status post I&D in the ED 02/11 With formal incision and drainage in the OR with Dr. Rendon of the left axillary 02/14 -Continue antibiotics with IV cefepime and IV vancomycin and IV clindamycin per infectious disease, Dr. Conley and follow-up with final wound cultures. -Pain control with Tylenol, Percocet as needed -Continue IV fluid hydration -Preliminary wound culture with MRSA -Blood cultures with no growth to date Acute Bronchitis: patient with cough productive of yellow sputum -CXR reviewed, no acute findings -Check sputum culture -On antibiotics as above -Robitussin prn cough -Monitor for improvement Cerebral palsy: Chronic -Patient reports he uses a wheelchair and a walker -PT consulted DVT prophylaxis: Heparin sq
--- NOTE | 2018-02-14 13:54 | P.PNID ---
Subjective Remarks: is a 27 y/o CM with PMHx significant for Cerebral palsy and multiple MRSA skin infections. Patient presents the emergency department for evaluation of the left axillary abscess which per review of records appears to have started 3 days [employer] but patient is not a reliable historian for reasons stated above. He also developed fevers, chills, associated with nausea and vomiting. No reported trauma to the area. There was reportedly spontaneous eruption of the abscess and additionally he underwent I&D bedside in the ED. Patient underwent evaluation for sepsis workup and was started on empiric Cefepime IV and Vanco IV. Despite this regimen the patient continues to show signs of ongoing sepsis with persistent fevers, tachycardia and leucocytosis. Upon my evaluation in the ED patient had restricted movement at the left shoulder level due to pain. There was significant induration and pain noted. The area of induration appears to have spread beyond the line of demarcation. ID consulted for evaluation and Mment of Sepsis, Left axillary and left chest wall abscess, possible underlying infective myositis. Medical History Cerebral palsy (Acute) Hamstring tightness Skin infection, bacterial Overnight events reviewed No fevers No rash No diarrhea s/p drainage of the axillary and chest wall abscess in OR yday. Antibiotics: Vanco IV Cefepime IV Clinda IV Lines: Lines ok Past Medical History: reviewed Allergies/Adverse Reactions: Allergies No Known Allergies Allergy (Verified 02/11/18 20:22) Objective Vital Signs 02/13/18 19:46 02/13/18 20:00 02/13/18 20:15 Temperature 98.6 F 98.6 F 98.6 F Pulse Rate 105 H 127 H 105 H Respiratory Rate 22 37 H 25 H Blood Pressure 123/59 L 130/63 122/57 L Pulse Oximetry 87 L 92 L 92 L 02/13/18 20:30 02/13/18 20:45 02/13/18 20:55 Temperature 98.6 F 98.6 F Pulse Rate 100 H 100 H Respiratory Rate 27 H 20 Blood Pressure 115/60 115/61 Pulse Oximetry 92 L 93 L 92 L 02/13/18 21:00 02/13/18 21:15 02/13/18 21:30 Temperature 98.6 F 98.6 F 98.6 F Pulse Rate 97 H 96 H 90 Respiratory Rate 25 H 14 16 Blood Pressure 111/56 L 111/61 111/63 Pulse Oximetry 93 L 92 L 93 L 02/13/18 21:38 02/13/18 21:40 02/13/18 21:45 Temperature 98.6 F Pulse Rate 90 Respiratory Rate 18 Blood Pressure 108/61 Pulse Oximetry 96 96 94 L 02/13/18 22:00 02/13/18 22:20 02/13/18 22:30 Temperature 98.6 F 98.6 F Pulse Rate 105 H 90 Respiratory Rate 22 12 Blood Pressure 123/59 L 109/72 Pulse Oximetry 87 L 94 L 91 L 02/13/18 23:00 02/13/18 23:30 02/14/18 01:46 Temperature 98.6 F 98.2 F 98.3 F Pulse Rate 89 92 H 88 Respiratory Rate 12 14 18 Blood Pressure 104/64 111/65 117/69 Pulse Oximetry 91 L 92 L 93 L 02/14/18 05:59 02/14/18 08:00 02/14/18 08:17 Temperature 98.2 F 98.7 F Pulse Rate 85 92 H 82 Respiratory Rate 16 16 18 Blood Pressure 124/85 125/82 Pulse Oximetry 94 L 02/14/18 12:00 Temperature 98.5 F Pulse Rate 110 H Respiratory Rate 16 Blood Pressure 112/85 Pulse Oximetry 95 Intake & Output 02/13/18 02/14/18 02/14/18 18:59 06:59 18:59 Intake Total 1212.5 / 1212.5 2475.0 / 2475.0 1050 / 1050 Output Total 500 / 500 305 / 305 Balance 712.5 / 712.5 2170.0 / 2170.0 1050 / 1050 Weight 87.3 kg Intake: IV 1212.5 / 1212.5 1675.0 / 1675.0 1050 / 1050 NS Inj 1,000 ML @ 125 mls/hr IV 800 / 800 1000 / 1000 1000 / 1000 .CONT .Q8H [facility] Rx#:[id number] Maxipime Inj 2,000 MG In NS Inj 100 / 100 100 / 100 0 / 0 100 ML @ 200 mls/hr IV.SIG Q12H [facility] Rx#:[id number] Cleocin 600 mg/NS Premix 600 mg 50 / 50 50 / 50 50 / 50 In 50 ml @ 100 mls/hr IV.SIG Q8H [facility] Rx#:[id number] Vancomycin Inj 1,250 MG In NS 262.5 / 262.5 525.0 / 525.0 Inj 250 ML @ 250 mls/hr IV.SIG Q8H [facility] Rx#:[id number] Oral 0 / 0 Anesthesia Amount 800 / 800 Output: Urine 500 / 500 300 / 300 Stool 0 / 0 Estimated Blood Loss 5 / 5 Other: Date of Last Bowel Movement 02/13/18 02/13/18 02/12/18 03:00 Abscess - Axilla Gram Stain - Final 02/12/18 03:00 Abscess - Axilla Wound Culture - Final S. aureus MRSA 02/11/18 21:10 Blood - Peripheral Aerobic Blood Culture - Preliminary No growth in 3 days 02/11/18 21:10 Blood - Peripheral Anaerobic Blood Culture - Preliminary No growth in 3 days 02/11/18 21:05 Blood - Peripheral Aerobic Blood Culture - Preliminary No growth in 3 days 02/11/18 21:05 Blood - Peripheral Anaerobic Blood Culture - Preliminary No growth in 3 days 02/13/18 19:25 Fluid - Other Gram Stain - Final 02/13/18 19:25 Fluid - Other Body Fluid Culture - Pending 02/13/18 19:25 Fluid - Other Fungal Smear - Pending 02/13/18 19:25 Fluid - Other Fungal Culture - Pending 02/13/18 19:25 Fluid - Other Acid Fast Bacilli Smear - Pending 02/13/18 19:25 Fluid - Other Mycobacterial Culture - Pending Lab - Hematology Results 02/13/18 02/14/18 04:10 06:14 WBC 14.8 H 15.0 H RBC 4.37 L 4.99 Hgb 13.2 15.0 Hct 37.9 L 43.2 MCV 86.8 86.6 MCH 30.2 30.0 MCHC 34.8 34.6 RDW 12.9 13.0 Plt Count 84 L 113 L D MPV 11.2 H 10.9 Prelim Diff (Auto) Slide review pending Manual diff required Neut % (Auto) 82.8 H Lymph % (Auto) 6.4 L [place] % (Auto) 9.9 H Eos % (Auto) 0.6 Baso % (Auto) 0.3 Neut # (Auto) 12.3 H Lymph # (Auto) 0.9 L [place] # (Auto) 1.5 H Eos # (Auto) 0.1 Baso # (Auto) 0.0 WBC Differential Manual diff final Manual diff final Seg Neuts % (Manual) 81 H 90 H Band Neuts % (Manual) 4 6 Lymphocytes % (Manual) 4 L 3 L Monocytes % (Manual) 10 H 1 Eosinophils % (Manual) 1 Abs Neuts (Manual) 12.6 H 14.4 H Differential Comment . . Platelet Estimate Low L Low L Platelet Morphology Normal Normal Lab - Chemistry Results 02/13/18 02/14/18 04:10 03:55 Sodium 140 142 Potassium 3.6 4.2 Chloride 107 107 Carbon Dioxide 23.7 22.9 Anion Gap 9 12 BUN 8 9 Creatinine 0.77 0.76 Estimated GFR Greater than 89 Greater than 89 Random Glucose 78 112 H Calcium 7.5 L 8.3 L D Imaging: ITS Impressions Chest X-Ray 02/13/18 00:00 CONCLUSION: Abnormal opacity at the right lung base of concern for pneumonia. Humerus CT 02/13/18 00:00 CONCLUSION: 1. Left axillary and chest wall cellulitis 2. Ill-defined fluid collections in the left axilla and left chest wall are characteristic of an inflammatory phlegmon/developing abscess. No discrete, well -defined fluid collections are identified at this time. Physical Exam: GENERAL: Well-nourished well-developed, not in acute distress SKIN: Cool and dry, no generalized rash HEAD: Atraumatic. Normocephalic. No temporal or scalp tenderness. EYES: Pupils equal round and reactive. Scleral icterus. No injection or drainage. No petechia ENT: Nothing abnormal detected NECK: Trachea midline. Supple, nontender, no meningeal signs. CARDIOVASCULAR: HS audible. RESPIRATORY: Clear to auscultation bilaterally. GASTROINTESTINAL: Abdomen soft nontender. MUSCULOSKELETAL: Left axilla with reduction in area of induration and area of erythema. Packing and dressing with sanguinous discharge noted. Overall much better than yday. NEUROLOGICAL: Alert oriented 3. Psych cooperative IV line sites ok. Assessment and Plan - Plan Sepsis present on admission Left axillary abscess and possible left lateral chest wall area abscess. Possible underlying infective myositis. Necrotizing fascitis as possibility. Cerebral palsy Recs Continue Cefepime IV Continue Vanco IV (target 10-15 if bacteremia then 15-20) Continue Clindamycin IV (for anaerobes and toxin neutralization effect) sandi PALACIOS [facility]as. Follow cultures Follow clinically. No family in room.
--- NOTE | 2018-02-14 13:54 | P.PNGS ---
Subjective Interval history: Up to chair; worried about IV; happy because he isn't having fevers anymore Physical Exam Vital signs: Vital Signs 02/13/18 19:46 02/13/18 20:00 02/13/18 20:15 Temperature 98.6 F 98.6 F 98.6 F Pulse Rate 105 H 127 H 105 H Respiratory Rate 22 37 H 25 H Blood Pressure 123/59 L 130/63 122/57 L Pulse Oximetry 87 L 92 L 92 L 02/13/18 20:30 02/13/18 20:45 02/13/18 20:55 Temperature 98.6 F 98.6 F Pulse Rate 100 H 100 H Respiratory Rate 27 H 20 Blood Pressure 115/60 115/61 Pulse Oximetry 92 L 93 L 92 L 02/13/18 21:00 02/13/18 21:15 02/13/18 21:30 Temperature 98.6 F 98.6 F 98.6 F Pulse Rate 97 H 96 H 90 Respiratory Rate 25 H 14 16 Blood Pressure 111/56 L 111/61 111/63 Pulse Oximetry 93 L 92 L 93 L 02/13/18 21:38 02/13/18 21:40 02/13/18 21:45 Temperature 98.6 F Pulse Rate 90 Respiratory Rate 18 Blood Pressure 108/61 Pulse Oximetry 96 96 94 L 02/13/18 22:00 02/13/18 22:20 02/13/18 22:30 Temperature 98.6 F 98.6 F Pulse Rate 105 H 90 Respiratory Rate 22 12 Blood Pressure 123/59 L 109/72 Pulse Oximetry 87 L 94 L 91 L 02/13/18 23:00 02/13/18 23:30 02/14/18 01:46 Temperature 98.6 F 98.2 F 98.3 F Pulse Rate 89 92 H 88 Respiratory Rate 12 14 18 Blood Pressure 104/64 111/65 117/69 Pulse Oximetry 91 L 92 L 93 L 02/14/18 05:59 02/14/18 08:00 02/14/18 08:17 Temperature 98.2 F 98.7 F Pulse Rate 85 92 H 82 Respiratory Rate 16 16 18 Blood Pressure 124/85 125/82 Pulse Oximetry 94 L 02/14/18 12:00 Temperature 98.5 F Pulse Rate 110 H Respiratory Rate 16 Blood Pressure 112/85 Pulse Oximetry 95 Intake & Output 02/13/18 02/14/18 02/14/18 18:59 06:59 18:59 Intake Total 1212.5 / 1212.5 2475.0 / 2475.0 1050 / 1050 Output Total 500 / 500 305 / 305 Balance 712.5 / 712.5 2170.0 / 2170.0 1050 / 1050 Weight 87.3 kg Intake: IV 1212.5 / 1212.5 1675.0 / 1675.0 1050 / 1050 NS Inj 1,000 ML @ 125 mls/hr IV 800 / 800 1000 / 1000 1000 / 1000 .CONT .Q8H [facility] Rx#:[id number] Maxipime Inj 2,000 MG In NS Inj 100 / 100 100 / 100 0 / 0 100 ML @ 200 mls/hr IV.SIG Q12H [facility] Rx#:[id number] Cleocin 600 mg/NS Premix 600 mg 50 / 50 50 / 50 50 / 50 In 50 ml @ 100 mls/hr IV.SIG Q8H [facility] Rx#:[id number] Vancomycin Inj 1,250 MG In NS 262.5 / 262.5 525.0 / 525.0 Inj 250 ML @ 250 mls/hr IV.SIG Q8H [facility] Rx#:[id number] Oral 0 / 0 Anesthesia Amount 800 / 800 Output: Urine 500 / 500 300 / 300 Stool 0 / 0 Estimated Blood Loss 5 / 5 Other: Date of Last Bowel Movement 02/13/18 02/13/18 Narrative: Alert and awake Cardio: RRR Resp: CTAB Abd: soft; non tender LEFT axillary--- packing removed; blue vessel loops in place; induration far less than yesterday; tender; re packed Assessment and Plan - Assessment (1) Axillary abscess Code(s): L02.419 - Cutaneous abscess of limb, unspecified Status: Acute Plan: 27 year old male with LEFT axillary abscess with extension to chest wall -POD1 I&D of LEFT axillary abscess -Regular diet -IV antibiotics -ID following -Afebrile -Continue daily packing dressings---discussed with MARCO ANTONIO Cordero
[2018-02-15] MEDS: Vancomycin Inj 1,250 MG in Sodium Chlor 0.9% Inj 250 ML IV.SIG SCH ×3 (03:00→23:30)
[2018-02-15] MEDS: MethylPREDNISolone Sod Succinate Inj 40 MG/ML Vial IV.PUSH SCH ×4 (03:00→22:13)
[2018-02-15] MEDS: Clindamycin 600 mg/NS Premix 600 MG/50 ML PIGGYBACK IV.SIG SCH ×3 (05:33→22:12)
[2018-02-15] MEDS: Senna/Docusate Sodium 8.6/50 MG Tablet PO SCH ×2 (09:43→22:12)
--- NOTE | 2018-02-15 09:48 | P.PNIM ---
Subjective Interval history: Reports some mild left axilla discomfort. Still draining. Waiting for breakfast. Physical Exam Vital signs: Vital Signs 02/14/18 12:00 02/14/18 15:39 02/14/18 16:00 Temperature 98.5 F 99.0 F Pulse Rate 110 H 104 H 104 H Respiratory Rate 16 16 16 Blood Pressure 112/85 119/73 Pulse Oximetry 95 95 02/14/18 20:00 02/14/18 20:59 02/15/18 00:00 Temperature 98.6 F 98.6 F Pulse Rate 104 H 106 H 95 H Respiratory Rate 18 18 18 Blood Pressure 118/71 123/73 Pulse Oximetry 94 L 94 L 02/15/18 04:00 02/15/18 08:00 02/15/18 08:41 Temperature 98.2 F 98.0 F Pulse Rate 85 102 H 83 Respiratory Rate 18 16 16 Blood Pressure 140/95 H 130/76 Pulse Oximetry 96 96 Intake & Output 02/14/18 02/15/18 02/15/18 18:59 06:59 18:59 Intake Total 2182.5 / 2182.5 312.5 / 312.5 Output Total 250 / 250 600 / 600 450 / 450 Balance 1932.5 / 1932.5 -287.5 / -287.5 -450 / -450 Weight 88 kg Intake: IV 1462.5 / 1462.5 312.5 / 312.5 NS Inj 1,000 ML @ 125 mls/hr IV 1000 / 1000 .CONT .Q8H [facility] Rx#:[id number] Maxipime Inj 2,000 MG In NS Inj 100 / 100 100 ML @ 200 mls/hr IV.SIG Q12H [facility] Rx#:[id number] Cleocin 600 mg/NS Premix 600 mg 100 / 100 50 / 50 In 50 ml @ 100 mls/hr IV.SIG Q8H [facility] Rx#:[id number] Vancomycin Inj 1,250 MG In NS 262.5 / 262.5 262.5 / 262.5 Inj 250 ML @ 250 mls/hr IV.SIG Q8H [facility] Rx#:[id number] Oral 720 / 720 Output: Urine 250 / 250 600 / 600 450 / 450 Other: # Voids 1 # Incontinent Voids 1 Date of Last Bowel Movement 02/14/18 02/14/18 # Bowel Movements 1 Narrative: GENERAL: This is a well-nourished, well-developed patient, in no apparent distress. CARDIOVASCULAR: Regular rate and rhythm RESPIRATORY: Clear to auscultation. Breath sounds equal bilaterally. No wheezes , rales, or rhonchi. GASTROINTESTINAL: Abdomen soft, non-tender, nondistended. Normal active bowel sounds MUSCULOSKELETAL: Extremities without clubbing, cyanosis, or edema. SKIN : Left axilla with blue loops with drainage, bandage clean dry intact Results - Labs CBC & Chem 7: 02/14/18 06:14 02/14/18 03:55 Microbiology 02/12/18 03:00 Abscess - Axilla Gram Stain - Final 02/12/18 03:00 Abscess - Axilla Wound Culture - Final S. aureus MRSA 02/11/18 21:10 Blood - Peripheral Aerobic Blood Culture - Preliminary No growth in 3 days 02/11/18 21:10 Blood - Peripheral Anaerobic Blood Culture - Preliminary No growth in 3 days 02/11/18 21:05 Blood - Peripheral Aerobic Blood Culture - Preliminary No growth in 3 days 02/11/18 21:05 Blood - Peripheral Anaerobic Blood Culture - Preliminary No growth in 3 days 02/13/18 19:25 Fluid - Other Gram Stain - Final Assessment and Plan - Plan 27-year-old male with a past medical history significant for cerebral palsy and multiple MRSA skin infections presents the emergency department for evaluation of the left axillary abscess. Sepsis with left axillary abscess on admission: History of MRSA infections. Meets sepsis criteria with fever T-max 103.2, tachycardia heart rate 127, leukocytosis WBC 15 K, suspected sourceabscess. Lactic acid 1.4. -Status post I&D in the ED 02/11 With formal incision and drainage in the OR with Dr. Rendon of the left axillary 02/14 -Continue antibiotics with IV cefepime and IV vancomycin and IV clindamycin per infectious disease, Dr. Conley and follow-up with final wound cultures. -Pain control with Tylenol, Percocet as needed -Continue IV fluid hydration -Preliminary wound culture with MRSA -Blood cultures with no growth to date Acute Bronchitis: patient with cough productive of yellow sputum -CXR reviewed, no acute findings -On antibiotics as above -Robitussin prn cough -Monitor for improvement Cerebral palsy: Chronic -Patient reports he uses a wheelchair and a walker -PT consulted DVT prophylaxis: Heparin sq Discharge Planning: discharge to home when cleared by infectious disease and general surgery.
--- NOTE | 2018-02-15 16:13 | P.PNGS ---
Subjective Interval history: Resting in bed; happy he hasn't had a fever since Tuesday Physical Exam Vital signs: Vital Signs 02/14/18 20:00 02/14/18 20:59 02/15/18 00:00 Temperature 98.6 F 98.6 F Pulse Rate 104 H 106 H 95 H Respiratory Rate 18 18 18 Blood Pressure 118/71 123/73 Pulse Oximetry 94 L 94 L 02/15/18 04:00 02/15/18 08:00 02/15/18 08:41 Temperature 98.2 F 98.0 F Pulse Rate 85 102 H 83 Respiratory Rate 18 16 16 Blood Pressure 140/95 H 130/76 Pulse Oximetry 96 96 02/15/18 15:20 Temperature Pulse Rate 83 Respiratory Rate 16 Blood Pressure Pulse Oximetry Intake & Output 02/14/18 02/15/18 02/15/18 18:59 06:59 18:59 Intake Total 2182.5 / 2182.5 412.5 / 412.5 50 / 50 Output Total 250 / 250 600 / 600 900 / 900 Balance 1932.5 / 1932.5 -187.5 / -187.5 -850 / -850 Weight 88 kg Intake: IV 1462.5 / 1462.5 412.5 / 412.5 50 / 50 NS Inj 1,000 ML @ 125 mls/hr IV 1000 / 1000 .CONT .Q8H [facility] Rx#:[id number] Maxipime Inj 2,000 MG In NS Inj 100 / 100 100 / 100 100 ML @ 200 mls/hr IV.SIG Q12H [facility] Rx#:[id number] Cleocin 600 mg/NS Premix 600 mg 100 / 100 50 / 50 50 / 50 In 50 ml @ 100 mls/hr IV.SIG Q8H [facility] Rx#:[id number] Vancomycin Inj 1,250 MG In NS 262.5 / 262.5 262.5 / 262.5 0 / 0 Inj 250 ML @ 250 mls/hr IV.SIG Q8H [facility] Rx#:[id number] Oral 720 / 720 Output: Urine 250 / 250 600 / 600 900 / 900 Other: # Voids 1 # Incontinent Voids 1 Date of Last Bowel Movement 02/14/18 02/14/18 02/15/18 # Bowel Movements 1 Narrative: Alert and awake Cardio: RRR Resp: CTAB Abd: soft non tender LEFT axillary--- packing removed--- blue vessel loop remains in place; ABD applied to area and secured with tape Assessment and Plan - Assessment (1) Axillary abscess Code(s): L02.419 - Cutaneous abscess of limb, unspecified Status: Acute Plan: 27 year old male with LEFT axillary abscess with extension to chest wall -POD2 I&D of LEFT axillary abscess -Regular diet -IV antibiotics---transition to PO when okay with ID -Change ABD pad as needed -Okay to shower
[2018-02-16] MEDS: MethylPREDNISolone Sod Succinate Inj 40 MG/ML Vial IV.PUSH SCH ×4 (05:18→22:18)
[2018-02-16] MEDS: Vancomycin Inj 1,250 MG in Sodium Chlor 0.9% Inj 250 ML IV.SIG SCH ×3 (05:18→22:18)
[2018-02-16] MEDS: Clindamycin 600 mg/NS Premix 600 MG/50 ML PIGGYBACK IV.SIG SCH (05:19)
[2018-02-16 05:40] LABS: Glomerular Filtration Rate Greater Than 89 mL/min (>89)
--- NOTE | 2018-02-16 09:47 | P.PNIM ---
Subjective Interval history: Wants to go home. Reports left arm pain better. Physical Exam Vital signs: Vital Signs 02/15/18 15:20 02/15/18 16:00 02/15/18 20:00 Temperature 99 F 98 F Pulse Rate 83 91 H 83 Respiratory Rate 14 16 Blood Pressure 134/67 146/97 H Pulse Oximetry 96 98 02/15/18 21:05 02/16/18 00:00 02/16/18 04:00 Temperature 99 F 98.4 F Pulse Rate 85 75 77 Respiratory Rate 18 Blood Pressure 115/73 131/83 Pulse Oximetry 95 97 Intake & Output 02/15/18 02/16/18 02/16/18 18:59 06:59 18:59 Intake Total 462.5 / 462.5 625.0 / 625.0 Output Total 900 / 900 600 / 600 Balance -437.5 / -437.5 25.0 / 25.0 Weight 83.5 kg Intake: IV 462.5 / 462.5 625.0 / 625.0 Maxipime Inj 2,000 MG In NS Inj 100 / 100 0 / 0 100 ML @ 200 mls/hr IV.SIG Q12H [facility] Rx#:[id number] Cleocin 600 mg/NS Premix 600 mg 100 / 100 100 / 100 In 50 ml @ 100 mls/hr IV.SIG Q8H [facility] Rx#:[id number] Vancomycin Inj 1,250 MG In NS 262.5 / 262.5 525.0 / 525.0 Inj 250 ML @ 250 mls/hr IV.SIG Q8H [facility] Rx#:[id number] Output: Urine 900 / 900 600 / 600 Other: # Incontinent Voids 0 Date of Last Bowel Movement 02/15/18 02/15/18 Narrative: GENERAL: This is a well-nourished, well-developed patient, in no apparent distress. SKIN: left axilla shows decrease swelling and redness, bandage over area CARDIOVASCULAR: Regular rate and rhythm RESPIRATORY: Clear to auscultation. Breath sounds equal bilaterally. No wheezes , rales, or rhonchi. GASTROINTESTINAL: Abdomen soft, non-tender, nondistended. Normal active bowel sounds MUSCULOSKELETAL: Extremities without clubbing, cyanosis, or edema. NEURO: Moves all ext x4 Results - Labs CBC & Chem 7: 02/14/18 06:14 02/16/18 04:25 Laboratory Results - last 24 hr 02/16/18 02/16/18 04:25 04:25 Creatinine 0.76 Estimated GFR Greater than 89 C-Reactive Protein 3.30 H Microbiology 02/13/18 19:25 Fluid - Other Gram Stain - Final 02/13/18 19:25 Fluid - Other Body Fluid Culture - Preliminary S. aureus MRSA 02/13/18 19:25 Fluid - Other Fungal Smear - Final No fungal elements seen 02/13/18 19:25 Fluid - Other Acid Fast Bacilli Smear - Final No acid fast bacilli seen 02/11/18 21:10 Blood - Peripheral Aerobic Blood Culture - Preliminary No growth in 4 days 02/11/18 21:10 Blood - Peripheral Anaerobic Blood Culture - Preliminary No growth in 4 days 02/11/18 21:05 Blood - Peripheral Aerobic Blood Culture - Preliminary No growth in 4 days 02/11/18 21:05 Blood - Peripheral Anaerobic Blood Culture - Preliminary No growth in 4 days Assessment and Plan - Plan 27-year-old male with a past medical history significant for cerebral palsy and multiple MRSA skin infections presents the emergency department for evaluation of the left axillary abscess. Sepsis with left axillary abscess on admission: History of MRSA infections. Meets sepsis criteria with fever T-max 103.2, tachycardia heart rate 127, leukocytosis WBC 15 K, suspected sourceabscess. Lactic acid 1.4. - clinically resolving -Status post I&D in the ED 02/11 With formal incision and drainage in the OR with Dr. Rendon of the left axillary 02/14 -Continue antibiotics with IV cefepime and IV vancomycin and IV clindamycin per infectious disease, Dr. Conley and follow-up with final wound cultures. D/W ID with concerns of deep tissue abscess, will need to continue with IV abx and obtain CRP level, await ID clearance prior to discharge -Pain control with Tylenol, Percocet as needed -Continue IV fluid hydration -Wound culture with MRSA -Blood cultures with no growth to date Acute Bronchitis: patient with cough - resolving -CXR reviewed, no acute findings -On antibiotics as above -Robitussin prn cough -Monitor for improvement Cerebral palsy: Chronic -Patient reports he uses a wheelchair and a walker -PT consulted DVT prophylaxis: Heparin sq Discharge Planning: discharge to home when cleared by infectious disease and general surgery.
[2018-02-16] MEDS: Senna/Docusate Sodium 8.6/50 MG Tablet PO SCH ×2 (10:13→22:21)
--- NOTE | 2018-02-16 15:13 | P.PNGS ---
Subjective Interval history: Resting in bed No complaints Would like to go home soon Physical Exam Vital signs: Vital Signs 02/15/18 15:20 02/15/18 16:00 02/15/18 20:00 Temperature 99 F 98 F Pulse Rate 83 91 H 83 Respiratory Rate 16 14 16 Blood Pressure 134/67 146/97 H Pulse Oximetry 96 98 02/15/18 21:05 02/16/18 00:00 02/16/18 04:00 Temperature 99 F 98.4 F Pulse Rate 85 75 77 Respiratory Rate 18 16 18 Blood Pressure 115/73 131/83 Pulse Oximetry 95 97 02/16/18 08:00 02/16/18 10:33 Temperature 99.0 F Pulse Rate 100 H 94 H Respiratory Rate 18 16 Blood Pressure 141/63 H Pulse Oximetry 96 Intake & Output 02/15/18 02/16/18 02/16/18 18:59 06:59 18:59 Intake Total 462.5 / 462.5 625.0 / 625.0 Output Total 900 / 900 600 / 600 Balance -437.5 / -437.5 25.0 / 25.0 Weight 83.5 kg Intake: IV 462.5 / 462.5 625.0 / 625.0 Maxipime Inj 2,000 MG In NS Inj 100 / 100 0 / 0 100 ML @ 200 mls/hr IV.SIG Q12H [facility] Rx#:[id number] Cleocin 600 mg/NS Premix 600 mg 100 / 100 100 / 100 In 50 ml @ 100 mls/hr IV.SIG Q8H [facility] Rx#:[id number] Vancomycin Inj 1,250 MG In NS 262.5 / 262.5 525.0 / 525.0 Inj 250 ML @ 250 mls/hr IV.SIG Q8H [facility] Rx#:[id number] Output: Urine 900 / 900 600 / 600 Other: # Incontinent Voids 0 Date of Last Bowel Movement 02/15/18 02/15/18 Narrative: Alert and awake CardiO: RRR Resp: CTAB Abd: soft non tender LEFT axillary--- redness almost resolved; blue vessel loop in place; ABD in place with minimal output Assessment and Plan - Assessment (1) Axillary abscess Code(s): L02.419 - Cutaneous abscess of limb, unspecified Status: Acute Plan: 27 year old male with LEFT axillary abscess with extension to chest wall -POD3 I&D of LEFT axillary abscess -Regular diet -IV antibiotics---transition to PO when okay with ID -Change ABD pad as needed -Okay to shower -GS clear for DC when cleared with ID -Will plan to remove blue vessel loop in office February 23 at 11:30AM
[2018-02-17] MEDS: Vancomycin Inj 1,250 MG in Sodium Chlor 0.9% Inj 250 ML IV.SIG SCH ×3 (03:52→21:19)
[2018-02-17] MEDS: MethylPREDNISolone Sod Succinate Inj 40 MG/ML Vial IV.PUSH SCH ×4 (03:53→21:19)
[2018-02-17] MEDS: Senna/Docusate Sodium 8.6/50 MG Tablet PO SCH ×2 (09:55→21:19)
--- NOTE | 2018-02-17 10:30 | P.PNIM ---
Subjective Interval history: States that she he wants to go home. Reports left armpit is slightly itching. No pain at this time. Physical Exam Vital signs: Vital Signs 02/16/18 10:33 02/16/18 12:00 02/16/18 15:55 Temperature 98.9 F Pulse Rate 94 H 98 H 87 Respiratory Rate 16 18 16 Blood Pressure 140/74 Pulse Oximetry 96 02/16/18 16:00 02/16/18 20:00 02/17/18 00:00 Temperature 97.6 F 97.9 F 98.2 F Pulse Rate 77 86 77 Respiratory Rate 18 18 20 Blood Pressure 135/93 H 133/81 111/63 Pulse Oximetry 95 98 95 02/17/18 04:00 02/17/18 05:12 02/17/18 08:00 Temperature 97.8 F 98.1 F Pulse Rate 75 58 L 75 Respiratory Rate 18 20 21 Blood Pressure 136/80 146/71 H Pulse Oximetry 96 93 L 02/17/18 09:35 Temperature Pulse Rate 104 H Respiratory Rate 14 Blood Pressure Pulse Oximetry Intake & Output 02/16/18 02/17/18 02/17/18 18:59 06:59 18:59 Intake Total 982.5 / 982.5 630.4 / 630.4 Output Total 601 / 601 960 / 960 Balance 381.5 / 381.5 -329.6 / -329.6 Intake: IV 262.5 / 262.5 630.4 / 630.4 Vancomycin Inj 1,250 MG In NS 262.5 / 262.5 530.4 / 530.4 Inj 250 ML @ 250 mls/hr IV.SIG Q8H [facility] Rx#:[id number] Oral 720 / 720 Output: Urine 600 / 600 960 / 960 Stool Other: Date of Last Bowel Movement 02/16/18 Narrative: GENERAL: This is a well-nourished, well-developed patient, in no apparent distress. CARDIOVASCULAR: Regular rate and rhythm RESPIRATORY: Clear to auscultation. Breath sounds equal bilaterally. No wheezes , rales, or rhonchi. GASTROINTESTINAL: Abdomen soft, non-tender, nondistended. Normal active bowel sounds SKIN: Left axillary area with bandage in place less swelling and redness, loop vessels are still in place. NEURO: Alert & Oriented x4 to person, place, time. Moves all ext x4 Results - Labs CBC & Chem 7: 02/14/18 06:14 02/16/18 04:25 Microbiology 02/13/18 19:25 Fluid - Other Gram Stain - Final 02/13/18 19:25 Fluid - Other Body Fluid Culture - Final S. aureus MRSA 02/11/18 21:10 Blood - Peripheral Aerobic Blood Culture - Final No growth in 5 days 02/11/18 21:10 Blood - Peripheral Anaerobic Blood Culture - Final No growth in 5 days 02/11/18 21:05 Blood - Peripheral Aerobic Blood Culture - Final No growth in 5 days 02/11/18 21:05 Blood - Peripheral Anaerobic Blood Culture - Final No growth in 5 days Assessment and Plan - Plan 27-year-old male with a past medical history significant for cerebral palsy and multiple MRSA skin infections presents the emergency department for evaluation of the left axillary abscess. Sepsis with left axillary abscess on admission: History of MRSA infections. Meets sepsis criteria with fever T-max 103.2, tachycardia heart rate 127, leukocytosis WBC 15 K, suspected sourceabscess. Lactic acid 1.4. - clinically improving -Status post I&D in the ED 02/11 With formal incision and drainage in the OR with Dr. Rendon of the left axillary 02/14; f/u appt for vessel loops to be removed 02/23. -Continue antibiotics with IV cefepime and IV vancomycin and IV clindamycin per infectious disease, Dr. Conley and follow-up with final wound cultures. D/W ID with concerns of deep tissue abscess, will need to continue with IV abx and obtain CRP level, await ID clearance prior to discharge, she will reevaluate in am. obtained CRP level -Pain control with Tylenol, Percocet as needed -Continue IV fluid hydration -Wound culture with MRSA -Blood cultures with no growth to date Acute Bronchitis: patient with cough - resolving -CXR reviewed, no acute findings -On antibiotics as above -Robitussin prn cough -Monitor for improvement Cerebral palsy: Chronic -Patient reports he uses a wheelchair and a walker -PT consulted DVT prophylaxis: Heparin sq Discharge Planning: discharge to home when cleared by infectious disease and general surgery. [facility] will be set up
--- NOTE | 2018-02-17 10:32 | P.DCO ---
- Diagnosis (2) Sepsis (3) Cerebral palsy - Home Health Nursing Order: Wound care and dressing changes Instructions: left axillary ABD dressing changes daily, keep blue loop vessels in until evaluated by General Surgery Dr. Rendon - Certification I have seen patient Dash Kim JR on 02/17/18. My clinical findings support the need for the requested home health care services because: Limited ability to care for self I certify that my clinical findings support that this patient is homebound because: Impaired cognitive ability/safety, Need for psychosocial assistance (2) Sepsis Qualifiers: Sepsis type: sepsis due to unspecified organism Qualified Code(s): A41.9 - Sepsis, unspecified organism (3) Cerebral palsy Qualifiers: Cerebral palsy type: unspecified type Qualified Code(s): G80.9 - Cerebral palsy, unspecified
[2018-02-18] MEDS: MethylPREDNISolone Sod Succinate Inj 40 MG/ML Vial IV.PUSH SCH ×3 (04:17→13:24)
[2018-02-18] MEDS: Vancomycin Inj 1,250 MG in Sodium Chlor 0.9% Inj 250 ML IV.SIG SCH ×2 (04:18→12:12)
--- NOTE | 2018-02-18 09:05 | P.DS ---
Date of admission: 02/12/18 00:29 Primary care physician: Julien Pena MD Brief History from admission: 27-year-old male with a past medical history significant for cerebral palsy and multiple MRSA skin infections presents the emergency department for evaluation of the left axillary abscess. Reports the symptoms began approximately 3 days ago. He endorses positive fevers and chills with associated nausea and vomiting. The patient denies any trauma to the area. The patient reports that the area under the arm burst today and purulent drainage was produced. An I&D was performed in the emergency department. DS: Diagnosis - Discharge Diagnosis (1) Axillary abscess Status: Resolved Diagnosis: Principal (2) Sepsis Status: Resolved Diagnosis: Principal (3) Cerebral palsy Status: Chronic Diagnosis: Secondary DS: Summary Hospital Course: 27-year-old white male with a history of cerebral palsy was admitted for left- sided axillary abscess and infectious disease and general surgery was consulted. General surgery performed a incision and drainage in the OR on . Infectious disease recommended IV cefepime E, vancomycin and clindamycin secondary deep tissue infection. Drain was placed along with blue vessel loops which will be removed as an outpatient by general surgery on February 23. Outpatient antibiotics recommendations to be placed by infectious disease to continue with 10 more days of Bactrim DS. - Time Spent with Patient Total time spent providing and/or coordinating discharge services: Less than 30 minutes - Quality: VTE Deep Vein Thrombosis/Pulmonary Embolism Present on Admission: No Exam Vital signs: Vital Signs 02/17/18 09:35 02/17/18 12:00 02/17/18 15:30 Temperature 98.6 F Pulse Rate 104 H 110 H 94 H Respiratory Rate 14 20 12 Blood Pressure 132/63 Pulse Oximetry 92 L 02/17/18 16:00 02/17/18 20:00 02/17/18 21:15 Temperature 98.1 F 98 F Pulse Rate 113 H 105 H 74 Respiratory Rate 20 20 16 Blood Pressure 133/78 142/72 H Pulse Oximetry 95 98 02/18/18 00:00 02/18/18 04:00 Temperature 97.9 F 98.1 F Pulse Rate 97 H 99 H Respiratory Rate 17 17 Blood Pressure 136/68 132/68 Pulse Oximetry 98 82 L Intake & Output 02/17/18 02/18/18 02/18/18 18:59 06:59 18:59 Intake Total 742.5 / 742.5 525.0 / 525.0 Output Total 600 / 600 1240 / 1240 Balance 142.5 / 142.5 -715.0 / -715.0 Weight 80.9 kg Intake: IV 262.5 / 262.5 525.0 / 525.0 Vancomycin Inj 1,250 MG In NS 262.5 / 262.5 525.0 / 525.0 Inj 250 ML @ 250 mls/hr IV.SIG Q8H [facility] Rx#:[id number] Oral 480 / 480 Output: Urine 600 / 600 1240 / 1240 Other: Date of Last Bowel Movement 02/17/18 # Bowel Movements 2 1 Results Procedures completed during hospitalization: 02/13 incision and drainage of the left axillary abscess with general surgery Dr. Cervantes - Impressions ITS Impressions Chest X-Ray 02/13/18 00:00 CONCLUSION: Abnormal opacity at the right lung base of concern for pneumonia. Humerus CT 02/13/18 00:00 CONCLUSION: 1. Left axillary and chest wall cellulitis 2. Ill-defined fluid collections in the left axilla and left chest wall are characteristic of an inflammatory phlegmon/developing abscess. No discrete, well -defined fluid collections are identified at this time. Discharge Plan - Discharge Disposition Patient Disposition: /Home Health Service - Discharge Condition Condition: Good - Discharge Order Discharge Orders: Discharge Order (Routine); Ordered 02/18/18 Ordered By: Diane Nevarez General Surgery Clear for Discharge (Routine); Ordered 02/16/18 Ordered By: Adelita Olivire - Discharge Details Anticipated Discharge Date: 02/18/18 - Physicians Team Primary Care Provider: Julien Pena Attending Provider: Diane Nevarez Other Providers: Ana Conley MD ; Mars Rendon MD
[2018-02-18] MEDS: Senna/Docusate Sodium 8.6/50 MG Tablet PO SCH (09:06)
[2018-02-18 09:42] LABS: Baso % (Auto) 0.1 % (0.0-2.0); Eos # (Auto) 0.1 th/mm3 (0.0-0.4); Eos % (Auto) 0.6 % (0.0-4.0); Hematocrit 44.3 % (39.0-51.0); Hemoglobin 15.2 gm/dL (13.0-17.0); Lymph # (Auto) 1.5 th/mm3 (1.0-4.8); Lymph % (Auto) 6.8 % (9.0-44.0); Mean Corpuscular HGB Conc 34.4 % (32.0-36.0); Mean Corpuscular Hemoglobin 30.1 pg (27.0-34.0); Mean Corpuscular Volume 87.5 fL (80.0-100.0); Mono # (Auto) 0.8 th/mm3 (0.0-0.9); Mono % (Auto) 3.5 % (0.0-8.0); Neut # (Auto) 19.3 th/mm3 (1.8-7.7); Platelet Count 95 th/mm3 (150-450); Red Blood Count 5.06 mil/mm3 (4.50-5.90); Red Cell Distribution Width 13.4 % (11.6-17.2); White Blood Count 21.7 th/mm3 (4.0-11.0)
[2018-02-18 10:03] LABS: Glomerular Filtration Rate Greater Than 89 mL/min (>89)
[2018-02-18 10:46] LABS: Metamyelocytes 6 % (0-1)
[2018-02-18 10:47] LABS: Lymphocytes 13 % (9-44); Platelet Morphology Normal (Normal); RBC Morphology Normal (Normal)
--- NOTE | 2018-02-18 14:19 | P.PNID ---
Subjective Remarks: is a 27 y/o CM with PMHx significant for Cerebral palsy and multiple MRSA skin infections. Patient presents the emergency department for evaluation of the left axillary abscess which per review of records appears to have started 3 days SECTIONIZER but patient is not a reliable historian for reasons stated above. He also developed fevers, chills, associated with nausea and vomiting. No reported trauma to the area. There was reportedly spontaneous eruption of the abscess and additionally he underwent I&D bedside in the ED. Patient underwent evaluation for sepsis workup and was started on empiric Cefepime IV and Vanco IV. Despite this regimen the patient continues to show signs of ongoing sepsis with persistent fevers, tachycardia and leucocytosis. Upon my evaluation in the ED patient had restricted movement at the left shoulder level due to pain. There was significant induration and pain noted. The area of induration appears to have spread beyond the line of demarcation. ID consulted for evaluation and Mment of Sepsis, Left axillary and left chest wall abscess, possible underlying infective myositis. Medical History Cerebral palsy (Acute) Hamstring tightness Skin infection, bacterial Overnight events reviewed No fevers No rash No diarrhea s/p drainage of the axillary and chest wall abscess in OR Feels well wishes to go home. Melisa Ramos in room updated about the plan. Antibiotics: Vanco IV Lines: Lines ok Past Medical History: reviewed Allergies/Adverse Reactions: Allergies No Known Allergies Allergy (Verified 02/11/18 20:22) Objective Vital Signs 02/17/18 15:30 02/17/18 16:00 02/17/18 20:00 Temperature 98.1 F 98 F Pulse Rate 94 H 113 H 105 H Respiratory Rate 12 20 20 Blood Pressure 133/78 142/72 H Pulse Oximetry 95 98 02/17/18 21:15 02/18/18 00:00 02/18/18 04:00 Temperature 97.9 F 98.1 F Pulse Rate 74 97 H 99 H Respiratory Rate 16 17 17 Blood Pressure 136/68 132/68 Pulse Oximetry 98 82 L 02/18/18 08:00 02/18/18 12:00 Temperature 98.7 F 98.7 F Pulse Rate 71 87 Respiratory Rate 20 20 Blood Pressure 149/93 H 129/68 Pulse Oximetry 95 94 L Intake & Output 02/17/18 02/18/18 02/18/18 18:59 06:59 18:59 Intake Total 742.5 / 742.5 525.0 / 525.0 262.5 / 262.5 Output Total 600 / 600 1240 / 1240 Balance 142.5 / 142.5 -715.0 / -715.0 262.5 / 262.5 Weight 80.9 kg Intake: IV 262.5 / 262.5 525.0 / 525.0 262.5 / 262.5 Vancomycin Inj 1,250 MG In NS 262.5 / 262.5 525.0 / 525.0 262.5 / 262.5 Inj 250 ML @ 250 mls/hr IV.SIG Q8H [facility] Rx#:[id number] Oral 480 / 480 Output: Urine 600 / 600 1240 / 1240 Other: Date of Last Bowel Movement 02/17/18 # Bowel Movements 2 1 02/13/18 19:25 Fluid - Other Gram Stain - Final 02/13/18 19:25 Fluid - Other Body Fluid Culture - Final S. aureus MRSA 02/11/18 21:10 Blood - Peripheral Aerobic Blood Culture - Final No growth in 5 days 02/11/18 21:10 Blood - Peripheral Anaerobic Blood Culture - Final No growth in 5 days 02/11/18 21:05 Blood - Peripheral Aerobic Blood Culture - Final No growth in 5 days 02/11/18 21:05 Blood - Peripheral Anaerobic Blood Culture - Final No growth in 5 days 02/13/18 19:25 Fluid - Other Fungal Smear - Final No fungal elements seen 02/13/18 19:25 Fluid - Other Fungal Culture - Pending 02/13/18 19:25 Fluid - Other Acid Fast Bacilli Smear - Final No acid fast bacilli seen 02/13/18 19:25 Fluid - Other Mycobacterial Culture - Pending Lab - Hematology Results 02/18/18 08:40 WBC 21.7 H RBC 5.06 Hgb 15.2 Hct 44.3 MCV 87.5 MCH 30.1 MCHC 34.4 RDW 13.4 Plt Count 95 L MPV 11.0 Prelim Diff (Auto) Slide review pending Neut % (Auto) 89.0 H Lymph % (Auto) 6.8 L [place] % (Auto) 3.5 Eos % (Auto) 0.6 Baso % (Auto) 0.1 Neut # (Auto) 19.3 H Lymph # (Auto) 1.5 [place] # (Auto) 0.8 Eos # (Auto) 0.1 Baso # (Auto) 0.0 WBC Differential Manual diff final Seg Neuts % (Manual) 70 Band Neuts % (Manual) 11 H Lymphocytes % (Manual) 13 Metamyelocytes % (Man) 6 H Abs Neuts (Manual) 18.9 H Differential Comment . Platelet Estimate Low L Platelet Morphology Normal RBC Morphology Normal Lab - Chemistry Results 02/18/18 08:40 Creatinine 0.71 Estimated GFR Greater than 89 Imaging: ITS Impressions Chest X-Ray 02/13/18 00:00 CONCLUSION: Abnormal opacity at the right lung base of concern for pneumonia. Humerus CT 02/13/18 00:00 CONCLUSION: 1. Left axillary and chest wall cellulitis 2. Ill-defined fluid collections in the left axilla and left chest wall are characteristic of an inflammatory phlegmon/developing abscess. No discrete, well -defined fluid collections are identified at this time. Physical Exam: GENERAL: Well-nourished well-developed, not in acute distress SKIN: Cool and dry, no generalized rash HEAD: Atraumatic. Normocephalic. No temporal or scalp tenderness. EYES: Pupils equal round and reactive. Scleral icterus. No injection or drainage. No petechia ENT: Nothing abnormal detected NECK: Trachea midline. Supple, nontender, no meningeal signs. CARDIOVASCULAR: HS audible. RESPIRATORY: Clear to auscultation bilaterally. GASTROINTESTINAL: Abdomen soft nontender. MUSCULOSKELETAL: Left axilla with remarkable improvement. Packing still in place. NEUROLOGICAL: Alert oriented 3. Psych cooperative IV line sites ok. Assessment and Plan - Plan Sepsis present on admission Left axillary abscess and possible left lateral chest wall area abscess. Possible underlying infective myositis. Necrotizing fascitis as possibility. Cerebral palsy Recs Continue Vanco IV (target 10-15 if bacteremia then 15-20) while in hospital. Ok to discharge home on oral bactrim DS f0r 10 days sandi Crowell. Continue Clindamycin IV (for anaerobes and toxin neutralization effect) sandi Crowell. Has follow up with surgeon in office. Will sign off please call back if any change in clinical condition or questions.
== END 2018-02-18 16:14 | disposition home health service (06) ==
LOC: NEPE 19:32 → NEDA 02-12 00:29 → NEPFCDU 02-12 03:06 → N05 02-13 13:47
PROVIDERS: ADMIT Family Medicine; ATTEND Family Medicine